=== PATIENT | female | born 1960 | race Two or more races ===

== ENCOUNTER 2020-07-01 07:24 | Emergency (ER) | payer MEDICARE, MEDICAID, SELFPAY ==
[2020-07-01 07:43] VITALS: BP 119/49; PULSE 74; RESP 20; TEMP 36.4; O2SAT 98; BMI 29.2
[2020-07-01 07:52] VITALS: BP 129/49; PULSE 78; RESP 20; TEMP 36.6; O2SAT 98
--- NOTE | 2020-07-01 08:14 | CT_ITS ---
EXAMINATION: CT HEAD WITHOUT CONTRAST CLINICAL INFORMATION: Status post fall. COMPARISON: 06/21/2020 TECHNIQUE: Contiguous axial imaging was performed from the skull base to vertex without intravenous administration of contrast. This CT examination was performed using dose optimization techniques as appropriate, variously including the following: *Automated exposure control *Adjustment of mA and/or kV according to patient size (this includes techniques or standardized protocols for targeted exams where dose is matched to indication/reason for exam; i.e. extremities or head) *Use of iterative reconstruction technique DLP: 649 mGy-cm FINDINGS: There is no evidence of acute intracranial hemorrhage or territorial infarction. No abnormal mass effect or midline shift is seen. Mack to white matter differentiation is well preserved. No extra-axial fluid collections are identified. The ventricles are normal in size. There is no abnormal attenuation within the brain parenchyma. The osseous structures and soft tissues are normal. The mastoid air cells and visualized portions of the paranasal sinuses are well aerated. IMPRESSION: No acute intracranial pathology.
--- NOTE | 2020-07-01 08:33 | ED_ITS ---
HPI - Headache General Chief Complaint: Headache Stated Complaint: head pain since 4am Time Seen by Provider: 07/01/20 08:12 Source: patient Mode of arrival: ambulatory Limitations: language barrier History of Present Illness HPI Narrative: patient's history of migraine and lupus 4 days ago patient got up from the bed felt dizzy fell and hit her right side of the head to the stand since then complaining of headache getting worse today headache was worse especially came to the hospital also she peeling dizziness similar to her vertigo in the past taking meclizine which is not helping MD elicited complaint: headache, migraine and other Onset (ago): day(s) (4) Onset description: gradually Location: right and temporal Exacerbating factors: movement of head/neck Relieving factors: nothing Associated symptoms: none Treatments prior to arrival: acetaminophen Related Data Previous Rx's Medication Instructions Recorded tizanidine 4 mg tablet 4 mg PO TID PRN 30 Days #90 tab 06/28/20 Allergies Allergy/AdvReac Type Severity Reaction Status Date / Time aspirin [ASA] Allergy Mild BLEEDING, Unverified 06/10/20 18:51 lip edema lidocaine [LIDOCAINE] Allergy Mild SWELLING,ITCHING, Unverified 06/10/20 18:51 pruritus latex [LATEX] Allergy Unknown SWELLING Unverified 06/10/20 18:51 Latex Allergy Unknown Unverified 04/12/20 00:00 nabumetone Allergy Unknown pruritus Verified 12/02/19 00:00 Pt states no food allergies Allergy Unknown Uncoded 04/12/20 00:00 Review of Systems Review of Systems: Constitutional : No Weight loss, No Fever, No Chills, No Night Sweats, No Fatigue, No Malaise ENT/Mouth : No Hearing loss, No Ear Pain, No Nasal Congestion, No Sinus Pain, No Hoarseness, No sore throat, No Rhinorrhea, No Swallowing Difficulty Eyes: No Eye Pain, No Swelling, No Redness, No Foreign Body, No Discharge, No Vision Changes Cardiovascular : No Chest Pain, No SOB, No Dyspnea on Exertion, No Orthopnea, No Edema, No Palpitations Respiratory : No Cough, No Sputum, No Wheezing, No Smoke Exposure, No Dyspnea Gastrointestinal : No Nausea, No Vomiting, No Diarrhea, No Constipation, No abdominal Pain, No Hematochezia, No Melena Genitourinary : no irregular bleeding, No Dysuria, No Urinary Frequency, No H ematuria, No Urinary Incontinence, No Urgency, No Flank Pain, No Urinary Flow Changes, No Hesitancy Musculoskeletal : No joint pain, No Myalgias, No Joint Swelling Skin : No Skin Lesions, No rash Neuro : No Weakness, No Numbness, No Paresthesias, No Loss of Consciousness, Psych : No Anxiety/Panic, No Depression, No SI/HI/AH/VH, No Social Issues, Heme/Lymph: No Bruising, No Bleeding,No Lymphadenopathy Endocrine : No Polyuria, No Polydipsia, No Temperature Intolerance Yes all other systems are reviewed and are negative [facility] Past Medical History Medical History Muscle spasm Social History Social History Alcohol intake: unknown Smoking Status: Never smoker Use of substances other than those prescribed or required for medical reasons: No Advance Directives: Yes Advance Directives Information Provided: Yes Advance Directives on File: No Physical Exam Vital Signs and I&O and Narrative: Vital Signs and I&O: Vital Signs Temp 97.9 F 07/01/20 07:52 Pulse 78 07/01/20 07:52 Resp 20 07/01/20 07:52 BP 129/49 L 07/01/20 07:52 Pulse Ox 98 07/01/20 07:52 Intake & Output 06/30/20 07/01/20 07/01/20 18:59 06:59 18:59 Weight 79.832 kg Body Mass Index 29.2 VITAL SIGNS: Reviewed. GENERAL: Well developed, well nourished, in no acute distress. HEAD: Normocephalic/atraumatic, Posterior oropharynx was without edema, erythema or exudate. EYES: PERRLA, EOMI intact without pain, no nystagmus/pallor/icterus noted EARS: Ext canals without abnormality, TMs non-bulging and non-erythematous NOSE: Nares patent bilateral OROPHARYNX: no oral lesions noted, posterior pharynx clear and non-erythematous without noted tonsillar enlargement/erythema/exudates NECK: Supple, no adenopathy LUNGS: Normal breath sounds. No adventitious sounds or accessory muscle use CARDIOVASCULAR: Regular rate and rhythm without noted murmurs, no JVD or lower extremity edema. ABDOMEN: Soft, non-tender, non-distended with bowel sounds. No rigidity. No guarding. No palpable masses or hernias noted MUSCULOSKELETAL: No tenderness, deformities, or effusions noted on gross inspection. EXTREMITIES: No cyanosis, clubbing or edema. SKIN: Inspection of the skin reveals no rashes, ulcerations, jaundice, pallor, or petechiae NEUROLOGIC: Alert and oriented x 3. Strength and sensation to light touch were grossly intact x 4. Discharge Plan Discharge Prescriptions: No Action tizanidine 4 mg tablet 4 mg PO TID PRN (Reason: muscle spasticity) 30 Days Qty: 90 RF: 3
[2020-07-01 08:34] LABS: MANUAL DIFF FLAG NO
[2020-07-01 08:37] LABS: Basophils Percent Auto 0.4 % (0-2); Eosinophils Absolute Auto 0.1 X10*3/uL (0.0-0.4); Eosinophils Percent Auto 1.9 % (0-4); Hematocrit 35.3 % (37-47); Hemoglobin 12.2 g/dl (12.0-16.0); Imm Gran Abs Auto 0.01 X10*3/uL (0.00-0.03); Imm Gran Pct Auto 0.1 % (0.0-0.4); Lymphocytes Absolute Auto 1.8 X10*3/uL (1.2-4.9); Lymphocytes Percent Auto 26.9 % (20-40); Mean Corpuscular HGB Conc 34.6 g/dl (31.0-35.0); Mean Corpuscular Hemoglobin 27.8 pg (27.0-33.0); Mean Corpuscular Volume 80.4 fL (80-98); Mean Platelet Volume 10.1 fL (9.4-12.3); Monocytes Absolute Auto 0.6 X10*3/uL (0.1-1.2); Monocytes Percent Auto 8.5 % (2-11); Neutrophils Absolute Auto 4.2 X10*3/uL (2.0-8.3); Neutrophils Percent Auto 62.2 % (45-73); Platelet Count 181 X10*3/uL (160-400); Red Blood Count 4.39 X10*6/uL (4.20-5.50); Red Cell Distribution Width 13.8 % (11.0-16.0); White Blood Count 6.8 X10*3/uL (4.8-10.8)
[2020-07-01 09:05] LABS: Anion Gap 12 (12-20); Blood Urea Nitrogen 18 mg/dL (9-16); Carbon Dioxide 29 mmol/L (22-29); Chloride 102 mmol/L (96-108); Creatinine Clr Calc Pharmacy 63.1; Estimated Glomerular Filt Rate 57; Glucose Random 101 mg/dL (60-115); Sodium 139 mmol/L (135-145)
[2020-07-01] MEDS: ondansetron HCL 4 MG/2 ML VIAL IVPUSH (09:41)
[2020-07-01] MEDS: Morphine Sulfate 4 MG/ML CARTRIDGE IVPUSH (09:41)
[2020-07-01] MEDS: 0.9 % Sodium Chloride 1,000 ML 999 ML IVCONT (09:41)
[2020-07-01 09:47] VITALS: BP 116/55; PULSE 68; TEMP 36.4; O2SAT 97
[2020-07-01 10:19] VITALS: BP 149/78; PULSE 76; RESP 18
== END 2020-07-01 11:09 | disposition home or self-care (01) ==
PROVIDERS: Emergency Provider Internal Medicine; PCP Internal Medicine
DX: R51.9 Headache, unspecified (principal); S09.90XA Unspecified injury of head, initial encounter; W06.XXXA Fall from bed, initial encounter; I10 Essential (primary) hypertension; G20 Parkinson's disease; Y93.84 Activity, sleeping; Y92.013 Bedroom of single-family (private) house as the place of occurrence of the external cause; Y99.9 Unspecified external cause status; Z79.899 Other long term (current) drug therapy
CPT/HCPCS: 36415; 70450; 80048; 85025; 96361; 96374; 96375; 99284; J2270; J2405

== ENCOUNTER → 2020-08-09 13:40 | Outpatient (BNVA) | payer MEDICARE, MEDICAID, SELFPAY | PROVIDERS: PCP Internal Medicine; Referring Provider Internal Medicine; Visit Provider Internal Medicine Gastroenterology | DX: K59.01 Slow transit constipation (principal); G47.33 Obstructive sleep apnea (adult) (pediatric); G20 Parkinson's disease; Z79.899 Other long term (current) drug therapy; Z99.89 Dependence on other enabling machines and devices | CPT/HCPCS: Q3014 ==

== ENCOUNTER 2020-10-26 | Outpatient (REF) | payer OTHER, SELFPAY ==
[2020-11-02 07:34] LABS: FIT Int Ctl YES; FIT1 NEGATIVE (NEGATIVE); FIT2 NEGATIVE (NEGATIVE)
== END 2020-10-26 00:01 | disposition home or self-care (01) ==
LOC: HO.LNP
PROVIDERS: Visit Provider Internal Medicine Gastroenterology
DX: K59.01 Slow transit constipation (principal)
CPT/HCPCS: 82274

== ENCOUNTER 2020-10-30 11:45 | Emergency (ER) | payer OTHER, SELFPAY ==
--- NOTE | ~2020-10-30 | CT_ITS ---
EXAMINATION: CT HEAD WITHOUT CONTRAST CLINICAL INFORMATION: Headache and fall on several toe COMPARISON: Head CT 07/01/2020 TECHNIQUE: Contiguous axial imaging was performed from the skull base to vertex without intravenous administration of contrast. This CT examination was performed using dose optimization techniques as appropriate, variously including the following: *Automated exposure control *Adjustment of mA and/or kV according to patient size (this includes techniques or standardized protocols for targeted exams where dose is matched to indication/reason for exam; i.e. extremities or head) *Use of iterative reconstruction technique DLP: 649 mGy-cm FINDINGS: There is no evidence of acute intracranial hemorrhage or territorial infarction. No abnormal mass effect or midline shift is seen. Mack to white matter differentiation is well preserved. No extra-axial fluid collections are identified. The ventricles are normal in size. There is no abnormal attenuation within the brain parenchyma. The osseous structures and soft tissues are normal. The mastoid air cells and visualized portions of the paranasal sinuses are well aerated. CT/CT head/brain wo con IMPRESSION: No acute intracranial pathology.
--- NOTE | 2020-10-30 12:15 | ED.HA ---
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 States 6 days ago she fell hit the right side of her head and has been having right-sided head pain along the scalp. States she also has a history of migraine headaches and this does not feel like it. She denies any other injury. Denies any fever or chills. No recent illness. She does report she lives with her daughter and uses a walker at baseline. MD elicited complaint: headache Onset description: gradually Quality & Timing: aching Exacerbating factors: other (Scalp palpation) Relieving factors: rest Context: occurred at rest Associated symptoms: none Treatments prior to arrival: none Related Data Home Medications Medication Instructions Recorded Confirmed benztropine 0.5 mg tablet mg PO 08/09/20 09/08/20 clonazepam 0.5 mg tablet mg PO 08/09/20 09/08/20 lisinopril 5 mg tablet mg PO 08/09/20 09/08/20 pantoprazole 40 mg tablet,delayed mg PO 08/09/20 09/08/20 release prazosin 2 mg capsule mg PO 08/09/20 09/08/20 rivaroxaban 20 mg tablet mg PO 08/09/20 09/08/20 sucralfate 1 gram tablet PO 08/09/20 09/08/20 zolpidem 5 mg tablet mg PO 08/09/20 09/08/20 Previous Rx's Medication Instructions Recorded tizanidine 4 mg tablet 4 mg PO TID PRN 30 Days #90 tab 06/28/20 yofdebxevc-bxuqiciuklekj-afsw 1 cap PO Q6H PRN #20 cap 07/01/20 [Fioricet] cholecalciferol (vitamin D3) 50 50 mcg PO DAILY #30 cap 08/03/20 mcg (2,000 unit) capsule hydrochlorothiazide 25 mg tablet 25 mg PO DAILY 90 Days #90 tab 08/18/20 acetaminophen 650 mg 1,300 mg PO Q8H PRN #180 tab 08/25/20 tablet,extended release amitriptyline 100 mg tablet 100 mg PO BEDTIME #30 tab 08/25/20 sennosides 8.6 mg tablet 17.2 mg PO BID PRN #120 tab 08/27/20 hydrocodone 5 mg-acetaminophen 325 1 tab PO BID PRN 30 Days #60 tab 09/29/20 mg tablet lactulose 20 gram/30 mL oral 20 g PO BID 30 Days #1800 ml 10/19/20 solution atorvastatin 40 mg tablet 40 mg PO BEDTIME 90 Days #90 tab 10/25/20 Allergies Allergy/AdvReac Type Severity Reaction Status Date / Time aspirin [ASA] Allergy Mild BLEEDING, Verified 09/08/20 14:26 lip edema lidocaine [LIDOCAINE] Allergy Mild SWELLING,ITCHING, Verified 09/08/20 14:26 pruritus latex [LATEX] Allergy Unknown SWELLING Verified 09/08/20 14:26 nabumetone Allergy Unknown pruritus Verified 09/08/20 14:26 Review of Systems Review of Systems: Constitutional: No Weight loss, No Fever, No Chills, No Night Sweats, No Fatigue, No Malaise ENT/Mouth: No Hearing loss, No Ear Pain, No Nasal Congestion, No Sinus Pain, No Hoarseness, No sore throat, No Rhinorrhea, No Swallowing Difficulty Eyes: No Eye Pain, No Swelling, No Redness, No Foreign Body, No Discharge, No Vision Changes Cardiovascular: No Chest Pain, No SOB, No Dyspnea on Exertion, No Orthopnea, No Edema, No Palpitations Respiratory: No Cough, No Sputum, No Wheezing, No Smoke Exposure, No Dyspnea Gastrointestinal: No Nausea, No Vomiting, No Diarrhea, No Constipation, No abdominal Pain, No Hematochezia, No Melena Genitourinary: no irregular bleeding, No Dysuria, No Urinary Frequency, No Hematuria, No Urinary Incontinence, No Urgency, No Flank Pain Musculoskeletal: No joint pain, No Myalgias, No Joint Swelling Skin: No Skin Lesions, No rash Neuro: No Weakness, No Numbness, No Paresthesias, No Loss of Consciousness, No Dizziness, + Headache Psych: No Social Issue Heme/Lymph: No Bruising, No Bleeding,No Lymphadenopathy Endocrine: No Polyuria, No Polydipsia, No Temperature Intolerance Yes all other systems are reviewed and are negative [facility] Past Medical History Medical History (Updated 10/30/20 @ 15:13 by Francis Hunt NP) Asthma affecting in first trimester Cholecystectomy planned Constipation by delayed colonic transit Essential hypertension GERD (gastroesophageal reflux disease) History of DVT (deep vein thrombosis) Idiopathic Parkinsonism Muscle spasm Nausea ITZ (obstructive sleep apnea) Stroke Surgical History (Updated 08/09/20 @ 18:39 by Patsy Barros MD) S/P appendectomy S/P colonoscopy S/P endoscopy S/P hysterectomy with oophorectomy (Unknown) S/P laparoscopic sleeve gastrectomy Family History Family History (Updated 08/09/20 @ 18:42 by Patsy Barros MD) Father No problems noted. Mother Lung cancer Hypertension Social History Social History Alcohol intake: unknown Smoking Status: Never smoker Advance Directives: No Advance Directives Information Provided: No Physical Exam Vital Signs: Vital Signs: Last Vital Signs Temp 98.2 F 10/30/20 12:19 Pulse 88 10/30/20 12:19 Resp 20 10/30/20 12:19 BP 149/72 H 10/30/20 12:19 Pulse Ox 99 10/30/20 12:19 Body Mass Index 26.4 Reviewed Const: General: cooperative; No acute distress or intoxicated appearing Nutritional Appearance: average body habitus Orientation/consciousness: patient oriented x3 HENMT: Head: Yes normal to inspection Head images: 1. Area of pain and to palpation over this scalp area. No obvious hematoma or abrasion or ecchymosis. Ears: hearing grossly normal bilaterally Eyes: General: appearance normal, both eyes and all related structures Visual Lopez: normal visual lopez by confrontation Neck: Neck: Yes normal visual inspection, No positive Brudzinski's sign, No positive Kernig's sign and No tender Thyroid: Thyroid normal Chest: Chest palpation & inspection: normal inspection of the chest Resp: Effort & Inspection: normal respiratory effort Auscultation: clear to auscultation bilaterally Cardio: Jugular venous distension: no JVD Rhythm: regular rhythm Heart sounds: S1 normal heart sound present and S2 normal heart sound present GI: Inspection: Yes normal to inspection Percussion: Yes normal to percussion Auscultation: normal bowel sounds : General: Yes no CVA tenderness Back/Spine/Pelvis: Back: no CVA tenderness Skin: General skin exam: no rashes or lesions noted Neuro: General: patient oriented x3 Extrem: General: Yes normal to inspection NIH Stroke Scale Internal: Initial- Upon Arrival Level of Consciousness: Alert Level of Consciousness Questions: Answers both questions correctly Level of Consciousness Commands: Performs both tasks correctly Best Gaze: Normal Visual: No visual loss Facial Palsy: Normal Motor Arm (Right): No drift Motor Arm (Left): No drift Motor Leg (Right): No drift Motor Leg (Left): No drift Limb Ataxia: Absent Sensory: Normal Best Language: No aphasia Dysarthia: Normal Extinction and Inattention: No abnormality Score: 0 Course Course Course Narrative: Feels better after Tylenol. Feels more reassured after negative head CT. Home safety with anticoagulated use reviewed with her in length. Out of bed ambulatory was slow but steady gait will discharge home to daughter. MDM - Headache Differential Diagnosis Differential diagnosis: Likely migraine, headache and postconcussion syndrome (Scalp contusion, intracranial bleed with anticoagulant); Unlikely tension headache, subarachnoid hemorrhage, meningitis and sinusitis Medical Records Attestation: I reviewed the patient's medical records. Lab Data Attestation: I reviewed the patient's lab results. Result diagrams: 10/30/20 13:29 10/30/20 13:29 Labs: Lab Results 10/30/20 10/30/20 10/30/20 Range/Units 13:29 13:29 13:29 WBC 7.0 (4.8-10.8) X10*3/uL RBC 4.63 (4.20-5.50) X10*6/uL Hgb 13.0 (12.0-16.0) g/dl Hct 36.8 L (37-47) % MCV 79.5 L (80-98) fL MCH 28.1 (27.0-33.0) pg MCHC 35.3 H (31.0-35.0) g/dl RDW 13.7 (11.0-16.0) % Plt Count 198 (160-400) X10*3/uL MPV 10.0 (9.4-12.3) fL Immature Gran % (Auto) 0.3 (0.0-0.4) % Neut % (Auto) 67.2 (45-73) % Lymph % (Auto) 24.4 (20-40) % [place] % (Auto) 6.6 (2-11) % Eos % (Auto) 1.1 (0-4) % Baso % (Auto) 0.4 (0-2) % Lymph # (Auto) 1.7 (1.2-4.9) X10*3/uL [place] # (Auto) 0.5 (0.1-1.2) X10*3/uL Eos # (Auto) 0.1 (0.0-0.4) X10*3/uL Baso # (Auto) 0.0 (0.0-0.2) X10*3/uL Abs Immat Gran (auto) 0.02 (0.00-0.03) X10*3/uL Absolute Neuts (auto) 4.7 (2.0-8.3) X10*3/uL Absolute Nucleated RBC 0.000 (0.0-0.012) X10*3/uL Nucleated RBC % (auto) 0.0 (0.0-0.2) /100WBC PT 14.1 H (10.8-13.0) SEC INR 1.2 H (0.9-1.1) APTT 31.4 (24.1-38.0) SEC Sodium 140 (135-145) mmol/L Potassium 4.1 (3.3-5.1) mmol/L Chloride 101 (96-108) mmol/L Carbon Dioxide 29 (22-29) mmol/L Anion Gap 14 (12-20) BUN 25 H (9-16) mg/dL Creatinine 0.84 (0.5-1.4) mg/dL Estim Creat Clear Calc 69.9 Estimated GFR > 60 Random Glucose 89 (60-115) mg/dL Calcium 9.4 (8.4-10.2) mg/dL Total Bilirubin 0.5 (0.0-1.0) mg/dL AST 19 (5-31) U/L ALT 21 (0-31) U/L Alkaline Phosphatase 76 (39-117) U/L Troponin I High Sens (<3.5-17.0) ng/L Total Protein 6.7 (6.5-8.0) g/dL Albumin 3.9 (3.5-5.0) g/dL 10/30/20 Range/Units 13:29 WBC (4.8-10.8) X10*3/uL RBC (4.20-5.50) X10*6/uL Hgb (12.0-16.0) g/dl Hct (37-47) % MCV (80-98) fL MCH (27.0-33.0) pg MCHC (31.0-35.0) g/dl RDW (11.0-16.0) % Plt Count (160-400) X10*3/uL MPV (9.4-12.3) fL Immature Gran % (Auto) (0.0-0.4) % Neut % (Auto) (45-73) % Lymph % (Auto) (20-40) % [place] % (Auto) (2-11) % Eos % (Auto) (0-4) % Baso % (Auto) (0-2) % Lymph # (Auto) (1.2-4.9) X10*3/uL [place] # (Auto) (0.1-1.2) X10*3/uL Eos # (Auto) (0.0-0.4) X10*3/uL Baso # (Auto) (0.0-0.2) X10*3/uL Abs Immat Gran (auto) (0.00-0.03) X10*3/uL Absolute Neuts (auto) (2.0-8.3) X10*3/uL Absolute Nucleated RBC (0.0-0.012) X10*3/uL Nucleated RBC % (auto) (0.0-0.2) /100WBC PT (10.8-13.0) SEC INR (0.9-1.1) APTT (24.1-38.0) SEC Sodium (135-145) mmol/L Potassium (3.3-5.1) mmol/L Chloride (96-108) mmol/L Carbon Dioxide (22-29) mmol/L Anion Gap (12-20) BUN (9-16) mg/dL Creatinine (0.5-1.4) mg/dL Estim Creat Clear Calc Estimated GFR Random Glucose (60-115) mg/dL Calcium (8.4-10.2) mg/dL Total Bilirubin (0.0-1.0) mg/dL AST (5-31) U/L ALT (0-31) U/L Alkaline Phosphatase (39-117) U/L Troponin I High Sens 3.9 (<3.5-17.0) ng/L Total Protein (6.5-8.0) g/dL Albumin (3.5-5.0) g/dL Imaging Data CT scan - head: Radiologist's impression: [address] [id number] Scan ReportSigned Patient: Claudia Whaley#: [id number]: 1960cct:[id number]/Sex: 60 / FADM Date: 10/30/20Loc: Deanna Dr: Ordering Physician: Francis Hunt NP Date of Service: 10/30/20 Procedure(s): CT head/brain wo con Accession Number(s): [id number] cc: 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 This CT examination was performed using dose optimization techniques as appropriate, variously including the following: *Automated exposure control *Adjustment of mA and/or kV according to patient size (this includes techniques or standardized protocols for targeted exams where dose is matched to indication/reason for exam; i.e. extremities or head) *Use of iterative reconstruction technique DLP: 649 mGy-cm FINDINGS: There is no evidence of acute intracranial hemorrhage or territorial infarction. No abnormal mass effect or midline shift is seen. Mack to white matter differentiation is well preserved. No extra-axial fluid collections are identified. The ventricles are normal in size. There is no abnormal attenuation within the brain parenchyma. The osseous structures and soft tissues are normal. The mastoid air cells and visualized portions of the paranasal sinuses are well aerated. CT/CT head/brain wo con IMPRESSION: No acute intracranial pathology. Dictated By:DIANE HASSAN MDSigned By:<Electronically signed by DIANE HASSAN MD in OV>10/30/20 1304 DD/ 1232TD/TT: Environmental Research Project Manager: LUIZA ECG Data Interpretation: Normal sinus rhythm Inferior infarct , age undetermined Abnormal ECG Artifact When compared with ECG of 01-APR-2020 12:37 No significant change found Discharge Plan Discharge Clinical Impression: Contusion of scalp, Gait abnormality, Parkinson's disease Patient Disposition: Home, Self-Care Instructions: Rivaroxaban (By mouth), Fall Prevention for Older Adults (ED), Scalp Contusion in Adults (ED) Prescriptions: No Action tizanidine 4 mg tablet 4 mg PO TID PRN (Reason: muscle spasticity) 30 Days Qty: 90 RF: 3 cholecalciferol (vitamin D3) [Vitamin D3] 50 mcg (2,000 unit) capsule 50 mcg PO DAILY Qty: 30 RF: 11 hydrochlorothiazide 25 mg tablet 25 mg PO DAILY 90 Days Qty: 90 RF: 3 amitriptyline 100 mg tablet 100 mg PO BEDTIME Qty: 30 RF: 6 acetaminophen [8 Hour Pain Reliever] 650 mg tablet extended release 1,300 mg PO Q8H PRN (Reason: fever or pain) Qty: 180 RF: 6 sennosides [senna] 8.6 mg tablet 17.2 mg PO BID PRN (Reason: constipation) Qty: 120 RF: 4 hydrocodone-acetaminophen 5-325 mg tablet 1 tab PO BID PRN (Reason: pain) 30 Days Qty: 60 RF: 0 lactulose 20 gram/30 mL solution 20 g PO BID 30 Days Qty: 1800 RF: 5 atorvastatin 40 mg tablet 40 mg PO BEDTIME 90 Days Qty: 90 RF: 3 ivianbkewc-arbtkkbbvqpql-gbzk [Fioricet] 50-300-40 mg capsule 1 cap PO Q6H PRN (Reason: pain) Qty: 20 RF: 0 sucralfate 1 gram tablet PO RF: 0 lisinopril 5 mg tablet PO RF: 0 prazosin 2 mg capsule PO RF: 0 clonazepam 0.5 mg tablet PO RF: 0 zolpidem 5 mg tablet PO RF: 0 pantoprazole 40 mg tablet,delayed release (DR/EC) PO RF: 0 benztropine 0.5 mg tablet PO RF: 0 Xarelto 20 mg tablet PO RF: 0 Referrals: Jennie Webb MD [Primary Care Provider] - 1 week
[2020-10-30 12:19] VITALS: BP 149/72; PULSE 88; RESP 20; TEMP 36.8; O2SAT 99; BMI 26.4
--- NOTE | 2020-10-30 12:32 | ECG_ITS ---
Test Reason : DIZZINESS Blood Pressure : / mmHG Vent. Rate : 075 BPM Atrial Rate : 075 BPM P-R Int : 176 ms QRS Dur : 084 ms QT Int : 386 ms P-R-T Axes : 042 -27 023 degrees QTc Int : 431 ms Normal sinus rhythm cannot exclude old Inferior infarct , age undetermined Abnormal ECG When compared with ECG of 01-APR-2020 12:37, Inferior infarct is now Present (could also be from lead positioning) Referred By: Francis Hunt Electronically Signed By:CELINE BECKWITH
[2020-10-30 13:34] LABS: MANUAL DIFF FLAG NO
[2020-10-30 13:40] LABS: Basophils Percent Auto 0.4 % (0-2); Eosinophils Absolute Auto 0.1 X10*3/uL (0.0-0.4); Eosinophils Percent Auto 1.1 % (0-4); Hematocrit 36.8 % (37-47); Imm Gran Abs Auto 0.02 X10*3/uL (0.00-0.03); Imm Gran Pct Auto 0.3 % (0.0-0.4); Lymphocytes Absolute Auto 1.7 X10*3/uL (1.2-4.9); Lymphocytes Percent Auto 24.4 % (20-40); Mean Corpuscular HGB Conc 35.3 g/dl (31.0-35.0); Mean Corpuscular Hemoglobin 28.1 pg (27.0-33.0); Mean Corpuscular Volume 79.5 fL (80-98); Monocytes Absolute Auto 0.5 X10*3/uL (0.1-1.2); Monocytes Percent Auto 6.6 % (2-11); Neutrophils Absolute Auto 4.7 X10*3/uL (2.0-8.3); Neutrophils Percent Auto 67.2 % (45-73); Platelet Count 198 X10*3/uL (160-400); Red Blood Count 4.63 X10*6/uL (4.20-5.50); Red Cell Distribution Width 13.7 % (11.0-16.0)
[2020-10-30 13:51] LABS: INTERNATIONAL NORM RATIO 1.2 (0.9-1.1); Prothrombin Time 14.1 SEC (10.8-13.0)
[2020-10-30 13:53] LABS: Partial Thromboplastin Time 31.4 SEC (24.1-38.0)
[2020-10-30] MEDS: Acetaminophen 325 MG TABLET 975 MG PO (13:54)
[2020-10-30 14:06] LABS: Alanine Aminotransferase 21 U/L (0-31); Albumin Level 3.9 g/dL (3.5-5.0); Alkaline Phosphatase 76 U/L (39-117); Anion Gap 14 (12-20); Aspartate Amino Transferase 19 U/L (5-31); Bilirubin Total 0.5 mg/dL (0.0-1.0); Blood Urea Nitrogen 25 mg/dL (9-16); Calcium 9.4 mg/dL (8.4-10.2); Carbon Dioxide 29 mmol/L (22-29); Chloride 101 mmol/L (96-108); Creatinine Clr Calc Pharmacy 69.9; Estimated Glomerular Filt Rate > 60; Glucose Random 89 mg/dL (60-115); Potassium 4.1 mmol/L (3.3-5.1); Sodium 140 mmol/L (135-145); Total Protein 6.7 g/dL (6.5-8.0)
[2020-10-30 14:12] LABS: Troponin-I High Sensitivity 3.9 ng/L (<3.5-17.0)
[2020-10-30 14:56] VITALS: BP 128/67; PULSE 74; RESP 20; TEMP 36.9; O2SAT 98
== END 2020-10-30 15:26 | disposition home or self-care (01) ==
PROVIDERS: Nurse Practitioner Primary Care; Emergency Provider Emergency Medicine; PCP Internal Medicine
DX: S00.03XA Contusion of scalp, initial encounter (principal); W01.0XXA Fall on same level from slipping, tripping and stumbling without subsequent striking against object, initial encounter; R26.9 Unspecified abnormalities of gait and mobility; G20 Parkinson's disease; I10 Essential (primary) hypertension; Y93.89 Activity, other specified; Y92.019 Unspecified place in single-family (private) house as the place of occurrence of the external cause; Y99.9 Unspecified external cause status; Z86.718 Personal history of other venous thrombosis and embolism; Z79.01 Long term (current) use of anticoagulants
CPT/HCPCS: 36415; 70450; 80053; 84484; 85025; 85610; 85730; 93005; 99284; J1642

== ENCOUNTER → 2021-01-18 14:21 | Outpatient (BNVA) | payer OTHER, SELFPAY | PROVIDERS: PCP Internal Medicine; Visit Provider Internal Medicine | DX: R07.2 Precordial pain (principal); I35.1 Nonrheumatic aortic (valve) insufficiency; I10 Essential (primary) hypertension | CPT/HCPCS: 99202 ==

== ENCOUNTER → 2021-02-01 14:52 | Outpatient (BNVA) | payer OTHER, SELFPAY | PROVIDERS: PCP Internal Medicine; Visit Provider Physician Assistant | DX: E66.3 Overweight (principal); K91.2 Postsurgical malabsorption, not elsewhere classified; Z90.3 Acquired absence of stomach [part of]; Z68.29 Body mass index [BMI] 29.0-29.9, adult; Z98.84 Bariatric surgery status | CPT/HCPCS: 99212 ==

== ENCOUNTER → 2021-03-10 14:43 | Outpatient (REF) | payer OTHER, SELFPAY ==
--- NOTE | 2021-03-10 14:51 | CA_ITS ---
Transthoracic Echocardiogram Patient (Last, First, Middle): Angelina Whaley, Gender: Female Date of : 1960 Age: 60 Procedure Date: 03/10/2021 Procedure Type: Transthoracic Echocardiogram Location: OP Height: 165.1 cm Weight: 77.57 kg BSA: 1.85 m2 Heart Rate: bpm BP: 115 / 60 mmHg Gag Writer: CHRISTOPHER Referring MD: Jose Brown MD Symptoms: I35.1 - Nonrheumatic aortic (valve) insufficiency Study Quality: Fair ECG Rhythm: Sinus Conclusions: - The left ventricular systolic function is low normal. The calculated ejection fraction is 52% by biplane method. - There is mild aortic valve regurgitation. - Small plaque is seen in the sino tubular ridge. Findings Left Ventricle Normal left ventricular cavity size. There is normal left ventricular wall thickness. The left ventricular systolic function is low normal. The calculated ejection fraction is 52% by biplane method. There is no evidence of regional wall motion abnormalities. E/E prime ratio is between 8 and 15 consistent with indeterminate filling pressures. Evidence suggests grade I (mild) diastolic dysfunction. Right Ventricle Normal right ventricular cavity size. There is low normal right ventricular systolic function. Atria Both atria are normal in size. Aortic Valve There is a normal trileaflet aortic valve. There is no aortic valve stenosis. There is mild aortic valve regurgitation. Mitral Valve The posterior mitral leaflet has restricted mobility. There is trace mitral valve regurgitation. There is no mitral valve stenosis. Pulmonic Valve The pulmonic valve is likely normal. Tricuspid Valve Normal tricuspid valve structure. There is trace tricuspid valve regurgitation. The pulmonary artery systolic pressure is normal. Great Vessels The aortic annulus, sinuses of valsalva, asc aorta, and aortic arch are normal in size. Small plaque is seen in the sino tubular ridge. Venous The inferior vena cava is normal in size and collapses greater than 50% with inspiration. Pericardium/Pleural There is no evidence of pericardial effusion. Prior Study Comparison Changes noted compared to prior study dated: 09/20/2017. Aortic regurgitation seems less prominent. Measurements 2D Linear Measurements IVSd: 0.87 0.6-0.9/0.6-1.0 cm LVIDd: 4.55 3.9-5.3/4.2-5.9 cm LVIDd Index: 2.46 2.4-3.2/2.2-3.1 cm/m2 LVIDs: 2.92 2.0-3.6 cm LVPWd: 0.84 0.7-1.1 cm Ao Root: 3.30 2.1-3.5 cm LA Diam: 3.20 2.7-3.8/3.0-4.0 cm LAIDs Index: 1.73 1.5-2.3 cm/m2 LV Mass: 156.67 67-162/88-224 g LV Mass Index: 84.69 43-95/49-115 g/m2 LVOT Diam: 2.10 3.0+(-)1.3 cm 2D Systolic Function EF 4C: 52.00 >55% EF 2C: 55.00 >55% EF BiP: 51.90 >55% Mitral Valve MV Pk E: 0.74 MV PK A: 0.98 MV Decel Time: 350.00 E/A: 0.80 E'Lateral: 8.16 E'Medial: 5.33 E/E' Med: 13.90 E/E' Lat: 9.10 PHT: 103.00 MVA PHT: 2.14 Decel Baraga: 2.11 Aortic Valve AoV Pk Gera: 1.56 AoV Mn Gera: 1.05 AoV VTI: 0.29 AoV Pk Grad: 10.00 Aov Mn Grad: 5.00 DEV Cont.VTI: 2.34 AI Pk Gera: 3.60 AI [place]aga: 1.10 LVOT LVOT Pk Gera: 0.90 LVOT Mn Gera: 0.59 LVOT VTI: 0.19 LVOT Pk Grad: 3.00 LVOT Mn Grad: 2.00 LVOT Diam: 2.10 LVOT Area: 3.46 Diastolic Function MV Pk E: 0.74 MV Pk A: 0.98 E/A: 0.80 E'Medial: 5.33 E/E' Med: 13.90 E' Laterial: 8.16 E/E' Lat: 9.10 Tricuspid Valve TR Pk Gera: 1.63 TR Pk Grad: 11.00 RA Press: 3.00 RVSP: 14.00 Great Vessels Aorta Ao Root-2D: 3.30 2.0-3.7 cm Ao Asc: 3.20 2.1-3.4 cm Ao Arch: 2.80 Updated in Other Vendor System with Status of Final Jose Brown MD electronically signed on 03/12/2021 12:53:04 PM with status of Final
== END ==
LOC: HO.CARD 14:43
PROVIDERS: PCP Internal Medicine; Visit Provider Internal Medicine
DX: I35.1 Nonrheumatic aortic (valve) insufficiency (principal)
CPT/HCPCS: 93306

== ENCOUNTER → 2021-03-16 13:45 | Outpatient (BNVA) | payer OTHER, SELFPAY | PROVIDERS: PCP Internal Medicine; Visit Provider Nurse Practitioner Family | DX: K21.9 Gastro-esophageal reflux disease without esophagitis (principal); R07.2 Precordial pain; I10 Essential (primary) hypertension; E66.3 Overweight; Z90.3 Acquired absence of stomach [part of] | CPT/HCPCS: 99212 ==

== ENCOUNTER → 2021-03-23 10:03 | Outpatient (BNVA) | payer OTHER, SELFPAY | PROVIDERS: Visit Provider Nurse Practitioner Family | DX: K21.9 Gastro-esophageal reflux disease without esophagitis (principal); K59.01 Slow transit constipation | CPT/HCPCS: Q3014 ==

== ENCOUNTER → 2021-06-06 14:00 | Outpatient (BNVA) | payer OTHER, SELFPAY | PROVIDERS: PCP Internal Medicine; Visit Provider Dietitian, Registered | DX: E66.3 Overweight (principal); Z68.29 Body mass index [BMI] 29.0-29.9, adult | CPT/HCPCS: 97803 ==

== ENCOUNTER → 2021-06-14 11:38 | Outpatient (BNVA) | payer OTHER, SELFPAY | PROVIDERS: PCP Internal Medicine; Visit Provider Nurse Practitioner Family ==

== ENCOUNTER 2021-06-22 12:43 | Emergency (ER) | payer OTHER, SELFPAY ==
--- NOTE | ~2021-06-22 | CT_ITS ---
EXAMINATION: CT ABDOMEN AND PELVIS WITH CONTRAST CLINICAL INFORMATION: Left lower quadrant pain COMPARISON: CT abdomen pelvis 04/21/2019 TECHNIQUE: Multidetector volumetric images were obtained from the superior aspect of the liver through the pubic symphysis following administration 85 mL of Omnipaque 350 intravenous contrast. Sagittal and coronal reformatted images were obtained on the technologist's workstation. Oral contrast: No This CT examination was performed using dose optimization techniques as appropriate, variously including the following: *Automated exposure control *Adjustment of mA and/or kV according to patient size (this includes techniques or standardized protocols for targeted exams where dose is matched to indication/reason for exam; i.e. extremities or head) *Use of iterative reconstruction technique DLP: 671 mGy-cm FINDINGS: LUNG BASES: The visualized lung bases are unremarkable. LIVER, GALLBLADDER, AND BILIARY TREE: The liver is normal in size, shape, and attenuation. No focal hepatic lesion or biliary ductal dilatation is present. Status post cholecystectomy. PANCREAS: Unremarkable. SPLEEN: Unremarkable. Tiny subcapsular splenic granuloma seen. ADRENAL GLANDS: Unremarkable. KIDNEYS AND URETERS: The kidneys are normal in size, shape, and attenuation. No hydronephrosis, hydroureter, or calculi seen. No perinephric stranding. BLADDER: Unremarkable. GASTROINTESTINAL TRACT: Patient has undergone a gastric sleeve The small and large bowel are unremarkable. The appendix is not seen but there is no evidence of appendicitis. ABDOMINAL WALL: A small periumbilical hernia seen containing only fat. There is some mild diastases of the rectus muscles just above the level of the umbilicus with some minimal bulging forward of transverse colon. Postsurgical changes present in the anterior lower abdominal wall. No recurrent hernia is seen. There has been no interval change in appearance compared to the 2019 study. LYMPH NODES: No retroperitoneal lymphadenopathy. VASCULAR: Unremarkable PELVIC VISCERA: Surgically removed OSSEOUS STRUCTURES: Unremarkable. CT/CT abdomen pelvis w con IMPRESSION: Postop changes with previous gastric sleeve, cholecystectomy, hysterectomy and abdominal wall hernia repair. No acute finding. An explanation for the patient's acute left lower quadrant pain has not been found
--- NOTE | ~2021-06-22 | US_ITS ---
EXAMINATION: US VENOUS ULTRASOUND WITH DOPPLER LOWER EXTREMITY, LEFT CLINICAL INFORMATION: Pain. History of previous DVT. COMPARISON: Previous left lower extremity venous ultrasounds most recent August 2019 TECHNIQUE: Ultrasound of the deep veins is performed from the hip to the calf with compression sonography and color and pulse Doppler assessment. Spectral analysis with color-flow imaging is performed. FINDINGS: There is wall thickening and hyper and hypoechoic material against the wall of the left greater saphenous vein in the mid thigh and upper thigh and at the saphenofemoral junction probably representing changes from old DVT. This is similar to most recent exam August 2019. There is a hypoechoic material against the wall of the popliteal vein. This is similar to August 2019 exam and may represent changes from old DVT as well. The common femoral, superficial femoral, profunda and posterior tibial and peroneal veins are patent. There is a 2.7 x 0.7 x 2.4 cm Dean's cyst. There is left inguinal lymphadenopathy.. US/US venous duplex LE LT IMPRESSION: Changes of old DVT in the greater saphenous vein and probable chronic changes from DVT in the popliteal vein as well. These findings are similar to August 2019 exam. If there is clinical suspicion of acute DVT, short-term follow-up exam in several days would be recommended to look for interval change.
[2021-06-22 13:24] VITALS: BP 140/58; PULSE 74; RESP 18; TEMP 36.8; O2SAT 99; BMI 29.4
[2021-06-22 15:02] VITALS: BP 156/64; PULSE 78; RESP 18; TEMP 36.6; O2SAT 97
--- NOTE | 2021-06-22 15:09 | ED.ABDPAIN ---
HPI - Abdominal Pain General Chief Complaint: Abdominal Pain Stated Complaint: Abd Pain Time Seen by Provider: 06/22/21 15:06 Source: patient Limitations: language barrier ([facility] [employer] used) History of Present Illness HPI narrative: This is a 60-year-old female with history of Parkinson's disease, also DVT, also laparotomy and partial gastrectomy, colostomy since reversed, complains of abdominal pain for the last 4 days, progressively worse. The patient has had nausea but no vomiting. She has had some yellowish mucoid diarrhea. She did feel that she had a fever this morning. She denies any urinary symptoms. The pain is in her left lower abdomen. She also said the pain radiates down her left leg. She feels that her left leg is swollen. She is on anticoagulants. Related Data Home Medications Medication Instructions Recorded Confirmed clonazepam 0.5 mg tablet 0.5 mg PO DAILY tab 01/18/21 03/17/21 donepezil 5 mg tablet 5 mg PO DAILY 01/18/21 03/17/21 melatonin 5 mg tablet 5 mg PO BEDTIME 01/18/21 03/17/21 prazosin 2 mg capsule 2 mg PO DAILY cap 01/18/21 03/17/21 zolpidem 5 mg tablet 0.5 mg PO BEDTIME tab 01/18/21 03/17/21 OTC multivitamin PO 02/01/21 03/17/21 Previous Rx's Medication Instructions Recorded hydrochlorothiazide 25 mg tablet 25 mg PO DAILY 90 Days #90 tab 08/18/20 atorvastatin 40 mg tablet 40 mg PO BEDTIME 90 Days #90 tab 10/25/20 acetaminophen 650 mg 1,300 mg PO Q8H PRN #180 tab 11/10/20 tablet,extended release (8 Hour Pain Reliever) amantadine HCl 100 mg tablet 100 mg PO BID #60 tab 12/02/20 shower seat #1 ea 12/07/20 lactulose 20 gram/30 mL oral 20 g PO BID 30 Days #1800 ml 12/17/20 solution albuterol sulfate 90 mcg/actuation 2 puff INHALATION Q6-8H 30 Days 02/08/21 aerosol inhaler #6.7 g calcium citrate 315 mg 2 tab PO BID #120 tab 02/08/21 calcium-vitamin D3 6.25 mcg (250 unit) tablet amitriptyline 100 mg tablet 100 mg PO BEDTIME #30 tab 03/14/21 benztropine 0.5 mg tablet 0.5 mg PO BID #60 tab 04/13/21 lisinopril 5 mg tablet 5 mg PO DAILY 90 Days #90 tab 05/03/21 meclizine 25 mg tablet 25 mg PO TID 90 Days #270 tab 05/21/21 rivaroxaban 20 mg tablet (Xarelto) 20 mg PO DAILY #30 tab 05/23/21 tizanidine 4 mg tablet 4 mg PO TID PRN 30 Days #90 tab 05/23/21 oxycodone-acetaminophen 5 mg-325 1 tab PO Q8H PRN 30 Days #90 tab 05/26/21 mg tablet (Percocet) docusate sodium 100 mg capsule 100 mg PO BID #60 cap 05/27/21 omeprazole 40 mg capsule,delayed 40 mg PO DAILY #30 cap 05/27/21 release sennosides 8.6 mg tablet (Jaimee-christian) 17.2 mg PO BID PRN #120 tab 05/27/21 Allergies Allergy/AdvReac Type Severity Reaction Status Date / Time latex [LATEX] Allergy Intermediate SWELLING Verified 06/14/21 15:15 nabumetone Allergy Intermediate pruritus Verified 06/14/21 15:15 aspirin [ASA] Allergy Mild BLEEDING, Verified 06/14/21 15:15 lip edema lidocaine [LIDOCAINE] Allergy Mild SWELLING,ITCHING, Verified 06/14/21 15:15 pruritus Review of Systems Review of Systems Yes all other systems are reviewed and are negative Constitutional: Reports fever(s) Eyes: Reports no additional eye complaints Reports system reviewed and no additional complaints, except as documented Cardiovascular: Reports no additional cardiovascular complaints Respiratory: Reports no additional respiratory complaints Gastrointestinal: Reports abdominal pain and Reports change in stool character Genitourinary: Reports no additional female genitourinary complaints Musculoskeletal: Reports as per HPI Denies Sensory deficit (Neuro) Physical Exam Vital Signs: Vital Signs: Last Vital Signs Temp 98.0 F 06/22/21 19:35 Pulse 58 06/22/21 19:35 Resp 20 06/22/21 19:35 BP 141/69 H 06/22/21 19:35 Pulse Ox 100 06/22/21 19:35 Body Mass Index 29.4 Const: Other: Patient is somewhat anxious appearing General: cooperative, no acute distress and alert Orientation/consciousness: patient oriented x3 HENMT: Head: Yes normal to inspection Eyes: General: appearance normal, both eyes and all related structures Eyelids: Yes eyelids normal Conjunctivae: conjunctivae normal Pupils: Equal, round and reactive pupils present Neck: Neck: Yes normal visual inspection and Yes supple Chest: Chest palpation & inspection: normal inspection of the chest Resp: Effort & Inspection: normal respiratory effort Auscultation: clear to auscultation bilaterally Cardio: Rate: regular rate Rhythm: regular rhythm Heart sounds: S1 normal heart sound present, S2 normal heart sound present, no gallops, no murmurs and no rubs GI: Inspection: No distended Palpation (GI): Soft to palpation, Tenderness to palpation present (GI) (Left lower abdomen) and Other GI palpation findings present (Non-distended) Auscultation: normal bowel sounds Skin: General skin exam: no rashes or lesions noted Neuro: General: patient oriented x3, no focal motor deficits and CN's II-XI intact bilaterally Cranial nerves: Yes Equal, round and reactive pupils present Cognition (Neuro): normal cognition Motor exam (neuro): 5/5 motor strength present throughout Sensory Exam: No Sensory deficit (Neuro) Extrem: General: Yes normal to inspection and Yes no pedal edema Psych: Appearance: grossly normal Affect: normal affect MDM - Abdominal Pain MDM Narrative Medical decision making narrative: Patient with left lower quadrant abdominal pain. Patient appears anxious, has little objective findings except tenderness on exam in a complaint of abdominal pain. White blood cell count normal. Urinalysis without evidence of infection, except isolated positive nitrites, CT of the abdomen and pelvis shows no acute findings. Patient is safe for outpatient follow-up. Patient also complained of left leg pain, has a history of DVT. Ultrasound was negative for evidence of DVT, patient is currently anticoagulated. Patient is mildly anemic Lab Data Attestation: I reviewed the patient's lab results. Result diagrams: 06/22/21 15:39 06/22/21 15:39 Labs: Lab Results 06/22/21 06/22/21 06/22/21 Range/Units 15:39 15:39 19:38 WBC 6.5 (4.8-10.8) X10*3/uL RBC 3.97 L (4.20-5.50) X10*6/uL Hgb 10.2 L D (12.0-16.0) g/dl Hct 30.2 L (37-47) % MCV 76.1 L (80-98) fL MCH 25.7 L (27.0-33.0) pg MCHC 33.8 (31.0-35.0) g/dl RDW 14.1 (11.0-16.0) % Plt Count 205 (160-400) X10*3/uL MPV 9.7 (9.4-12.3) fL Immature Gran % (Auto) 0.2 (0.0-0.4) % Neut % (Auto) 65.9 (45-73) % Lymph % (Auto) 25.0 (20-40) % [place] % (Auto) 7.5 (2-11) % Eos % (Auto) 1.1 (0-4) % Baso % (Auto) 0.3 (0-2) % Lymph # (Auto) 1.6 (1.2-4.9) X10*3/uL [place] # (Auto) 0.5 (0.1-1.2) X10*3/uL Eos # (Auto) 0.1 (0.0-0.4) X10*3/uL Baso # (Auto) 0.0 (0.0-0.2) X10*3/uL Abs Immat Gran (auto) 0.01 (0.00-0.03) X10*3/uL Absolute Neuts (auto) 4.3 (2.0-8.3) X10*3/uL Absolute Nucleated RBC 0.000 (0.0-0.012) X10*3/uL Nucleated RBC % (auto) 0.0 (0.0-0.2) /100WBC Sodium 141 (135-145) mmol/L Potassium 3.9 (3.3-5.1) mmol/L Chloride 105 (96-108) mmol/L Carbon Dioxide 28 (22-29) mmol/L Anion Gap 12 (12-20) BUN 19 H (9-16) mg/dL Creatinine 0.82 (0.5-1.4) mg/dL Estim Creat Clear Calc 75.4 Estimated GFR > 60 Random Glucose 79 (60-115) mg/dL Calcium 9.1 (8.4-10.2) mg/dL Total Bilirubin 0.4 (0.0-1.0) mg/dL AST 18 (5-31) U/L ALT 23 (0-31) U/L Alkaline Phosphatase 70 (39-117) U/L Total Protein 6.3 L (6.5-8.0) g/dL Albumin 3.7 (3.5-5.0) g/dL Lipase 32 (8-78) U/L Urine Color STRAW Urine Appearance CLEAR Urine pH 6.0 (5.0-8.0) Ur Specific [place] <= 1.005 (1.005-1.025) Urine Protein NEG (NEG-TRACE) MG/DL Urine Glucose (UA) NEG (NEG) MG/DL Urine Ketones NEG (NEG) MG/DL Urine Blood NEG (NEG) Urine Nitrite POS H (NEG) Ur Leukocyte Esterase NEG (NEG) Urine RBC 0-2 (0) /HPF Urine WBC 0-2 (0-4) /HPF Ur Squamous Epith Cells TRACE /LPF Urine Bacteria 3+ /LPF Imaging Data CT abdomen pelvis with IV contrast: Radiologist's impression: IMPRESSION: Postop changes with previous gastric sleeve, cholecystectomy, hysterectomy and abdominal wall hernia repair. No acute finding. An explanation for the patient's acute left lower quadrant pain has not been found? Discharge Plan Discharge Clinical Impression: Abdominal pain, Anxiety Patient Disposition: Home, Self-Care Instructions: Abdominal Pain (ED) Additional Instructions: Continue current medications. Follow up with primary care physician. Return for any new or worsened symptoms. Use ibuprofen for pain. Prescriptions: No Action hydrochlorothiazide 25 mg tablet 25 mg PO DAILY 90 Days Qty: 90 RF: 3 atorvastatin 40 mg tablet 40 mg PO BEDTIME 90 Days Qty: 90 RF: 3 acetaminophen [8 Hour Pain Reliever] 650 mg tablet extended release 1,300 mg PO Q8H PRN (Reason: fever or pain) Qty: 180 RF: 6 amantadine HCl 100 mg tablet 100 mg PO BID Qty: 60 RF: 0 (DME) shower seat large See Rx Instructions .Route .MEDSUPPLY Qty: 1 RF: 0 lactulose 20 gram/30 mL solution 20 g PO BID 30 Days Qty: 1800 RF: 5 albuterol sulfate 90 mcg/actuation HFA aerosol inhaler 2 puff inhalation Q6-8H 30 Days Qty: 6.7 RF: 6 calcium citrate-vitamin D3 315 mg-6.25 mcg (250 unit) tablet 2 tab PO BID Qty: 120 RF: 12 amitriptyline 100 mg tablet 100 mg PO BEDTIME Qty: 30 RF: 6 benztropine 0.5 mg tablet 0.5 mg PO BID Qty: 60 RF: 2 lisinopril 5 mg tablet 5 mg PO DAILY 90 Days Qty: 90 RF: 2 meclizine 25 mg tablet 25 mg PO TID 90 Days Qty: 270 RF: 1 tizanidine 4 mg tablet 4 mg PO TID PRN (Reason: muscle spasticity) 30 Days Qty: 90 RF: 3 Xarelto 20 mg tablet 20 mg PO DAILY Qty: 30 RF: 6 oxycodone-acetaminophen [Percocet] 5-325 mg tablet 1 tab PO Q8H PRN (Reason: pain) 30 Days Qty: 90 RF: 0 sennosides [Jaimee-christian] 8.6 mg tablet 17.2 mg PO BID PRN (Reason: constipation) Qty: 120 RF: 4 docusate sodium 100 mg capsule 100 mg PO BID Qty: 60 RF: 3 omeprazole 40 mg capsule,delayed release(DR/EC) 40 mg PO DAILY Qty: 30 RF: 3 clonazepam 0.5 mg tablet 0.5 mg PO DAILY RF: 0 prazosin 2 mg capsule 2 mg PO DAILY RF: 0 zolpidem 5 mg tablet 0.5 mg PO BEDTIME RF: 0 melatonin 5 mg tablet 5 mg PO BEDTIME RF: 0 donepezil 5 mg tablet 5 mg PO DAILY RF: 0 OTC multivitamin PO RF: 0 PMFSH Past Medical History Medical History Asthma affecting in first trimester BMI 29.0-29.9,adult CAD (coronary artery disease) Cholecystectomy planned Chronic back pain Constipation by delayed colonic transit DVT (deep vein thrombosis) in Essential hypertension GERD (gastroesophageal reflux disease) History of DVT (deep vein thrombosis) Hyperlipidemia 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 Mother Lung cancer Hypertension Social History Social History Alcohol intake: former Year quit: 1988 Advance Directives: No Advance Directives Information Provided: Yes Patient : No
[2021-06-22] MEDS: 0.9 % Sodium Chloride 1,000 ML 999 ML IV (15:42)
[2021-06-22] MEDS: ondansetron HCL 4 MG/2 ML VIAL IVPUSH (15:43)
[2021-06-22 15:44] LABS: MANUAL DIFF FLAG NO
[2021-06-22] MEDS: Morphine Sulfate 4 MG/ML CARTRIDGE IVPUSH (15:44)
[2021-06-22 15:46] LABS: Basophils Percent Auto 0.3 % (0-2); Eosinophils Absolute Auto 0.1 X10*3/uL (0.0-0.4); Eosinophils Percent Auto 1.1 % (0-4); Hematocrit 30.2 % (37-47); Hemoglobin 10.2 g/dl (12.0-16.0); Imm Gran Abs Auto 0.01 X10*3/uL (0.00-0.03); Imm Gran Pct Auto 0.2 % (0.0-0.4); Lymphocytes Absolute Auto 1.6 X10*3/uL (1.2-4.9); Mean Corpuscular HGB Conc 33.8 g/dl (31.0-35.0); Mean Corpuscular Hemoglobin 25.7 pg (27.0-33.0); Mean Corpuscular Volume 76.1 fL (80-98); Mean Platelet Volume 9.7 fL (9.4-12.3); Monocytes Absolute Auto 0.5 X10*3/uL (0.1-1.2); Monocytes Percent Auto 7.5 % (2-11); Neutrophils Absolute Auto 4.3 X10*3/uL (2.0-8.3); Neutrophils Percent Auto 65.9 % (45-73); Platelet Count 205 X10*3/uL (160-400); Red Blood Count 3.97 X10*6/uL (4.20-5.50); Red Cell Distribution Width 14.1 % (11.0-16.0); White Blood Count 6.5 X10*3/uL (4.8-10.8)
[2021-06-22 16:19] LABS: Alanine Aminotransferase 23 U/L (0-31); Albumin Level 3.7 g/dL (3.5-5.0); Alkaline Phosphatase 70 U/L (39-117); Anion Gap 12 (12-20); Aspartate Amino Transferase 18 U/L (5-31); Bilirubin Total 0.4 mg/dL (0.0-1.0); Blood Urea Nitrogen 19 mg/dL (9-16); Calcium 9.1 mg/dL (8.4-10.2); Carbon Dioxide 28 mmol/L (22-29); Chloride 105 mmol/L (96-108); Creatinine Clr Calc Pharmacy 75.4; Estimated Glomerular Filt Rate > 60; Glucose Random 79 mg/dL (60-115); Lipase 32 U/L (8-78); Potassium 3.9 mmol/L (3.3-5.1); Sodium 141 mmol/L (135-145); Total Protein 6.3 g/dL (6.5-8.0)
[2021-06-22] MEDS: iohexoL 350 MG/ML 100 ML INFUS..BTL IV (17:30)
[2021-06-22 17:36] VITALS: BP 127/55; PULSE 68; RESP 20; TEMP 36.6; O2SAT 99
[2021-06-22 19:35] VITALS: BP 141/69; PULSE 58; RESP 20; TEMP 36.7; O2SAT 100
[2021-06-22 20:01] LABS: Appearance Urine CLEAR; Color Urine STRAW; Glucose Urine UA NEG (NEG); Leukocyte Esterase Urine NEG (NEG); Nitrite Urine POS (NEG); Specific Gravity - Urine <= 1.005 (1.005-1.025); UACC Culture Trigger YES; Urine Blood NEG (NEG); Urine Ketones NEG (NEG); Urine Protein NEG (NEG-TRACE)
[2021-06-22 20:16] LABS: Bacteria Urine 3+ /LPF; RBC Urine 0-2 /HPF (0); Squamous Epithelial Cell Urine TRACE /LPF; WBC Urine 0-2 /HPF (0-4)
== END 2021-06-22 21:04 | disposition home or self-care (01) ==
PROVIDERS: Emergency Provider Emergency Medicine; PCP Internal Medicine
DX: R10.32 Left lower quadrant pain (principal); G20 Parkinson's disease; R11.2 Nausea with vomiting, unspecified; R60.0 Localized edema; Z86.718 Personal history of other venous thrombosis and embolism; Z79.01 Long term (current) use of anticoagulants; Z79.899 Other long term (current) drug therapy
CPT/HCPCS: 36415; 74177; 80053; 81001; 81003; 83690; 85025; 87086; 87088; 87186; 93971; 96361; 96374; 96375; 99284; J2270; J2405; Q9967

== ENCOUNTER 2021-07-14 14:14 | Outpatient (REF) | payer OTHER, SELFPAY ==
--- NOTE | ~2021-07-14 | MM_ITS ---
EXAMINATION: BONE DENSITOMETRY CLINICAL INDICATION: Menopause. COMPARISON: None (current study represents initial baseline exam). TECHNIQUE: Using a [employer]de DXA System (software version: 13.1) manufactured by [employer], dual-energy x-ray absorptiometry was performed of the lumbar spine and left hip. The images are of good technical quality. Summary results are attached. FINDINGS: AP SPINE L1-L4: BMD 1.313 g/cm2, Z-score 1.9, T-score 1.1, normal. LEFT FEMUR, NECK: BMD 1.000 g/cm2, Z-score 0.7, T-score -0.3, normal. LEFT FEMUR, TOTAL: BMD 1.077 g/cm2, Z-score 1.2, T-score 0.6, normal. IDENTIFIED RISK FACTORS: Early menopause, secondary osteoporosis, rheumatoid arthritis, height loss, hysterectomy, left oophorectomy. HISTORY OF FRACTURE: None listed. MEDICATIONS: Calcium supplements or multivitamin, vitamin D. MM/XR DEXA axial skeleton IMPRESSION: 1. DIAGNOSIS: Normal bone density based on the lowest T-score value of -0.3 in the femoral neck applying World Health Organization criteria. 2. 10-YEAR FRACTURE RISK PREDICTION, FRAX: Major osteoporotic fracture (clinical spine, forearm, hip or shoulder) 4.6%. Hip fracture 0.2%. 3. Treatment Recommendations: NOF guidelines recommend consideration for treatment in postmenopausal women and men age 50 and older presenting with the following: -A hip or vertebral (clinical or morphometric) fracture. -T-score less than or equal to -2.5 at the femoral neck or spine after appropriate evaluation to exclude secondary causes. -Low bone mass at the hip or spine and a 10-year fracture probability by FRAX of greater than or equal to 3% for hip fracture or greater than or equal to 20% for major osteoporotic fracture based on the [place] adapted WHO algorithm. 4. Other Recommendations: All treatment decisions require clinical judgment and consideration of individual patient factors, including patient preferences, comorbidities, previous drug use, risk factors not captured in the FRAX model (e.g. frailty, falls, vitamin D deficiency, increased bone turnover, interval significant decline in bone density) and possible under or overestimation of fracture risk by FRAX. FUTURE SCAN RECOMMENDATION: People with diagnosed cases of osteoporosis or at high risk for fracture should have regular bone mineral density tests. For patients eligible for Medicare, routine testing is allowed once every 2 years. The testing frequency can be increased to one year for patients who have rapidly progressing disease, those who are receiving or discontinuing medical therapy to restore bone mass, or have additional risk factors.
== END 2021-07-14 14:15 | disposition home or self-care (01) ==
LOC: HO.MAMMO 14:14
PROVIDERS: Visit Provider Internal Medicine
DX: Z13.820 Encounter for screening for osteoporosis (principal); M85.80 Other specified disorders of bone density and structure, unspecified site; Z78.0 Asymptomatic menopausal state; Z79.899 Other long term (current) drug therapy
CPT/HCPCS: 77080

== ENCOUNTER → 2021-08-24 13:49 | Outpatient (BNV) | payer OTHER, SELFPAY | PROVIDERS: PCP Student in an Organized Health Care Education/Training Program; Visit Provider Internal Medicine | DX: D64.9 Anemia, unspecified (principal) | CPT/HCPCS: 99213; 99214 ==

== ENCOUNTER 2021-09-02 07:51 | Outpatient (REF) | payer OTHER, SELFPAY | END 2021-09-02 07:52 | disposition home or self-care (01) | LOC: HO.MDS 07:51 | PROVIDERS: Visit Provider Internal Medicine | DX: D50.9 Iron deficiency anemia, unspecified (principal); Z45.2 Encounter for adjustment and management of vascular access device | CPT/HCPCS: 96365; 96366; J1200; J1642; J1750; Q0163 ==

== ENCOUNTER 2021-11-25 17:14 | Emergency (ER) | payer OTHER, SELFPAY ==
--- NOTE | ~2021-11-25 | XR_ITS ---
EXAMINATION: XR HIP, LEFT WITH PELVIS CLINICAL INFORMATION: Pain, denies fall COMPARISON: 06/22/2021 TECHNIQUE: Two views of the left hip. AP pelvis. FINDINGS: Alignment across the hips is anatomic with mild degenerative change along the bilateral acetabula and slight joint space narrowing. No acute fracture is seen. Degenerative changes are noted at the pubic symphysis. Sacroiliac joints are intact. XR/XR hip LT w PEL1V IMPRESSION: No acute findings identified. Mild degenerative changes of the hips.
--- NOTE | ~2021-11-25 | XR_ITS ---
EXAMINATION: XR CHEST CLINICAL INFORMATION: Cough COMPARISON: 08/02/2020 TECHNIQUE: Frontal view of the chest was obtained. FINDINGS: CT compatible right-sided chest port with catheter tip overlying the cavoatrial junction. Lungs are well-expanded and clear. No focal consolidation or mass. No pleural effusion or pneumothorax. Degenerative changes of the shoulders and spine. Surgical clips in the region the epigastrium. XR/XR chest 1V IMPRESSION: No acute pulmonary disease.
[2021-11-25 17:46] VITALS: BP 143/82; PULSE 77; RESP 16; TEMP 36.9; O2SAT 98; BMI 28.3
--- NOTE | 2021-11-25 17:54 | ECG_ITS ---
Test Reason : chest pain / sob Blood Pressure : / mmHG Vent. Rate : 075 BPM Atrial Rate : 075 BPM P-R Int : 166 ms QRS Dur : 088 ms QT Int : 386 ms P-R-T Axes : 029 -32 018 degrees QTc Int : 431 ms Normal sinus rhythm Left axis deviation Cannot rule out Anterior infarct , age undetermined Abnormal ECG When compared with ECG of 30-OCT-2020 12:52, No significant change was found Referred By: Daniel Gudino Electronically Signed By:Daquan Barbosa
[2021-11-25 18:13] LABS: MANUAL DIFF FLAG NO
[2021-11-25 18:14] LABS: Basophils Percent Auto 0.3 % (0-2); Eosinophils Absolute Auto 0.1 X10*3/uL (0.0-0.4); Hematocrit 36.9 % (37.0-47.0); Hemoglobin 12.9 g/dl (12.0-16.0); Imm Gran Abs Auto 0.02 X10*3/uL (0.00-0.03); Imm Gran Pct Auto 0.3 % (0.0-0.4); Lymphocytes Absolute Auto 1.7 X10*3/uL (1.2-4.9); Lymphocytes Percent Auto 23.1 % (20-40); Mean Corpuscular Hemoglobin 27.4 pg (27.0-33.0); Mean Corpuscular Volume 78.5 fL (80.0-98.0); Mean Platelet Volume 9.6 fL (9.4-12.3); Monocytes Absolute Auto 0.5 X10*3/uL (0.1-1.2); Monocytes Percent Auto 7.3 % (2-11); Platelet Count 196 X10*3/uL (160-400); Red Cell Distribution Width 17.6 % (11.0-16.0); White Blood Count 7.4 X10*3/uL (4.8-10.8)
[2021-11-25 18:28] LABS: Alanine Aminotransferase 20 U/L (0-31); Albumin Level 3.9 g/dL (3.5-5.0); Alkaline Phosphatase 71 U/L (39-117); Anion Gap 12 (12-20); Aspartate Amino Transferase 18 U/L (5-31); Bilirubin Direct 0.2 mg/dL (0.0-0.5); Bilirubin Total 0.5 mg/dL (0.0-1.0); Blood Urea Nitrogen 13 mg/dL (9-16); Calcium 9.6 mg/dL (8.4-10.2); Carbon Dioxide 28 mmol/L (22-29); Chloride 105 mmol/L (96-108); Creatinine Clr Calc Pharmacy 78.8; Estimated Glomerular Filt Rate > 60; Glucose Random 96 mg/dL (60-115); Potassium 3.7 mmol/L (3.3-5.1); Sodium 141 mmol/L (135-145); Total Protein 6.9 g/dL (6.5-8.0)
[2021-11-25 20:20] VITALS: BP 129/48; PULSE 73; RESP 16; TEMP 36.7; O2SAT 98
--- NOTE | 2021-11-25 21:53 | ED.GENADULT ---
HPI - General Adult General Chief complaint: General Medical Stated complaint: SOB/throat pain/extensive saliva/leg pain Time Seen by Provider: 11/25/21 21:49 Source: patient, family (Daughter) and hourly sign language interpreter Mode of arrival: ambulatory History of Present Illness HPI narrative: 61-year-old female with history of Parkinson's arrives with reports of left groin pain on the medial aspect for approximately 1 week but has significantly worsened over the past 3 days and is especially painful when her leg is ?moved upwards?. Patient denies any falls or traumatic events and denies any associated fevers, chills, inability to pass flatus or stool and denies any urinary pain/burning/frequency. In addition, she denies distal numbness/tingling/weakness. Patient states that she is chronically short of breath and this is a lot of anxiety inferior with regards to her Parkinson's condition. She states that she is continued to feel fatigued and weak and did not take any of her medication today because ?she did not feel well?. She currently is on Xarelto for history of DVT but denies chest pain/palpitations. Related Data Home Medications Medication Instructions Recorded Confirmed clonazepam 0.5 mg tablet 0.5 mg PO DAILY tab 01/18/21 11/16/21 melatonin 5 mg tablet 5 mg PO BEDTIME 01/18/21 11/16/21 prazosin 2 mg capsule 2 mg PO DAILY cap 01/18/21 11/16/21 zolpidem 5 mg tablet 0.5 mg PO BEDTIME tab 01/18/21 11/16/21 donepezil 5 mg tablet 10 mg PO DAILY tab 11/16/21 11/16/21 Previous Rx's Medication Instructions Recorded acetaminophen 650 mg 1,300 mg PO Q8H PRN #180 tab 11/10/20 tablet,extended release (8 Hour Pain Reliever) amantadine HCl 100 mg tablet 100 mg PO BID #60 tab 12/02/20 shower seat #1 ea 12/07/20 amitriptyline 100 mg tablet 100 mg PO BEDTIME #30 tab 03/14/21 lisinopril 5 mg tablet 5 mg PO DAILY 90 Days #90 tab 05/03/21 rivaroxaban 20 mg tablet (Xarelto) 20 mg PO DAILY #30 tab 05/23/21 tizanidine 4 mg tablet 4 mg PO TID PRN 30 Days #90 tab 05/23/21 docusate sodium 100 mg capsule 100 mg PO BID #60 cap 05/27/21 sennosides 8.6 mg tablet (Jaimee-christian) 17.2 mg PO BID PRN #120 tab 05/27/21 meclizine 25 mg tablet 25 mg PO TID 90 Days #270 tab 06/28/21 omeprazole 40 mg capsule,delayed 40 mg PO DAILY #30 cap 07/24/21 release hydrochlorothiazide 25 mg tablet 25 mg PO DAILY 90 Days #90 tab 07/26/21 albuterol sulfate 90 mcg/actuation 2 puff INHALATION Q6-8H 30 Days 10/03/21 aerosol inhaler #6.7 g benztropine 0.5 mg tablet 0.5 mg PO BID #60 tab 10/04/21 calcium citrate 315 mg 2 tab PO BID #120 tab 10/11/21 calcium-vitamin D3 6.25 mcg (250 unit) tablet atorvastatin 40 mg tablet 40 mg PO BEDTIME 90 Days #90 tab 11/01/21 oxycodone-acetaminophen 5 mg-325 1 tab PO Q8H PRN 30 Days #90 tab 11/01/21 mg tablet (Percocet) Allergies Allergy/AdvReac Type Severity Reaction Status Date / Time latex [LATEX] Allergy Intermediate SWELLING Verified 11/16/21 14:24 nabumetone Allergy Intermediate pruritus Verified 11/16/21 14:24 aspirin [ASA] Allergy Mild BLEEDING, Verified 11/16/21 14:24 lip edema lidocaine [LIDOCAINE] Allergy Mild SWELLING,ITCHING, Verified 11/16/21 14:24 pruritus Review of Systems Review of Systems: Pertinent positives and negatives as stated in HPI 10 point review of systems is otherwise negative. 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 Mother Lung cancer Hypertension Social History Social History Housing: Apartment Alcohol intake: former Year quit: 1988 Patient Tobacco Use Status: Former Tobacco user Tobacco use type: Cigarette e-Cigarette/Vaping Use: Never Used Second Hand Smoke Exposure: No Advance Directives: No Patient : No service: No Current occupational status: disabled Physical Exam ED Vital Signs: Vital Signs - 24 hr 11/25/21 17:46 11/25/21 20:20 11/25/21 22:21 Temperature 98.4 F 98.1 F Pulse Rate 77 73 Respiratory Rate 16 16 22 H Blood Pressure 143/82 H 129/48 L Pulse Oximetry 98 98 11/25/21 22:30 11/25/21 23:51 Temperature 98.1 F Pulse Rate 66 65 Respiratory Rate 18 10 L Blood Pressure 126/60 120/53 L Pulse Oximetry 97 98 BMI result Body Mass Index 28.3 VITAL SIGNS: Reviewed. GENERAL: Chronically ill, tearful, mild distress. HEAD: Normocephalic/atraumatic EYES: PERRLA, EOMI EARS: Ext canals without abnormality NOSE: Nares patent bilateral OROPHARYNX: no oral lesions noted, posterior pharynx clear LUNGS: Normal breath sounds. SpO2<98> CARDIOVASCULAR: Regular rate and rhythm without noted murmurs, no JVD or lower extremity edema. ABDOMEN: Soft, non-tender, non-distended with bowel sounds, there is no inguinal pain and no swelling to suggest either enlarged lymph nodes or hernia PELVIS: Stable and nontender MUSCULOSKELETAL: No tenderness, deformities, or effusions noted on gross inspection. EXTREMITIES: No cyanosis, clubbing or edema; proximal left medial thigh without erythema/induration and no palpable swelling to suggest abscess, extremity is warm to touch and sensation is baseline intact. SKIN: Inspection of the skin reveals no rashes NEUROLOGIC: Alert and oriented x 4. Strength and sensation to light touch were grossly intact x 4. Course Course Course Narrative: 61-year-old female with history and clinical presentation suggestive of possible musculoskeletal pain as the pelvis appears to be stable and nontender and there is no history of falls or other traumatic events. It is inconsistent with underlying infection, will obtain labs, imaging and patient is oxygenating well and is not tachypneic on room air. She will also be provided with pain medication. On review of all investigations and on re-evaluation there are no acute findings to suggest either infection or anemia, patient continues to oxygenating well on room air and has had complete resolution of her pain. On review of all imaging there is no evidence for acute fracture or dislocation. On both history and clinical exam there is no evidence of abscess. All results and findings were discussed with the patient at bedside and she was strongly encouraged to take her pain medications prior to it getting so strong that the medication does not work. The daughter who takes care of the patient received the same information. She is otherwise discharged home in stable condition. Medical Decision Making Lab Data Result diagrams: 11/25/21 18:06 11/25/21 18:06 Labs: Lab Results 11/25/21 11/25/21 11/25/21 Range/Units 18:06 18:06 23:14 WBC 7.4 (4.8-10.8) X10*3/uL RBC 4.70 (4.20-5.50) X10*6/uL Hgb 12.9 D (12.0-16.0) g/dl Hct 36.9 L (37.0-47.0) % MCV 78.5 L (80.0-98.0) fL MCH 27.4 (27.0-33.0) pg MCHC 35.0 (31.0-35.0) g/dl RDW 17.6 H (11.0-16.0) % Plt Count 196 (160-400) X10*3/uL MPV 9.6 (9.4-12.3) fL Immature Gran % (Auto) 0.3 (0.0-0.4) % Neut % (Auto) 68.0 (45-73) % Lymph % (Auto) 23.1 (20-40) % [place] % (Auto) 7.3 (2-11) % Eos % (Auto) 1.0 (0-4) % Baso % (Auto) 0.3 (0-2) % Lymph # (Auto) 1.7 (1.2-4.9) X10*3/uL [place] # (Auto) 0.5 (0.1-1.2) X10*3/uL Eos # (Auto) 0.1 (0.0-0.4) X10*3/uL Baso # (Auto) 0.0 (0.0-0.2) X10*3/uL Abs Immat Gran (auto) 0.02 (0.00-0.03) X10*3/uL Absolute Neuts (auto) 5.0 (2.0-8.3) x10*3/uL Absolute Nucleated RBC 0.000 (0.0-0.012) X10*3/uL Nucleated RBC % (auto) 0.0 (0.0-0.2) /100WBC Sodium 141 (135-145) mmol/L Potassium 3.7 (3.3-5.1) mmol/L Chloride 105 (96-108) mmol/L Carbon Dioxide 28 (22-29) mmol/L Anion Gap 12 (12-20) BUN 13 (9-16) mg/dL Creatinine 0.76 (0.5-1.4) mg/dL Estim Creat Clear Calc 78.8 Estimated GFR > 60 Random Glucose 96 (60-115) mg/dL Calcium 9.6 (8.4-10.2) mg/dL Total Bilirubin 0.5 (0.0-1.0) mg/dL Direct Bilirubin 0.2 (0.0-0.5) mg/dL AST 18 (5-31) U/L ALT 20 (0-31) U/L Alkaline Phosphatase 71 (39-117) U/L B-Natriuretic Peptide 27 (<100) pg/mL Total Protein 6.9 (6.5-8.0) g/dL Albumin 3.9 (3.5-5.0) g/dL Discharge Plan Discharge Clinical Impression: Leg pain Patient Disposition: Home, Self-Care Instructions: Leg Pain (ED), Leg Cramps (ED) Additional Instructions: 1. Reanudar todos los medicamentos caseros seg?n lo prescrito. 2. Recomiende que tome medicamentos para el dolor cuando melendez nivel de dolor est? en 4-01/31 en lugar de esperar hasta que melendez dolor est? en 05/03. 3. Dimitris un seguimiento con melendez proveedor de atenci?n primaria el lunes por la ma?jennie llamando a la oficina y programando kirstin jair para kirstin reevaluaci?n. Regrese a la zack de emergencias si los s?ntomas empeoran. Prescriptions: No Action acetaminophen [8 Hour Pain Reliever] 650 mg tablet extended release 1,300 mg PO Q8H PRN (Reason: fever or pain) Qty: 180 6RF amantadine HCl 100 mg tablet 100 mg PO BID Qty: 60 0RF (DME) shower seat large See Rx Instructions .Route .MEDSUPPLY Qty: 1 0RF Rx Instructions: As directed amitriptyline 100 mg tablet 100 mg PO BEDTIME Qty: 30 6RF lisinopril 5 mg tablet 5 mg PO DAILY 90 Days Qty: 90 2RF tizanidine 4 mg tablet 4 mg PO TID PRN (Reason: muscle spasticity) 30 Days Qty: 90 3RF Xarelto 20 mg tablet 20 mg PO DAILY Qty: 30 6RF sennosides [Jaimee-christian] 8.6 mg tablet 17.2 mg PO BID PRN (Reason: constipation) Qty: 120 4RF docusate sodium 100 mg capsule 100 mg PO BID Qty: 60 3RF omeprazole 40 mg capsule,delayed release(DR/EC) 40 mg PO DAILY Qty: 30 3RF hydrochlorothiazide 25 mg tablet 25 mg PO DAILY 90 Days Qty: 90 3RF albuterol sulfate 90 mcg/actuation HFA aerosol inhaler 2 puff inhalation Q6-8H 30 Days Qty: 6.7 6RF benztropine 0.5 mg tablet 0.5 mg PO BID Qty: 60 2RF calcium citrate-vitamin D3 315 mg-6.25 mcg (250 unit) tablet 2 tab PO BID Qty: 120 12RF oxycodone-acetaminophen [Percocet] 5-325 mg tablet 1 tab PO Q8H PRN (Reason: pain) 30 Days Qty: 90 0RF atorvastatin 40 mg tablet 40 mg PO BEDTIME 90 Days Qty: 90 3RF meclizine 25 mg tablet 25 mg PO TID 90 Days Qty: 270 1RF clonazepam 0.5 mg tablet 0.5 mg PO DAILY 0RF prazosin 2 mg capsule 2 mg PO DAILY 0RF zolpidem 5 mg tablet 0.5 mg PO BEDTIME 0RF melatonin 5 mg tablet 5 mg PO BEDTIME 0RF donepezil 5 mg tablet 10 mg PO DAILY 0RF Referrals: Jennie Webb MD [Primary Care Provider] - 2 days Print Language: Pashto
[2021-11-25 22:21] VITALS: RESP 22
[2021-11-25] MEDS: HYDROmorphone HCl 0.5 MG/0.5 ML SYRINGE 0.1 MG IVPUSH (22:21)
[2021-11-25] MEDS: Acetaminophen 325 MG TABLET 975 MG PO (22:21)
[2021-11-25 22:30] VITALS: BP 126/60; PULSE 66; RESP 18; TEMP 36.7; O2SAT 97
--- NOTE | 2021-11-25 22:34 | PC.NURSE ---
PT requested that we access port-a-cath to obtain IV access. This RN able to obtain IV access with port-a-cath using sterile techniques. PT received pain meds through port-a-cath. PT stated that pain decreased. PT waiting to receive US imaging of groin.
[2021-11-25 23:40] LABS: B Type Natriuretic Peptide 27 pg/mL (<100)
[2021-11-25 23:51] VITALS: BP 120/53; PULSE 65; RESP 10; O2SAT 98
[2021-11-26] MEDS: Heparin Sodium,Porcine Flush 50 UNITS, 0.9 % Sodium Chloride Flush 5 ML IVFLUSH (01:24)
== END 2021-11-26 01:44 | disposition home or self-care (01) ==
PROVIDERS: Emergency Medicine Emergency Medical Services; Emergency Provider Student in an Organized Health Care Education/Training Program; PCP Internal Medicine
DX: R06.02 Shortness of breath (principal); M79.605 Pain in left leg; M79.604 Pain in right leg; M25.552 Pain in left hip; R53.1 Weakness; Z86.718 Personal history of other venous thrombosis and embolism; Z79.01 Long term (current) use of anticoagulants; Z79.899 Other long term (current) drug therapy; Z87.891 Personal history of nicotine dependence
CPT/HCPCS: 36415; 71045; 73502; 80048; 80076; 83880; 85025; 93005; 96374; 99284; J1170; J1642

== ENCOUNTER 2022-01-18 09:13 | Outpatient (REF) | payer OTHER, SELFPAY | END 2022-01-18 09:14 | disposition home or self-care (01) | LOC: HO.LAB 09:13 | PROVIDERS: PCP Internal Medicine; Visit Provider Internal Medicine | DX: Z13.89 Encounter for screening for other disorder (principal) ==

== ENCOUNTER 2022-01-24 07:55 | Outpatient (REF) | payer OTHER, SELFPAY ==
[2022-01-24 08:13] LABS: MANUAL DIFF FLAG NO
[2022-01-24 08:20] LABS: Basophils Absolute Auto 0.1 X10*3/uL (0.0-0.2); Basophils Percent Auto 0.6 % (0-2); Eosinophils Absolute Auto 0.2 X10*3/uL (0.0-0.4); Eosinophils Percent Auto 2.1 % (0-4); Hemoglobin 12.8 g/dl (12.0-16.0); Imm Gran Abs Auto 0.02 X10*3/uL (0.00-0.03); Imm Gran Pct Auto 0.3 % (0.0-0.4); Lymphocytes Absolute Auto 2.7 X10*3/uL (1.2-4.9); Lymphocytes Percent Auto 33.8 % (20-40); Mean Corpuscular HGB Conc 34.6 g/dl (31.0-35.0); Mean Corpuscular Hemoglobin 28.6 pg (27.0-33.0); Mean Corpuscular Volume 82.6 fL (80.0-98.0); Monocytes Absolute Auto 0.6 X10*3/uL (0.1-1.2); Monocytes Percent Auto 6.9 % (2-11); Neutrophils Absolute Auto 4.5 x10*3/uL (2.0-8.3); Neutrophils Percent Auto 56.3 % (45-73); Platelet Count 195 X10*3/uL (160-400); Red Blood Count 4.48 X10*6/uL (4.20-5.50); Red Cell Distribution Width 13.7 % (11.0-16.0)
[2022-01-24 08:44] LABS: Alanine Aminotransferase 21 U/L (0-31); Alkaline Phosphatase 67 U/L (39-117); Anion Gap 12 (12-20); Aspartate Amino Transferase 16 U/L (5-31); Bilirubin Total 0.5 mg/dL (0.0-1.0); Blood Urea Nitrogen 22 mg/dL (9-16); Calcium 9.4 mg/dL (8.4-10.2); Carbon Dioxide 30 mmol/L (22-29); Chloride 102 mmol/L (96-108); Cholesterol 152 mg/dL; Estimated Glomerular Filt Rate 58; Glucose Fasting 89 mg/dL (60-99); HDL Cholesterol 62 mg/dL; Iron 53 mcg/dL (30-160); LDL Cholesterol Calculated 82 mg/dl; Percent Iron Saturation 17 % (15-50); Potassium 3.6 mmol/L (3.3-5.1); Sodium 140 mmol/L (135-145); Total Iron Binding Capacity 316 mcg/dL (228-428); Triglycerides 42 mg/dL; Unsaturated Iron Binding 263 ug/dL
[2022-01-30 14:41] LABS: Vitamin D 25-OH, D2 <4 ng/mL; Vitamin D 25-OH, D3 32 ng/mL; Vitamin D 25-OH, Total 32 ng/mL (30-100)
== END 2022-01-24 07:56 | disposition home or self-care (01) ==
LOC: HO.LAB 07:55
PROVIDERS: PCP Internal Medicine; Visit Provider Internal Medicine
DX: D64.9 Anemia, unspecified (principal); E55.9 Vitamin D deficiency, unspecified; R07.2 Precordial pain; E78.5 Hyperlipidemia, unspecified
CPT/HCPCS: 36415; 80053; 80061; 82306; 83540; 85025

== ENCOUNTER 2023-01-03 12:47 | Outpatient (REF) | payer OTHER, SELFPAY ==
--- NOTE | ~2023-01-03 | FL_ITS ---
EXAMINATION: FL FLUOROSCOPY CLINICAL INFORMATION: Port check. No blood return. COMPARISON: None available. TECHNIQUE: Port check. FINDINGS: Informed consent was obtained from the patient prior to the procedure. During this process, the procedure and potential alternatives were explained, along with the intended outcome and benefits. The risks of the procedure, as well as the risk of not doing the procedure, were discussed. The patient was given the opportunity to ask questions regarding the procedure and appeared competent to make medical decisions. A signed consent form which documents this discussion was placed in the medical record. Using sterile technique a Hubner needle was placed into the port reservoir. No blood could be aspirated. The port catheter however does flush freely with the catheter being patent. I cannot definitely see a fibrin sheath present but with the above findings there likely is one acting likely a check valve. The port was noted to be very movable at time of exam. After the examination, the port was flushed with heparin lock solution of 100 units heparin per milliliter. FLUOROSCOPY TIME: 0.4 minutes DOSE AREA PRODUCT: 1.282 Gy-cm2 (escudreo-centimeter squared) FL/FL fluoroscopy <1hr IMPRESSION: Port reservoir and catheter are patent but with inability to aspirate blood. This is likely related to fibrin sheath.
== END 2023-01-03 12:48 | disposition home or self-care (01) ==
LOC: HO.XRAY 12:47
PROVIDERS: Visit Provider Internal Medicine
DX: Z95.828 Presence of other vascular implants and grafts (principal)
CPT/HCPCS: 76000

== ENCOUNTER 2023-01-11 11:25 | Outpatient (REF) | payer OTHER, SELFPAY ==
[2023-01-11 12:50] LABS: MANUAL DIFF FLAG NO
[2023-01-11 12:59] LABS: Basophils Absolute Auto 0.1 X10*3/uL (0.0-0.2); Basophils Percent Auto 0.7 % (0-2); Eosinophils Absolute Auto 0.2 X10*3/uL (0.0-0.4); Eosinophils Percent Auto 2.8 % (0-4); Hematocrit 33.9 % (37.0-47.0); Hemoglobin 11.8 g/dl (12.0-16.0); Imm Gran Abs Auto 0.04 X10*3/uL (0.00-0.03); Imm Gran Pct Auto 0.6 % (0.0-0.4); Lymphocytes Absolute Auto 1.7 X10*3/uL (1.2-4.9); Lymphocytes Percent Auto 24.4 % (20-40); Mean Corpuscular HGB Conc 34.8 g/dl (31.0-35.0); Mean Corpuscular Hemoglobin 27.7 pg (27.0-33.0); Mean Corpuscular Volume 79.6 fL (80.0-98.0); Mean Platelet Volume 11.3 fL (9.4-12.3); Monocytes Absolute Auto 0.6 X10*3/uL (0.1-1.2); Monocytes Percent Auto 8.9 % (2-11); Neutrophils Absolute Auto 4.3 x10*3/uL (2.0-8.3); Neutrophils Percent Auto 62.6 % (45-73); Platelet Count 155 X10*3/uL (160-400); Red Blood Count 4.26 X10*6/uL (4.20-5.50); Red Cell Distribution Width 14.5 % (11.0-16.0); White Blood Count 6.9 X10*3/uL (4.8-10.8)
== END 2023-01-11 11:26 | disposition home or self-care (01) ==
LOC: HO.LAB 11:25
PROVIDERS: Absent Provider Internal Medicine; PCP Internal Medicine; Visit Provider Internal Medicine
DX: I82.409 Acute embolism and thrombosis of unspecified deep veins of unspecified lower extremity (principal)
CPT/HCPCS: 36415; 85025

== ENCOUNTER 2023-06-08 13:03 | Emergency (ER) | payer OTHER, SELFPAY ==
--- NOTE | ~2023-06-08 | XR_ITS ---
EXAMINATION: XR HUMERUS, LEFT CLINICAL INFORMATION: hit the lower humerus on door. Question fracture. COMPARISON: None available. TECHNIQUE: AP and lateral views of the left humerus. FINDINGS: No radiographic evidence of acute fracture or malalignment of the humerus. Articulation at the shoulder and elbow joint is maintained, evaluation limited. No unexpected radiopaque densities. XR/XR humerus LT IMPRESSION: No radiographic evidence of acute fracture.
--- NOTE | ~2023-06-08 | US_ITS ---
EXAMINATION: US VENOUS WITH DOPPLER UPPER EXTREMITY, LEFT CLINICAL INFORMATION: Left arm swelling. COMPARISON: None available. TECHNIQUE: Ultrasound of the upper extremity is performed using compression sonography and color and pulse Doppler flow with assessment of augmentation of flow. There is also imaging and Doppler assessment of the jugular and subclavian veins. Spectral analysis with color-flow imaging is performed. FINDINGS: Respiratory variation, normal compression, and augmented flow are noted throughout the upper extremity including the axillary, brachial, cubital, and radial and ulnar veins. There is normal flow in the internal jugular and subclavian veins. There is no visible deep or superficial thrombophlebitis. If the patient's symptoms progress, a followup ultrasound in 5 -7 days might be of value to exclude proximal propagation from a nonvisualized distal arm vein. Targeted sonography was performed at the site of concern in the left elbow there is a corresponding hyperechoic focus measuring 0.6 x 0.5 x 0.4 cm. No internal color Doppler flow. The possibility of a hematoma may be considered in the setting of trauma. US/US venous duplex UE LT IMPRESSION: No DVT demonstrated in the left upper extremity. Hyperechoic focus corresponding to the site of pain measuring 0.6 x 0.5 x 0.4 cm. This is a nonspecific finding. A hematoma could have this appearance in the appropriate clinical setting.
[2023-06-08 13:18] VITALS: BP 136/73; PULSE 86; RESP 19; TEMP 36.2; O2SAT 95; BMI 30.6
--- NOTE | 2023-06-08 13:21 | ED_ITS ---
HPI - General Adult General Chief complaint: Extremity Injury, Lower Stated complaint: feels a ball on under arm? Time Seen by Provider: 06/08/23 16:19 Source: patient Mode of arrival: ambulatory Limitations: no limitations History of Present Illness HPI narrative: 62 yold female presents to the ED for Left lower humerus ecchhymosis and pain after hitting arm on the door. patient states not having bruising elsewhere on the body and denies any other trauma. Patient states no chest pain or shortness of breath. Patient states no vomiting blood, rectal bleeding, vomiting blood, or coughing up blood. Related Data Home Medications Medication Instructions Recorded Confirmed prazosin 2 mg capsule 2 mg PO DAILY 01/18/21 08/07/22 zolpidem 5 mg tablet 0.5 mg PO BEDTIME 01/18/21 08/07/22 Previous Rx's Medication Instructions Recorded amantadine HCl 100 mg tablet 100 mg PO BID #60 tabs 12/02/20 shower seat #1 ea 12/07/20 acetaminophen 650 mg 1,300 mg (2 x 650 mg) PO Q8H PRN 12/07/21 tablet,extended release (8 Hour fever or pain #180 tabs Pain Reliever) lactulose 10 gram/15 mL oral 10 g (15 mL) PO BEDTIME PRN 12/08/21 solution constipation 30 days #473 mL clonazepam 0.5 mg tablet 0.5 mg PO DAILY 30 days #30 tabs 01/24/22 cromolyn 4 % eye drops 1 drp ophthalmic (eye) 6XD 7 days 08/07/22 #10 mL albuterol sulfate 90 mcg/actuation 2 puff inhalation Q6-8H 30 days 08/14/22 aerosol inhaler #6.7 grams hydrochlorothiazide 25 mg tablet 25 mg PO DAILY 90 days #90 tabs 08/14/22 walker #1 ea 08/22/22 tizanidine 4 mg tablet 4 mg PO TID PRN muscle spasticity 10/10/22 30 days #90 tabs atorvastatin 40 mg tablet 40 mg PO BEDTIME 90 days #90 tabs 10/26/22 pantoprazole 40 mg tablet,delayed 40 mg PO DAILY 90 days #90 tabs 10/31/22 release rivaroxaban 20 mg tablet (Xarelto) 20 mg PO DAILY #30 tabs 12/05/22 calcium citrate 315 mg 2 tab PO BID #120 tabs 12/27/22 calcium-vitamin D3 6.25 mcg (250 unit) tablet docusate sodium 100 mg capsule 100 mg PO BID #60 caps 02/01/23 amitriptyline 100 mg tablet 100 mg PO BEDTIME #30 tabs 03/20/23 benztropine 0.5 mg tablet 0.5 mg PO BID #60 tabs 04/09/23 sennosides 8.6 mg tablet (Jaimee-christian) 17.2 mg (2 x 8.6 mg) PO BID PRN 04/17/23 constipation #120 tabs donepezil 5 mg tablet 10 mg (2 x 5 mg) PO DAILY 90 days 04/30/23 #180 tabs lisinopril 5 mg tablet 5 mg PO DAILY 90 days #90 tabs 05/31/23 oxycodone-acetaminophen 5 mg-325 1 tab PO Q8H PRN pain 30 days #90 05/31/23 mg tablet (Percocet) tabs Allergies Allergy/AdvReac Type Severity Reaction Status Date / Time latex [LATEX] Allergy Intermediate SWELLING Verified 08/07/22 15:53 nabumetone Allergy Intermediate pruritus Verified 08/07/22 15:53 aspirin [ASA] Allergy Mild BLEEDING, Verified 08/07/22 15:53 lip edema lidocaine [LIDOCAINE] Allergy Mild SWELLING,ITCHING, Verified 08/07/22 15:53 pruritus Review of Systems 2 Review of Systems: left humerus pain Yes all other systems are reviewed and are negative PMFSH Past Medical History Medical History BMI 29.0-29.9,adult CAD (coronary artery disease) Cholecystectomy planned Chronic back pain Constipation by delayed colonic transit DVT (deep vein thrombosis) in Essential hypertension GERD (gastroesophageal reflux disease) History of DVT (deep vein thrombosis) Hyperlipidemia 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 Mother Lung cancer Hypertension Social History Social History Household Members: Family Housing: House Alcohol intake: never Patient Tobacco Use Status: Former Tobacco user Tobacco use type: Cigarette Smoked in Last 30 Days: No e-Cigarette/Vaping Use: Never Used Second Hand Smoke Exposure: No Use of substances other than those prescribed or required for medical reasons: No Advance Directives: No Advance Directives Information Provided: Yes service: No Current occupational status: disabled Cognitive needs: Yes Hearing needs: No Vision needs: No Physical Exam ED Vital Signs: Vital Signs - 24 hr 06/08/23 13:18 Temperature 97.2 F Pulse Rate 86 Respiratory Rate 19 Blood Pressure 136/73 Pulse Oximetry 95 Oxygen Delivery Method Room Air BMI result Body Mass Index 30.6 Const General: cooperative, healthy appearing, comfortable, no acute distress, well developed, alert, awake and Physically active Orientation/consciousness: oriented to person, oriented to place, oriented to time and patient oriented x3 HENMT Head: Yes normal to inspection, Yes No palpable skull fracture present, Yes normocephalic, Yes atraumatic and No abrasion Eyes General: appearance normal, both eyes and all related structures Neck Neck: Yes normal visual inspection, Yes full ROM, Yes no lymphadenopathy, Yes no meningeal signs, Yes trachea midline, Yes supple, No anterior neck swelling and No tender Chest Chest palpation & inspection: normal inspection of the chest and normal palpation of entire chest wall Resp Effort & Inspection: normal respiratory effort and able to speak in complete sentences Auscultation: clear to auscultation bilaterally Cardio Jugular venous distension: no JVD Heart sounds: S1 normal heart sound present and S2 normal heart sound present GI Inspection: Yes normal to inspection and No abdominal wall ecchymosis Palpation (GI): Soft to palpation, not firm, nontender, no guarding and not rigid General: No CVA tenderness and Yes no CVA tenderness Back/Spine/Pelvis Back: no CVA tenderness, No CVA tenderness and No back tenderness Skin General skin exam: no rashes or lesions noted, elasticity normal and turgor normal Neuro General: oriented to person, oriented to place, oriented to time, patient oriented x3, gait normal, tone normal, moves all extremities, Normal light touch and pain sensation, no meningeal signs, no focal motor deficits, CN's II-XI intact bilaterally and normal sensation to monofilament Extrem General: Yes normal to inspection Shoulder/upper arm images: 2 1. positive for ecchymosis and tenderness on palpation. Negative for crepitus or deformity. Negative for erythema in motor/ neuro/vascular exam intact of extremity Psych Appearance: grossly normal, well kempt and not disheveled Course Course Course Narrative: This is a rapid medical exam: Additional HPI, ROS, PE not included below will be deferred to primary provider. Patient is a 62-year-old Mosotho-speaking female with history of DVT, gastrectomy, CAD, HTN, GERD, idiopathic Parkinsonism, ITZ presenting to the emergency department with complaint of left upper arm pain after hitting it on the bathroom door one to two weeks ago. States she is currently anticoagulated with Xarelto. Reports increased pain and swelling to left upper arm. Reports the area gets warm and is painful. Patient noted to have ecchymosis to left upper arm with palpable cord. 2+ radial pulse. Plan: labs, ultrasound Medications Administered Discontinued Medications Generic Name Dose Route Start Last Admin Trade Name Freq PRN Reason Stop Dose Admin Acetaminophen 650 mg 06/08/23 13:27 06/08/23 13:32 Acetaminophen 325 Mg Tablet PO 06/08/23 13:28 650 mg ONCE ONE Administration Oxycodone HCl 5 mg 06/08/23 16:34 06/08/23 16:37 Oxycodone Hcl Immed Release 5 Mg Tablet PO 06/08/23 16:35 5 mg ONCE ONE Administration Medical Decision Making Medical Decision Making [facility] Narrative: 62 yold female presents to the ED left humerus ecchymosis and tenderness after hitting arm the door. patient deneis any other trauma. patient states no rectal bleeding, vomitting, coughing up blood, or any other trauma. Ultrasound negative for DVT. Xray negative for fracture. Diagnosis is contusion vs small hematoma. Differential Diagnosis Differential Diagnoses: The differential diagnosis associated with the presentation includes (COntusion, fracture, hematoma, dislocation) Admission/Observation Consideration of admission/observation: Escalation of care including admission/observation considered Independent Interpretation I performed an independent interpretation of an: Plain X-Ray and Ultrasound Radiology Impression Discussion of test interpretation with radiology: I have reviewed the radiologist's reading. Independent Historian Clinical information obtained from an independent historian. History obtained from or confirmed by: Other (Daugther) Discharge Plan Discharge Clinical Impression: Contusion, Hematoma Patient Disposition: Home, Self-Care Instructions: Hematoma (ED), Bone Bruise (ED) Additional Instructions: Recomiendo Ángel envolver alrededor de contusi?n/hematoma. Regrese al servicio de urgencias de inmediato si presenta cualquier aumento en el kevin?o del hematoma, hematomas, incapacidad para house mover helper las extremidades, calor, frialdad, enrojecimiento, dolor en el pecho, fiebre, escalofr?os, par?lisis, entumecimiento/hormigueo, o cualquier otro s?ntoma preocupante. Dimitris un seguimiento con el proveedor de atenci?n primaria. Contin?e tomando oxicodona en casa para aliviar el dolor. Prescriptions: No Action amantadine HCl 100 mg tablet 100 mg PO BID Qty: 60 0RF (DME) shower seat large See Rx Instructions .Route .MEDSUPPLY Qty: 1 0RF Rx Instructions: As directed acetaminophen [8 Hour Pain Reliever] 650 mg tablet extended release 1,300 mg PO Q8H PRN (Reason: fever or pain) Qty: 180 6RF lactulose 10 gram/15 mL solution 10 g PO BEDTIME PRN (Reason: constipation) 30 Days Qty: 473 0RF clonazepam 0.5 mg tablet 0.5 mg PO DAILY 30 Days Qty: 30 0RF albuterol sulfate 90 mcg/actuation HFA aerosol inhaler 2 puff inhalation Q6-8H 30 Days Qty: 6.7 6RF hydrochlorothiazide 25 mg tablet 25 mg PO DAILY 90 Days Qty: 90 3RF (DME) walker Misc See Rx Instructions .Route Qty: 1 0RF Rx Instructions: As directed tizanidine 4 mg tablet 4 mg PO TID PRN (Reason: muscle spasticity) 30 Days Qty: 90 3RF atorvastatin 40 mg tablet 40 mg PO BEDTIME 90 Days Qty: 90 3RF pantoprazole 40 mg tablet,delayed release (DR/EC) 40 mg PO DAILY 90 Days Qty: 90 1RF Xarelto 20 mg tablet 20 mg PO DAILY Qty: 30 6RF calcium citrate-vitamin D3 315 mg-6.25 mcg (250 unit) tablet 2 tab PO BID Qty: 120 12RF docusate sodium 100 mg capsule 100 mg PO BID Qty: 60 3RF amitriptyline 100 mg tablet 100 mg PO BEDTIME Qty: 30 6RF benztropine 0.5 mg tablet 0.5 mg PO BID Qty: 60 2RF sennosides [Jaimee-christian] 8.6 mg tablet 17.2 mg PO BID PRN (Reason: constipation) Qty: 120 4RF donepezil 5 mg tablet 10 mg PO DAILY 90 Days Qty: 180 0RF lisinopril 5 mg tablet 5 mg PO DAILY 90 Days Qty: 90 2RF oxycodone-acetaminophen [Percocet] 5-325 mg tablet 1 tab PO Q8H PRN (Reason: pain) 30 Days Qty: 90 0RF cromolyn 4 % drops 1 drp ophthalmic (eye) 6XD 7 Days Qty: 10 0RF prazosin 2 mg capsule 2 mg PO DAILY zolpidem 5 mg tablet 0.5 mg PO BEDTIME Interventions: ED Discharge Assessment Last Done: 06/08/23 19:00 Discharge Date/Time: 06/08/23 19:01 Print Language: Mosotho
[2023-06-08] MEDS: Acetaminophen 325 MG TABLET 650 MG PO (13:32)
--- OUTSIDE RECORDS SUMMARY | 2023-06-08 14:50 | XMS_ITS | Continuity of Care Document ---
Author Name Unknown Organization [facility] Address [address] [facility], [address], [address] [place] [id number] Care Team Providers Care Needle Process [employer] Supervisor Name Role Phone Not on Staff, PCP Primary Care Physician Unavail able Encounter [facility] Date(s): 05/01/23 - 05/31/23 [facility] [address] [place], [address], [address] [place] [id number] Patient Care team information Care Team Personnel Name: Not on Staff, PCP Position: [facility] Physician (General Medicine) Member Role: PCP
[2023-06-08] MEDS: oxyCODONE HCl Immed Release 5 MG TABLET PO (16:37)
--- NOTE | 2023-06-08 18:38 | PC.NURSE ---
per Pa, no labs needed
== END 2023-06-08 19:01 | disposition home or self-care (01) ==
PROVIDERS: Emergency Provider Emergency Medicine Emergency Medical Services; PCP Internal Medicine
DX: S40.022A Contusion of left upper arm, initial encounter (principal); W22.8XXA Striking against or struck by other objects, initial encounter; I10 Essential (primary) hypertension; Y93.9 Activity, unspecified; Y92.9 Unspecified place or not applicable; Y99.9 Unspecified external cause status; Z98.84 Bariatric surgery status
CPT/HCPCS: 73060; 93971; 99284

== ENCOUNTER 2023-11-07 14:43 | Outpatient (AMB) | payer OTHER, SELFPAY ==
[2023-11-07 14:57] VITALS: BP 136/82; BMI 34.1
--- NOTE | 2023-11-07 14:57 | A.OFFPC_ITS ---
Vital Signs 11/07/23 14:57 Height 5 ft 5 in Weight 205 lb BMI 34.1 BP 136/82 Blood Pressure Location Rt brachial Position Sitting Intake Visit Reasons: Rash under L breast-burning sensation Intake Note: Patient here for left side head pain, bilateral knee pain [place] Required: No Accompanied by: Daughter Allergies latex [LATEX] Allergy (Intermediate, Verified 11/07/23 15:11) SWELLING nabumetone Allergy (Intermediate, Verified 11/07/23 15:11) pruritus aspirin [ASA] Allergy (Mild, Verified 11/07/23 15:11) BLEEDING, lip edema lidocaine [LIDOCAINE] Allergy (Mild, Verified 11/07/23 15:11) SWELLING,ITCHING, pruritus carbidopa-levodopa Allergy (Severe, Uncoded 11/08/23 07:50) tracheal swelling Medication List - Last Reconciled 11/07/23 by Jennie Hahn MD acetaminophen ER (8 Hour Pain Reliever) 1,300 mg (2 x 650 mg) PO Q8H PRN albuterol sulfate 90 mcg/actuation 2 puffs inhalation Q6-8H 30 days amantadine HCl 100 mg PO BID amitriptyline 100 mg PO BEDTIME atorvastatin 40 mg PO BEDTIME 90 days benztropine 0.5 mg PO BID calcium citrate-vitamin D3 315 mg-6.25 mcg (250 unit) 2 tabs PO BID clonazepam 0.5 mg PO DAILY 30 days cromolyn 4% 1 drp ophthalmic (eye) 6XD 7 days docusate sodium 100 mg PO BID donepezil 10 mg (2 x 5 mg) PO DAILY 90 days hydrochlorothiazide 25 mg PO DAILY 90 days lactulose 10 grams (15 mL) PO BEDTIME PRN 30 days lisinopril 5 mg PO DAILY 90 days oxycodone-acetaminophen 5-325 mg (Percocet) 1 tab PO Q8H PRN 30 days pantoprazole 40 mg PO DAILY 90 days prazosin 2 mg PO DAILY rivaroxaban (Xarelto) 20 mg PO DAILY sennosides (Jaimee-christian) 17.2 mg (2 x 8.6 mg) PO BID PRN [shower seat As directed] tizanidine 4 mg PO TID PRN 30 days walker As directed zolpidem 0.5 mg PO BEDTIME Tobacco use date assessed: 11/07/23 Fall risk assessment: 2 + Falls in past year Last assessed Fall Risk: 11/07/23 Dental Screening Dental Screen Date: 11/07/23 Did you have a dental visit in the last 12 months?: No Did you have a dental problem in the last 6 months where you did not have access to dental care?: No Was dental information given to patient?: Patient has dentist HPI HPI Comments History of Present Illness Details This is a 63-year-old female with hypertension, pure hypercholesterolemia, constipation and idiopathic parkinsonism comes today complaining of bilateral knee pain that has been present for few weeks. Currently in a wheelchair due to unsteady gait. Blood pressure stable. Cholesterol well controlled. Constipation stable with medications as needed. Has idiopathic parkinsonism with unsteady gait and will see Neurology soon. Had a reaction with carbidopa-levodopa of tracheal swelling and shortness of breath and is not able to use it. On amantadine for parkinsonism. She is accompanied today by printing plate maker which is the daughter. [facility] Medical History (Updated 11/07/23 @ 15:17 by Jennie Hahn MD) Pure hypercholesterolemia Postmenopausal Intestinal malabsorption following gastrectomy BMI 29.0-29.9,adult Overweight (BMI 25.0-29.9) Chronic back pain CAD (coronary artery disease) Hyperlipidemia DVT (deep vein thrombosis) in Cholecystectomy planned Stroke History of DVT (deep vein thrombosis) GERD (gastroesophageal reflux disease) Essential hypertension Idiopathic Parkinsonism ITZ (obstructive sleep apnea) Nausea Constipation by delayed colonic transit Muscle spasm Surgical History S/P laparoscopic sleeve gastrectomy S/P laparoscopic sleeve gastrectomy S/P endoscopy S/P colonoscopy S/P hysterectomy with oophorectomy (Unknown) S/P appendectomy Family History Father No problems noted. Mother Lung cancer Hypertension Social History Household Members: Family Housing: House Alcohol intake: never Patient Tobacco Use Status: Former Tobacco user Tobacco use type: Cigarette e-Cigarette/Vaping Use: Never Used Second Hand Smoke Exposure: No service: No Current occupational status: disabled Cognitive needs: Yes Hearing needs: No Vision needs: No Questionnaire PHQ-9 Over the last 2 weeks, how often have you been bothered by any of the following problems? 1. Little interest or pleasure in doing things: not at all 2. Feeling down, depressed, or hopeless: not at all 3. Trouble falling or staying asleep, or sleeping too much: not at all 4. Feeling tired or having little energy: not at all 5. Poor appetite or overeating: not at all 6. Feeling bad about yourself - or that you are a failure or have let yourself or your family down: not at all 7. Trouble concentrating on things, such as reading the newspaper or watching television: not at all 8. Moving or speaking so slowly that other people could have noticed. Or the opposite - being so fidgety or restless that you have been moving around a lot more than usual: not at all 9. Thoughts that you would be better off or of hurting yourself in some way: not at all Total score: 0 Depression Screening Interpretation: Negative Depression Screening Done: Yes 62746 - PHQ-9 Billing: Yes Source: Developed by Drs. Ahsan Howard, Delaney Morales, Cedrick Mcknight and colleagues, with an educational kobe from [employer]. Thrive Questionnaire Date Thrive assessed: 11/07/23 I am a: Patient What is your living situation today?: I have a steady place to live Within the past 12 months, did the food you bought not last and you didn't have the money to get more?: Never true Within the past 12 months, did you worry whether your food would run out before you got money to buy more?: Never true Do you have trouble paying for medicines?: No Do you have trouble getting transportation to medical appointments?: No Do you have trouble paying your heating and electricity bill?: No Do you have trouble taking care of your child, family member or friend?: No Do you have trouble with day-to-day activities such as bathing, preparing meals, shopping, managing finances, etc.?: No Are you currently unemployed and looking for a job?: No Are you interested in more education?: No Please select the resources that you would like help with: None Currently or been in a relationship where the following occur: no concerns reported THRIVE Score: 0 AUDIT C Alcohol Use Questionnaire (AUDIT-C) 1. How often do you have a drink containing alcohol?: Never Total Score: 0 KANCHAN-7 AMB Questionnaire KANCHAN-7 Date KANCHAN - 7 assessed: 11/07/23 Feeling nervous, anxious, or on edge: 0 = Not at all Not being able to stop or control worryin = Not at all Worrying too much about different things: 0 = Not at all Trouble relaxin = Not at all Being so restless that it is hard to sit still: 0 = Not at all Becoming easily annoyed or irritable: 0 = Not at all Feeling afraid as if something awful might happen: 0 = Not at all Total KANCHAN-7 score (0-4 normal; 5-9 mild; 10-14 moderate; 15-21 severe): 0 Source: Developed by Drs. Ahsan Howard, Delaney Morales, Cedrick Mcknight and colleagues, with an educational kobe from [employer]. KANCHAN-7 Assessment Billing KANCHAN-7 Assessment Tool: KANCHAN-7 Assessment 48218 Review of Systems Const All systems reviewed & are unremarkable except as noted in HPI and below Eyes Reports no additional complaints, Denies change in vision and Denies other visual disturbances Card Denies chest pain at rest, Denies chest pain with activity, Denies edema, Denies irregular heart rhythm, Denies claudication, Denies dyspnea, Denies dyspnea on exertion, Denies orthopnea, Denies paroxysmal nocturnal dyspnea and Denies slow heart rate Resp Denies cough, Denies dyspnea and Denies dyspnea on exertion GI Denies abdominal pain, Denies change in bowel habits, Denies excessive flatus, Denies nausea and Denies vomiting Denies urinary incontinence, Denies urinary hesitancy and Denies urinary urgency Musc Denies abnormal gait, Denies atrophy, Denies deformity, Reports arthralgias and Denies limited range of motion Skin/Breast Denies bleeding lesions, Denies changing lesions and Denies rash Neuro Denies abnormal gait, Denies behavioral changes and Denies lack of coordination Psych Denies behavioral changes Physical exam (Primary Care) Vital Signs: Last Vital Signs BP 136/82 11/07/23 14:57 BMI result Body Mass Index 34.1 Tobacco/Smoking Status: Tobacco use Status Tobacco use date assessed 11/07/23 11/07/23 15:06 Patient Tobacco Use Status Former Tobacco user 11/07/23 15:00 Tobacco use type Cigarette 11/07/23 15:00 e-Cigarette/Vaping Use Never Used 11/07/23 15:00 PHQ-9: PHQ-9 Score PHQ-9: Total score 0 11/07/23 15:14 Depression Screening Interpretation: Negative Thrive Assessment: Date of Thrive Assessment Date Thrive assessed 11/07/23 11/07/23 15:06 Currently or been in a relationship where the following occur: no concerns reported Const Limitations: wheelchair Eyes General: appearance normal, both eyes and all related structures Eyelids: Yes eyelids normal Conjunctivae: conjunctivae normal Neck Neck: Yes normal visual inspection and Yes supple Resp Effort & Inspection: normal respiratory effort Auscultation: clear to auscultation bilaterally Cardio Jugular venous distension: no JVD Rate: regular rate Rhythm: regular rhythm Heart sounds: S1 normal heart sound present and S2 normal heart sound present Extrem General: Yes full ROM Assessment and Plan Assessment & Plan (1) Essential hypertension: Code(s): I10 - Essential (primary) hypertension Plan: Continue hydrochlorothiazide and lisinopril. Blood pressure goal is equal or less than 130/80. (2) Idiopathic Parkinsonism: Code(s): G20 - Parkinson's disease Plan: Continue amantadine. Follow-up with Neurology. (3) Constipation by delayed colonic transit: Code(s): K59.01 - Slow transit constipation Plan: Continue senna and lactulose as needed. (4) Pure hypercholesterolemia: Code(s): E78.00 - Pure hypercholesterolemia, unspecified Plan: Continue statins. Orders: Orders XR knee LT 2V 11/07/23 M25.562 - Pain in left knee XR knee RT 2V 11/07/23 M25.561 - Pain in right knee Referrals Orthopedics Referral M25.561 - Pain in right knee, M25.562 - Pain in left knee Coding Level of Care Code Est Pt Level 4 (03252) Diagnoses Essential hypertension I10 Idiopathic Parkinsonism G20 Constipation by delayed colonic transit K59.01 Pure hypercholesterolemia E78.00 Additional Codes KANCHAN-7 Assessment Billing - KANCHAN-7 Assessment Tool: KANCHAN-7 Assessment 57681 ([id number]) Time Spent (min) 22
== END 2023-11-07 15:24 | disposition home or self-care (01) ==
PROVIDERS: PCP Internal Medicine; Visit Provider Internal Medicine
DX: I10 Essential (primary) hypertension (principal); G20.C Parkinsonism, unspecified; K59.01 Slow transit constipation; E78.00 Pure hypercholesterolemia, unspecified
CPT/HCPCS: 99214

== ENCOUNTER 2023-11-27 03:05 | Emergency (ER) | payer OTHER, SELFPAY ==
--- NOTE | ~2023-11-27 | CT_ITS ---
EXAMINATION: CT ABDOMEN AND PELVIS WITHOUT CONTRAST CLINICAL INFORMATION: Abdominal pain with vomiting COMPARISON: 06/22/2021 TECHNIQUE: Multidetector volumetric imaging was performed from the superior aspect of the liver through the pubic symphysis. Sagittal and coronal reformatted images were obtained on the technologist's workstation. This CT examination was performed using dose optimization techniques as appropriate, variously including the following: *Automated exposure control *Adjustment of mA and/or kV according to patient size (this includes techniques or standardized protocols for targeted exams where dose is matched to indication/reason for exam; i.e. extremities or head) *Use of iterative reconstruction technique DLP: 680 mGy-cm FINDINGS: LUNG BASES: Trace bibasilar atelectasis suspected. Cardiomegaly noted along with small pericardial effusion. LIVER, GALLBLADDER, AND BILIARY TREE: The liver is normal in size, shape, and attenuation. No focal hepatic lesion or biliary ductal dilatation is identified on this noncontrast exam. Patient is status post cholecystectomy. PANCREAS: Moderate fatty atrophy. SPLEEN: Unremarkable. ADRENAL GLANDS: Unremarkable. KIDNEYS AND URETERS: No hydronephrosis or obstructing calculus bilaterally. BLADDER: Unremarkable. GASTROINTESTINAL TRACT: Clips are present along the stomach. Suture line is present in the small bowel in the central abdomen. No evidence of bowel obstruction. A few focal sites of mural prominence are noted in the colon such as in the ascending colon on coronal image 43, hepatic flexure on coronal image 36, and descending colon on coronal image 36; these could be due to incomplete distention or less likely neoplasm. No free fluid or free air is seen. ABDOMINAL WALL: Status post ventral hernia repair. LYMPH NODES: Normal. VASCULAR: Scattered atherosclerotic calcifications. PELVIC VISCERA: Patient is status post hysterectomy. OSSEOUS STRUCTURES: Degenerative changes are noted in the spine. CT/CT abdomen pelvis wo IV con IMPRESSION: 1. No acute findings identified in the abdomen/pelvis. 2. Few sites of focally thick-walled colon, suspected to be due to incomplete luminal distention. Correlation with recent or follow-up colonoscopy is advised to exclude the possibility of a mass at these locations. 3. Cardiomegaly and small pericardial effusion.
[2023-11-27 03:07] VITALS: BP 154/108; PULSE 85; RESP 20; TEMP 36.5; O2SAT 100; BMI 31.4
[2023-11-27 03:57] LABS: Basophils Percent Auto 0.4 % (0-2); Eosinophils Absolute Auto 0.1 X10*3/uL (0.0-0.4); Eosinophils Percent Auto 1.5 % (0-4); Hematocrit 35.2 % (37.0-47.0); Hemoglobin 12.2 g/dl (12.0-16.0); Imm Gran Abs Auto 0.02 X10*3/uL (0.00-0.03); Imm Gran Pct Auto 0.3 % (0.0-0.4); Lymphocytes Absolute Auto 2.3 X10*3/uL (1.2-4.9); Lymphocytes Percent Auto 30.2 % (20-40); MANUAL DIFF FLAG NO; Mean Corpuscular HGB Conc 34.7 g/dl (31.0-35.0); Mean Corpuscular Hemoglobin 26.1 pg (27.0-33.0); Mean Corpuscular Volume 75.2 fL (80.0-98.0); Mean Platelet Volume 10.2 fL (9.4-12.3); Monocytes Absolute Auto 0.5 X10*3/uL (0.1-1.2); Monocytes Percent Auto 7.2 % (2-11); Neutrophils Absolute Auto 4.6 x10*3/uL (2.0-8.3); Neutrophils Percent Auto 60.4 % (45-73); Platelet Count 214 X10*3/uL (160-400); Red Blood Count 4.68 X10*6/uL (4.20-5.50); Red Cell Distribution Width 14.7 % (11.0-16.0); White Blood Count 7.5 X10*3/uL (4.8-10.8)
--- NOTE | 2023-11-27 04:05 | ED_ITS ---
HPI - Abdominal Pain General Chief Complaint: Abdominal Pain Stated Complaint: Abd pain Time Seen by Provider: 11/27/23 04:05 Source: patient, family and program research specialist Mode of arrival: ambulatory Limitations: no limitations History of Present Illness HPI narrative: Came in for evaluation of nausea, vomiting, diarrhea and abdominal pain all started since yesterday. No recent travel, no recent use of antibiotic, no sick contacts, no history of eating bad foods, no fever, no chills.. Past surgical history is cholecystectomy. Last bowel movement was few hours ago and was diarrhea. Patient vomited several times yesterday. Related Data Home Medications Medication Instructions Recorded Confirmed prazosin 2 mg capsule 2 mg PO DAILY 01/18/21 11/07/23 zolpidem 5 mg tablet 0.5 mg PO BEDTIME 01/18/21 11/07/23 Previous Rx's Medication Instructions Recorded shower seat #1 ea 12/07/20 acetaminophen 650 mg 1,300 mg (2 x 650 mg) PO Q8H PRN 12/07/21 tablet,extended release (8 Hour fever or pain #180 tabs Pain Reliever) lactulose 10 gram/15 mL oral 10 g (15 mL) PO BEDTIME PRN 12/08/21 solution constipation 30 days #473 mL clonazepam 0.5 mg tablet 0.5 mg PO DAILY 30 days #30 tabs 01/24/22 cromolyn 4 % eye drops 1 drp ophthalmic (eye) 6XD 7 days 08/07/22 #10 mL albuterol sulfate 90 mcg/actuation 2 puff inhalation Q6-8H 30 days 08/14/22 aerosol inhaler #6.7 grams [place] #1 ea 08/22/22 calcium citrate 315 mg 2 tab PO BID #120 tabs 12/27/22 calcium-vitamin D3 6.25 mcg (250 unit) tablet lisinopril 5 mg tablet 5 mg PO DAILY 90 days #90 tabs 05/31/23 pantoprazole 40 mg tablet,delayed 40 mg PO DAILY 90 days #90 tabs 06/28/23 release amitriptyline 100 mg tablet 100 mg PO BEDTIME #30 tabs 07/27/23 atorvastatin 40 mg tablet 40 mg PO BEDTIME 90 days #90 tabs 07/27/23 rivaroxaban 20 mg tablet (Xarelto) 20 mg PO DAILY #30 tabs 07/27/23 hydrochlorothiazide 25 mg tablet 25 mg PO DAILY 90 days #90 tabs 08/21/23 benztropine 0.5 mg tablet 0.5 mg PO BID #60 tabs 10/23/23 docusate sodium 100 mg capsule 100 mg PO BID #60 caps 10/23/23 donepezil 5 mg tablet 10 mg (2 x 5 mg) PO DAILY 90 days 10/23/23 #180 tabs sennosides 8.6 mg tablet (Jaimee-christian) 17.2 mg (2 x 8.6 mg) PO BID PRN 10/23/23 constipation #120 tabs tizanidine 4 mg tablet 4 mg PO TID PRN muscle spasticity 11/03/23 30 days #90 tabs amantadine HCl 100 mg tablet 100 mg PO BID #60 tabs 11/21/23 oxycodone-acetaminophen 5 mg-325 1 tab PO Q8H PRN pain 30 days #90 11/23/23 mg tablet (Percocet) tabs Allergies Allergy/AdvReac Type Severity Reaction Status Date / Time latex [LATEX] Allergy Intermediate SWELLING Verified 11/27/23 03:07 nabumetone Allergy Intermediate pruritus Verified 11/27/23 03:07 aspirin [ASA] Allergy Mild BLEEDING, Verified 11/27/23 03:07 lip edema lidocaine [LIDOCAINE] Allergy Mild SWELLING,ITCHING, Verified 11/27/23 03:07 pruritus carbidopa-levodopa Allergy Severe tracheal Uncoded 11/27/23 03:07 swelling Review of Systems Review of Systems All other systems are reviewed and are negative Constitutional: Reports as per HPI and Reports no additional constitutional complaints Eyes: Reports as per HPI and Reports no additional eye complaints Reports system reviewed and no additional complaints, except as documented Cardiovascular: Reports as per HPI and Reports no additional cardiovascular complaints Respiratory: Reports as per HPI and Reports no additional respiratory complaints Gastrointestinal: Reports as per HPI and Reports no additional gastrointestinal complaints Genitourinary: Reports no additional female genitourinary complaints Musculoskeletal: Reports no additional musculoskeletal complaints Skin/Breast: Reports system reviewed and no additional complaints, except as docu Psychiatric: Reports no additional psychiatric complaints Endocrine: Reports no additional endocrine complaints Hematologic/Lymphatic: Reports no additional hematologic/lymphatic complaints Allergic/Immunologic: Reports no additional allergic/immunologic complaints Reports system reviewed and no additional complaints, except as documented and Reports Abnormal speech present [facility] Past Medical History Medical History Pure hypercholesterolemia Postmenopausal Intestinal malabsorption following gastrectomy BMI 29.0-29.9,adult Overweight (BMI 25.0-29.9) Chronic back pain CAD (coronary artery disease) Hyperlipidemia DVT (deep vein thrombosis) in Cholecystectomy planned Stroke History of DVT (deep vein thrombosis) GERD (gastroesophageal reflux disease) Essential hypertension Idiopathic Parkinsonism ITZ (obstructive sleep apnea) Nausea Constipation by delayed colonic transit Muscle spasm Surgical History S/P laparoscopic sleeve gastrectomy S/P laparoscopic sleeve gastrectomy S/P endoscopy S/P colonoscopy S/P hysterectomy with oophorectomy (Unknown) S/P appendectomy Family History Family History Father No problems noted. Mother Lung cancer Hypertension Social History Social History Household Members: Family Housing: House Alcohol intake: never Patient Tobacco Use Status: Former Tobacco user Tobacco use type: Cigarette e-Cigarette/Vaping Use: Never Used Second Hand Smoke Exposure: No Advance Directives: No Advance Directives Information Provided: Yes service: No Current occupational status: disabled Cognitive needs: Yes Hearing needs: No Vision needs: No Physical Exam ED Vital Signs: Vital Signs - 24 hr 11/27/23 03:07 Temperature 97.7 F Pulse Rate 85 Respiratory Rate 20 Blood Pressure 154/108 H Pulse Oximetry 100 Oxygen Delivery Method Room Air BMI result Body Mass Index 31.4 Vital signs have been reviewed and appear to be correct. Blood pressure elevated. Heart rate normal. Respiratory rate normal. Temperature normal. Oxygen saturation normal. Appearance: Alert. Oriented X3. No acute distress. Head: Normal external exam. Normocephalic. Atraumatic. No Robins signs noted. No raccoon eyes noted Eyes: PERRLA. EOMI. Conjunctiva and sclera normal. Eyelids normal. ENT: TM's Normal. Pharynx normal. Uvula midline. Moist mucous membranes. No trismus noted. No drooling noted. No muffled voice noted. Neck: Normal inspection. Neck supple. FROM. No adenopathy. Thyroid Normal. No meningeal signs. No neck mass noted. CVS: Normal heart rate and rhythm. Heart sound normal. No murmurs noted. Pulses normal throughout. Respiratory: No respiratory distress. Painless inspiration. Breath sounds normal. No wheezes/rales/rhonchi noted. Chest nontender. No accessory muscle usage noted or decreased air movement noted. Abdomen: Soft, epigastric tenderness, no guarding, no rebound tenderness. Bowel sounds normal in all 4 quadrants. No distention noted. No organomegaly noted. No visible injury noted. Back: No CVA tenderness. Full range of motion noted. Skin: Skin warm and dry. Normal skin color. Normal skin turgor. No rashes/lesions/lacerations noted. Extremities: No lower extremity edema. Extremities exhibit normal range of motion. Extremities nontender. Neuro: Oriented X 3. Cranial nerve exam: II-XII are grossly intact No motor deficit. No sensory deficit. Reflexes normal. Course Reevaluation(s) Reevaluation #1: 63-year-old female came in with abdominal pain, with nausea and vomiting with diarrhea that started earlier yesterday, patient now feels better, no nausea, no vomiting, able to tolerate p.o. intake. With improvement of the abdominal pain now abdomen is soft nontender. As CT advised to follow-up with colonoscopy patient was instructed follow-up with the primary doctor to arrange for outpatient colonoscopy patient fully understood my instructions. Time: 06:32 Medical Decision Making Differential Diagnosis Differential Diagnoses: The differential diagnosis associated with the presentation includes (Severe anemia, dehydration, electrolyte derangement, MARI, UTI, gastroenteritis, food poisoning, colitis, diverticulitis, pancreatitis.) Admission/Observation Consideration of admission/observation: Escalation of care including admission/observation considered Lab Data MDM Lab Attestation statement: I reviewed the patient's lab results. 11/27/23 03:53 11/27/23 03:53 Labs: Lab Results 11/27/23 Range/Units 03:53 WBC 7.5 (4.8-10.8) X10*3/uL RBC 4.68 (4.20-5.50) X10*6/uL Hgb 12.2 (12.0-16.0) g/dl Hct 35.2 L (37.0-47.0) % MCV 75.2 L (80.0-98.0) fL MCH 26.1 L (27.0-33.0) pg MCHC 34.7 (31.0-35.0) g/dl RDW 14.7 (11.0-16.0) % Plt Count 214 D (160-400) X10*3/uL MPV 10.2 (9.4-12.3) fL Immature Gran % (Auto) 0.3 (0.0-0.4) % Neut % (Auto) 60.4 (45-73) % Lymph % (Auto) 30.2 (20-40) % [place] % (Auto) 7.2 (2-11) % Eos % (Auto) 1.5 (0-4) % Baso % (Auto) 0.4 (0-2) % Lymph # (Auto) 2.3 (1.2-4.9) X10*3/uL [place] # (Auto) 0.5 (0.1-1.2) X10*3/uL Eos # (Auto) 0.1 (0.0-0.4) X10*3/uL Baso # (Auto) 0.0 (0.0-0.2) X10*3/uL Abs Immat Gran (auto) 0.02 (0.00-0.03) X10*3/uL Absolute Neuts (auto) 4.6 (2.0-8.3) x10*3/uL Absolute Nucleated RBC 0.000 (0.0-0.012) X10*3/uL Nucleated RBC % (auto) 0.0 (0.0-0.2) /100WBC Sodium 143 (135-145) mmol/L Potassium 3.8 (3.3-5.1) mmol/L Chloride 109 H (96-108) mmol/L Carbon Dioxide 26 (22-29) mmol/L Anion Gap 12 (12-20) BUN 10 (9-16) mg/dL Creatinine 0.88 (0.5-1.4) mg/dL Estim Creat Clear Calc 69.8 Estimated GFR > 60 Random Glucose 86 (60-115) mg/dL Calcium 9.6 (8.4-10.2) mg/dL Total Bilirubin 0.4 (0.0-1.0) mg/dL Direct Bilirubin 0.1 (0.0-0.5) mg/dL AST 17 (5-31) U/L ALT 15 (0-31) U/L Alkaline Phosphatase 78 (39-117) U/L Total Protein 7.3 (6.5-8.0) g/dL Albumin 3.8 (3.5-5.0) g/dL Lipase 10 (8-78) U/L Independent Interpretation I performed an independent interpretation of an: CT Scan (Abdomen pelvis:1. No acute findings identified in the abdomen/pelvis. 2. Few sites of focally thick- walled colon, suspected to be due to incomplete luminal distention. Correlation with recent or follow-up colonoscopy is advised to exclude the possibility of a mass at these locations. 3. Cardiomeg) Radiology Impression Discussion of test interpretation with radiology: I discussed test interpretation with the radiologist Medications Administered Discontinued Medications Generic Name Dose Route Start Last Admin Trade Name Freq PRN Reason Stop Dose Admin Al Hydroxide/Mg Hydroxide 30 ml 11/27/23 04:03 11/27/23 05:13 Magnesium Hydrox/Alum Hydrox 30 Ml Oral.Susp PO 11/27/23 04:04 Not Given ONCE ONE Al Hydroxide/Mg Hydroxide 30 ml 11/27/23 05:09 11/27/23 05:20 Magnesium Hydrox/Alum Hydrox 30 Ml Oral.Susp PO 11/27/23 05:10 30 ml ONCE ONE Administration Famotidine 20 mg 11/27/23 04:03 11/27/23 05:12 Famotidine/Pf 20 Mg/2 Ml Vial IVPUSH 11/27/23 04:04 Not Given ONCE ONE Famotidine 20 mg 11/27/23 05:09 11/27/23 05:20 Famotidine 20 Mg Tablet PO 11/27/23 05:10 20 mg ONCE ONE Administration Hydromorphone HCl 1 mg 11/27/23 05:07 11/27/23 05:20 Hydromorphone Hcl 1 Mg/Ml Syringe IM 11/27/23 05:08 1 mg ONCE ONE Administration Protocol Sodium Chloride 1,000 mls @ 999 mls/hr 11/27/23 04:03 11/27/23 05:12 Ns IV 11/27/23 05:03 Not Given .Q1H1M ONE Ketorolac Tromethamine 30 mg 11/27/23 05:07 11/27/23 05:20 Ketorolac Tromethamine 30 Mg/Ml Vial IM 11/27/23 05:08 30 mg ONCE ONE Administration Ondansetron HCl 4 mg 11/27/23 04:03 11/27/23 05:12 Ondansetron Hcl 4 Mg/2 Ml Vial IVPUSH 11/27/23 04:04 Not Given ONCE ONE Discharge Plan Discharge Clinical Impression: Gastroenteritis Patient Disposition: Home, Self-Care Instructions: Gastroenteritis (ED) Prescriptions: No Action (DME) shower seat large See Rx Instructions .Route .MEDSUPPLY Qty: 1 0RF Rx Instructions: As directed acetaminophen [8 Hour Pain Reliever] 650 mg tablet extended release 1,300 mg PO Q8H PRN (Reason: fever or pain) Qty: 180 6RF lactulose 10 gram/15 mL solution 10 g PO BEDTIME PRN (Reason: constipation) 30 Days Qty: 473 0RF clonazepam 0.5 mg tablet 0.5 mg PO DAILY 30 Days Qty: 30 0RF albuterol sulfate 90 mcg/actuation HFA aerosol inhaler 2 puff inhalation Q6-8H 30 Days Qty: 6.7 6RF (DME) walker Misc See Rx Instructions .Route Qty: 1 0RF Rx Instructions: As directed calcium citrate-vitamin D3 315 mg-6.25 mcg (250 unit) tablet 2 tab PO BID Qty: 120 12RF lisinopril 5 mg tablet 5 mg PO DAILY 90 Days Qty: 90 2RF pantoprazole 40 mg tablet,delayed release (DR/EC) 40 mg PO DAILY 90 Days Qty: 90 1RF Xarelto 20 mg tablet 20 mg PO DAILY Qty: 30 6RF amitriptyline 100 mg tablet 100 mg PO BEDTIME Qty: 30 6RF atorvastatin 40 mg tablet 40 mg PO BEDTIME 90 Days Qty: 90 3RF hydrochlorothiazide 25 mg tablet 25 mg PO DAILY 90 Days Qty: 90 3RF docusate sodium 100 mg capsule 100 mg PO BID Qty: 60 3RF sennosides [Jaimee-christian] 8.6 mg tablet 17.2 mg PO BID PRN (Reason: constipation) Qty: 120 4RF benztropine 0.5 mg tablet 0.5 mg PO BID Qty: 60 2RF donepezil 5 mg tablet 10 mg PO DAILY 90 Days Qty: 180 0RF tizanidine 4 mg tablet 4 mg PO TID PRN (Reason: muscle spasticity) 30 Days Qty: 90 3RF amantadine HCl 100 mg tablet 100 mg PO BID Qty: 60 0RF oxycodone-acetaminophen [Percocet] 5-325 mg tablet 1 tab PO Q8H PRN (Reason: pain) 30 Days Qty: 90 0RF cromolyn 4 % drops 1 drp ophthalmic (eye) 6XD 7 Days Qty: 10 0RF prazosin 2 mg capsule 2 mg PO DAILY zolpidem 5 mg tablet 0.5 mg PO BEDTIME Referrals: Jennie Webb MD [Primary Care Provider] -
[2023-11-27 04:11] LABS: Alanine Aminotransferase 15 U/L (0-31); Albumin Level 3.8 g/dL (3.5-5.0); Alkaline Phosphatase 78 U/L (39-117); Anion Gap 12 (12-20); Aspartate Amino Transferase 17 U/L (5-31); Bilirubin Direct 0.1 mg/dL (0.0-0.5); Bilirubin Total 0.4 mg/dL (0.0-1.0); Blood Urea Nitrogen 10 mg/dL (9-16); Calcium 9.6 mg/dL (8.4-10.2); Carbon Dioxide 26 mmol/L (22-29); Chloride 109 mmol/L (96-108); Creatinine Clr Calc Pharmacy 69.8; Estimated Glomerular Filt Rate > 60; Glucose Random 86 mg/dL (60-115); Lipase 10 U/L (8-78); Potassium 3.8 mmol/L (3.3-5.1); Sodium 143 mmol/L (135-145); Total Protein 7.3 g/dL (6.5-8.0)
--- NOTE | 2023-11-27 04:50 | PC.NURSE ---
delay in meds as pt needed ultrasound guided IV
[2023-11-27] MEDS: HYDROmorphone HCl 1 MG/ML SYRINGE IM (05:20)
[2023-11-27] MEDS: Ketorolac Tromethamine 30 MG/ML VIAL IM (05:20)
[2023-11-27] MEDS: Magnesium Hydrox/Alum Hydrox 30 ML ORAL.SUSP PO (05:20)
[2023-11-27] MEDS: Famotidine 20 MG TABLET PO (05:20)
== END 2023-11-27 07:36 | disposition home or self-care (01) ==
PROVIDERS: Emergency Provider Emergency Medicine; PCP Internal Medicine
DX: K52.9 Noninfective gastroenteritis and colitis, unspecified (principal); R10.30 Lower abdominal pain, unspecified; R11.2 Nausea with vomiting, unspecified; Z79.899 Other long term (current) drug therapy
CPT/HCPCS: 36415; 74176; 80048; 80076; 83690; 85025; 96372; 99284; J1170; J1885

== ENCOUNTER 2023-12-04 15:14 | Outpatient (REF) | payer OTHER, SELFPAY | END 2023-12-04 15:15 | disposition home or self-care (01) | LOC: HO.HOSX 15:14 | PROVIDERS: Visit Provider Orthopaedic Surgery | DX: Z13.89 Encounter for screening for other disorder (principal) ==

== ENCOUNTER 2023-12-27 09:37 | Outpatient (REF) | payer OTHER, SELFPAY | END 2023-12-27 09:38 | disposition home or self-care (01) | LOC: HO.HOSX 09:37 | PROVIDERS: Visit Provider Orthopaedic Surgery | DX: Z13.89 Encounter for screening for other disorder (principal) ==

== ENCOUNTER 2024-01-24 06:43 | Outpatient (REF) | payer OTHER, SELFPAY | END 2024-01-24 06:44 | disposition home or self-care (01) | LOC: HO.HOSX 06:43 | PROVIDERS: Visit Provider Orthopaedic Surgery | DX: Z13.89 Encounter for screening for other disorder (principal) ==

== ENCOUNTER 2024-03-17 15:01 | Outpatient (AMB) | payer OTHER, SELFPAY ==
--- NOTE | 2024-03-17 15:03 | MHC.PC.OV ---
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: No Accompanied by: Daughter Allergies latex [LATEX] Allergy (Intermediate, Verified 03/17/24 15:25) SWELLING nabumetone Allergy (Intermediate, Verified 03/17/24 15:25) pruritus aspirin [ASA] Allergy (Mild, Verified 03/17/24 15:25) BLEEDING, lip edema lidocaine [LIDOCAINE] Allergy (Mild, Verified 03/17/24 15:25) SWELLING,ITCHING, pruritus carbidopa-levodopa Allergy (Severe, Uncoded 03/17/24 15:25) tracheal swelling Medication List - Last Reconciled 03/17/24 by Jennie Hahn MD acetaminophen ER (8 Hour Pain Reliever) 1,300 mg (2 x 650 mg) PO Q8H PRN albuterol sulfate 90 mcg/actuation 2 puffs inhalation Q6-8H 30 days amantadine HCl 100 mg PO BID amitriptyline 100 mg PO BEDTIME atorvastatin 40 mg PO BEDTIME 90 days benztropine 0.5 mg PO BID calcium citrate-vitamin D3 315 mg-6.25 mcg (250 unit) 2 tabs PO BID clonazepam 0.5 mg PO DAILY 30 days cromolyn 4% 1 drp ophthalmic (eye) 6XD 7 days docusate sodium 100 mg PO BID donepezil 10 mg (2 x 5 mg) PO DAILY 90 days ferrous fumarate-vitamin C 200 mg (65 mg iron)-25 mg (Saran-Sequels (iron-vit c)) 1 tab PO DAILY hydrochlorothiazide 25 mg PO DAILY 90 days lactulose 10 grams (15 mL) PO BEDTIME PRN 30 days lisinopril 5 mg PO DAILY 90 days oxycodone-acetaminophen 5-325 mg (Percocet) 1 tab PO Q8H PRN 30 days pantoprazole 40 mg PO DAILY 90 days prazosin 2 mg PO DAILY rivaroxaban (Xarelto) 20 mg PO DAILY sennosides (Jaimee-christian) 17.2 mg (2 x 8.6 mg) PO BID PRN [shower seat As directed] tizanidine 4 mg PO TID PRN 30 days walker As directed zolpidem 0.5 mg PO BEDTIME Tobacco use date assessed: 11/07/23 Fall risk assessment: 1 Fall in past year Last assessed Fall Risk: 03/17/24 Dental Screening Dental Screen Date: 11/07/23 HPI HPI Comments History of Present Illness Details This is a 63-year-old female with history of DVT and idiopathic parkinsonism that comes accompanied by daughter which is the tree doctor for her physical exam. On chronic anticoagulation for multiple episodes of DVT follow by Hematology-Oncology. Parkinsonism is follow by Neurology. Last mammogram was over a year ago. Last DEXA scan was 2020. Last colonoscopy was 2015 and had a suboptimal prep and needed another colonoscopy in 2020. I will refer her to another colonoscopy due to this matter. She complains of severely dozing off while watching TV, sitting and reading, lying down to rest in the afternoon when circumstances permit and sitting quietly after lunch without alcohol with Renwick score Scale of 12. I will order sleep study. She also complains of left knee pain that has been present for years but has been more prominent this past few months. FORMERLY [facility], [facility] Medical History (Updated 03/17/24 @ 15:45 by Jennie Hahn MD) Pure hypercholesterolemia Postmenopausal Intestinal malabsorption following gastrectomy BMI 29.0-29.9,adult Overweight (BMI 25.0-29.9) Chronic back pain CAD (coronary artery disease) Hyperlipidemia DVT (deep vein thrombosis) in Cholecystectomy planned Stroke History of DVT (deep vein thrombosis) GERD (gastroesophageal reflux disease) Essential hypertension Idiopathic Parkinsonism ITZ (obstructive sleep apnea) Nausea Constipation by delayed colonic transit Muscle spasm Surgical History S/P laparoscopic sleeve gastrectomy S/P laparoscopic sleeve gastrectomy S/P endoscopy S/P colonoscopy S/P hysterectomy with oophorectomy (Unknown) S/P appendectomy Family History Father No problems noted. Mother Lung cancer Hypertension Social History Household Members: Family Housing: House Alcohol intake: never Patient Tobacco Use Status: Former Tobacco user Tobacco use type: Cigarette e-Cigarette/Vaping Use: Never Used Second Hand Smoke Exposure: No service: No Current occupational status: disabled Cognitive needs: Yes Hearing needs: No Vision needs: No Questionnaire Thrive Questionnaire Date Thrive assessed: 11/07/23 KANCHAN-7 AMB Questionnaire KANCHAN-7 Date KANCHAN - 7 assessed: 11/07/23 Source: Developed by Drs. Ahsan Howard, Delaney Morales, Cedrick Mcknight and colleagues, with an educational kobe from [employer]. Review of Systems Const All systems reviewed & are unremarkable except as noted in HPI and below Card Denies chest pain at rest, Denies chest pain with activity, Denies edema, Denies irregular heart rhythm, Denies claudication, Denies dyspnea, Denies dyspnea on exertion, Denies orthopnea, Denies paroxysmal nocturnal dyspnea and Denies slow heart rate Resp Denies cough, Denies dyspnea and Denies dyspnea on exertion Denies urinary incontinence, Denies urinary hesitancy and Denies urinary urgency Physical exam (Primary Care) Vital Signs: Last Vital Signs BP 130/84 03/17/24 15:04 BMI result Body Mass Index 33.1 BMI Assessment/Plan discussion: High BMI High, discussed plan: lifestyle, weight reduction, dietary and physical activity Tobacco/Smoking Status: Tobacco use Status Tobacco use date assessed 11/07/23 03/17/24 15:11 Patient Tobacco Use Status Former Tobacco user 03/17/24 15:11 Tobacco use type Cigarette 03/17/24 15:11 e-Cigarette/Vaping Use Never Used 03/17/24 15:11 Thrive Assessment: Date of Thrive Assessment Date Thrive assessed 11/07/23 03/17/24 15:11 HENOR Head: Yes normal to inspection, Yes normocephalic and Yes atraumatic Ears: external ears normal Eyes General: appearance normal, both eyes and all related structures Eyelids: Yes eyelids normal Conjunctivae: conjunctivae normal Neck Neck: Yes normal visual inspection and Yes supple Resp Effort & Inspection: normal respiratory effort Auscultation: clear to auscultation bilaterally Cardio Jugular venous distension: no JVD Rate: regular rate Rhythm: regular rhythm Heart sounds: S1 normal heart sound present and S2 normal heart sound present GI Inspection: Yes normal to inspection Palpation (GI): Soft to palpation and nontender Auscultation: normal bowel sounds Skin General skin exam: no rashes or lesions noted Neuro General: no focal motor deficits Cognition (Neuro): normal cognition Gait exam (Neuro): Shuffling gait present Motor exam (neuro): Tremors during motor activity present Extrem General: Yes full ROM Psych Appearance: grossly normal Assessment and Plan Assessment & Plan (1) Physical exam: Code(s): Z00.00 - Encounter for general adult medical examination without abnormal findings Plan: Repeat in a year. (2) Deep vein thrombosis: Code(s): I82.409 - Acute embolism and thrombosis of unspecified deep veins of unspecified lower extremity Qualifiers: DVT location: lower extremity Affected thrombotic vein of extremity: unspecified vein of extremity Chronicity: chronic Laterality: unspecified laterality Qualified Code(s): I82.509 - Chronic embolism and thrombosis of unspecified deep veins of unspecified lower extremity Plan: Continue Xarelto. Follow-up with Hematology-Oncology. (3) Idiopathic Parkinsonism: Code(s): G20 - Parkinson's disease Plan: Follow-up with neurology. (4) Left knee pain: Code(s): M25.562 - Pain in left knee Qualifiers: Chronicity: chronic Qualified Code(s): M25.562 - Pain in left knee; G89.29 - Other chronic pain Plan: X-ray ordered. (5) Daytime somnolence: Code(s): R40.0 - Somnolence Plan: Sleep study ordered. Orders: Orders Vitamin D 25-OH Total Today E55.9 - Vitamin D deficiency, unspecified Vitamin B12 and Folate Today E53.8 - Deficiency of other specified B group vitamins Comprehensive [place]ph[place]. Panel Fast Today I25.10 - Atherosclerotic heart disease of [place] coronary artery without angina pectoris MM screening mammo BI Today Z12.31 - Encounter for screening mammogram for malignant neoplasm of breast XR DEXA axial skeleton Today N95.9 - Unspecified menopausal and perimenopausal disorder RT home sleep study Today R40.0 - Somnolence XR knee LT 2V Today M25.562 - Pain in left knee Lipid Panel Today E78.5 - Hyperlipidemia, unspecified Referrals Gastroenterology Referral Z12.11 - Encounter for screening for malignant neoplasm of colon Coding Level of Care Code Est Pt Level 3 (61282) Est Pt Prev Care 40-64y(45259) Diagnoses Physical exam Z00.00 Chronic deep vein thrombosis (DVT) of lower extremity, unspecified laterality, unspecified vein I82.509 DVT location: lower extremity Affected thrombotic vein of extremity: unspecified vein of extremity Chronicity: chronic Laterality: unspecified laterality Idiopathic Parkinsonism G20 Chronic pain of left knee M25.562; G89.29 Chronicity: chronic Daytime somnolence R40.0 Time Spent (min) 40
[2024-03-17 15:04] VITALS: BP 130/84; BMI 33.1
== END 2024-03-17 15:38 | disposition home or self-care (01) ==
PROVIDERS: PCP Internal Medicine; Visit Provider Internal Medicine
DX: Z00.00 Encounter for general adult medical examination without abnormal findings (principal); I82.509 Chronic embolism and thrombosis of unspecified deep veins of unspecified lower extremity; G20.C Parkinsonism, unspecified; M25.562 Pain in left knee; G89.29 Other chronic pain; R40.0 Somnolence
CPT/HCPCS: 99213; 99396

== ENCOUNTER 2024-05-27 13:27 | Outpatient (AMB) | payer OTHER, SELFPAY ==
[2024-05-27 13:29] VITALS: BP 138/82; PULSE 60; O2SAT 98; BMI 32.8
--- NOTE | 2024-05-27 13:29 | MHC.PC.OV ---
Vital Signs 05/27/24 13:29 Height 5 ft 5 in Weight 197 lb BMI 32.8 BP 138/82 Blood Pressure Location Lt brachial Position Sitting Pulse 60 Pulse Source Pulse Oximeter Pulse Oximetry (%) 98 Oxygen Delivery Method Room Air Intake Visit Reasons: Discharge 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 Accompanied by: Daughter Allergies latex [LATEX] Allergy (Intermediate, Verified 05/27/24 13:30) SWELLING nabumetone Allergy (Intermediate, Verified 05/27/24 13:30) pruritus aspirin [ASA] Allergy (Mild, Verified 05/27/24 13:30) BLEEDING, lip edema lidocaine [LIDOCAINE] Allergy (Mild, Verified 05/27/24 13:30) SWELLING,ITCHING, pruritus carbidopa-levodopa Allergy (Severe, Uncoded 05/27/24 13:30) tracheal swelling Tobacco use date assessed: 05/27/24 Fall risk assessment: No Falls in past year Last assessed Fall Risk: 05/27/24 Dental Screening Dental Screen Date: 05/27/24 Did you have a dental visit in the last 12 months?: No Did you have a dental problem in the last 6 months where you did not have access to dental care?: No Was dental information given to patient?: No HPI HPI Comments History of Present Illness Details 63 y/o female patient who presents to the clinic today for HDF. She was admitted at [facility] on 05/14/24 for Abdominal mass LLQ and discharged home on 05/20/24. She had abdominal abscess drained with needle IR with drain placement. She had a Drain removed on 05/19/24. Pt still c/o abdominal tenderness with palpitation . She completed her Abx course of Doxycycline. She was advised to RT hospital ED if experience increased abdominal pain with high Grade fevers. She was told if not improved, she would need surgical debridement/drainage of the abscess. Pt currently in severe pain with Nausea. FORMERLY [facility] Medical History Pure hypercholesterolemia Postmenopausal Intestinal malabsorption following gastrectomy BMI 29.0-29.9,adult Overweight (BMI 25.0-29.9) Chronic back pain CAD (coronary artery disease) Hyperlipidemia DVT (deep vein thrombosis) in Cholecystectomy planned Stroke History of DVT (deep vein thrombosis) GERD (gastroesophageal reflux disease) Essential hypertension Idiopathic Parkinsonism ITZ (obstructive sleep apnea) Nausea Constipation by delayed colonic transit Muscle spasm Surgical History S/P laparoscopic sleeve gastrectomy S/P laparoscopic sleeve gastrectomy S/P endoscopy S/P colonoscopy S/P hysterectomy with oophorectomy (Unknown) S/P appendectomy Family History Father No problems noted. Mother Lung cancer Hypertension Social History Household Members: Family Housing: House Alcohol intake: never Patient Tobacco Use Status: Former Tobacco user Tobacco use type: Cigarette e-Cigarette/Vaping Use: Never Used Second Hand Smoke Exposure: No service: No Current occupational status: disabled Cognitive needs: Yes Hearing needs: No Vision needs: No Questionnaire PHQ-9 Over the last 2 weeks, how often have you been bothered by any of the following problems? 1. Little interest or pleasure in doing things: not at all 2. Feeling down, depressed, or hopeless: not at all 3. Trouble falling or staying asleep, or sleeping too much: not at all 4. Feeling tired or having little energy: not at all 5. Poor appetite or overeating: not at all 6. Feeling bad about yourself - or that you are a failure or have let yourself or your family down: not at all 7. Trouble concentrating on things, such as reading the newspaper or watching television: not at all 8. Moving or speaking so slowly that other people could have noticed. Or the opposite - being so fidgety or restless that you have been moving around a lot more than usual: not at all 9. Thoughts that you would be better off or of hurting yourself in some way: not at all Total score: 0 Depression Screening Interpretation: Negative Depression Screening Done: Yes 26775 - PHQ-9 Billing: Yes Source: Developed by Drs. Ahsan Howard, Delaney Morales, Cedrick Mcknight and colleagues, with an educational kobe from [employer]. Thrive Questionnaire Date Thrive assessed: 05/27/24 I am a: Patient What is your living situation today?: I have a steady place to live Within the past 12 months, did the food you bought not last and you didn't have the money to get more?: Never true Within the past 12 months, did you worry whether your food would run out before you got money to buy more?: Never true Do you have trouble paying for medicines?: No Do you have trouble getting transportation to medical appointments?: No Do you have trouble paying your heating and electricity bill?: No Do you have trouble taking care of your child, family member or friend?: No Do you have trouble with day-to-day activities such as bathing, preparing meals, shopping, managing finances, etc.?: No Are you currently unemployed and looking for a job?: No Are you interested in more education?: No Please select the resources that you would like help with: None Currently or been in a relationship where the following occur: No concerns reported THRIVE Score: 0 AUDIT C Alcohol Use Questionnaire (AUDIT-C) 1. How often do you have a drink containing alcohol?: Never Total Score: 0 KANCHAN-7 AMB Questionnaire KANCHAN-7 Date KANCHAN - 7 assessed: 05/27/24 Feeling nervous, anxious, or on edge: 0 = Not at all Not being able to stop or control worryin = Not at all Worrying too much about different things: 0 = Not at all Trouble relaxin = Not at all Being so restless that it is hard to sit still: 0 = Not at all Becoming easily annoyed or irritable: 0 = Not at all Feeling afraid as if something awful might happen: 0 = Not at all Total KANCHAN-7 score (0-4 normal; 5-9 mild; 10-14 moderate; 15-21 severe): 0 Source: Developed by Drs. Ahsan Howard, Delaney Morales, Cedrick Mcknight and colleagues, with an educational kobe from [employer]. Review of Systems Const All systems reviewed & are unremarkable except as noted in HPI and below Physical exam (Primary Care) Vital Signs: Last Vital Signs Pulse 60 05/27/24 13:29 BP 138/82 05/27/24 13:29 Pulse Ox 98 05/27/24 13:29 Oxygen Delivery Method Room Air 05/27/24 13:29 BMI result Body Mass Index 32.8 Tobacco/Smoking Status: Tobacco use Status Tobacco use date assessed 05/27/24 05/27/24 13:34 Patient Tobacco Use Status Former Tobacco user 05/27/24 13:34 Tobacco use type Cigarette 05/27/24 13:34 e-Cigarette/Vaping Use Never Used 05/27/24 13:34 PHQ-9: PHQ-9 Score PHQ-9: Total score 0 05/27/24 13:34 Depression Screening Interpretation: Negative Thrive Assessment: Date of Thrive Assessment Date Thrive assessed 05/27/24 05/27/24 13:34 Currently or been in a relationship where the following occur: No concerns reported Const General: cooperative and no acute distress; No comfortable Nutritional Appearance: obese Orientation/consciousness: patient oriented x3 Limitations: language barrier (spanish medical interpreter used) Resp Effort & Inspection: normal respiratory effort Cardio Heart sounds: S1 normal heart sound present and S2 normal heart sound present GI Inspection: Yes Abdominal panniculus present and Yes obesity Palpation (GI): Soft to palpation, not firm, Tenderness to palpation present (GI) (Small opening where the drain was, some redness and tenderness) in the LLQ, no guarding, not rigid and No hepatosplenomegaly present Auscultation: normal bowel sounds Skin General skin exam: erythema Neuro General: patient oriented x3, gait normal and moves all extremities Psych Speech and movement: Normal speech and movement present Assessment and Plan Assessment & Plan (1) Abdominal wall abscess: Code(s): L02.211 - Cutaneous abscess of abdominal wall Plan: Advised to Return to the hospital for further management. She might need surgical debridement. Pt and daughter agreed to go to [facility] today. Coding Level of Care Code Est Pt Level 4 (70964) Diagnoses Abdominal wall abscess L02.211 Time Spent (min) 20 Comment Spent reviewing hospital notes
== END 2024-05-27 16:07 | disposition home or self-care (01) ==
PROVIDERS: PCP Internal Medicine; Visit Provider Nurse Practitioner Family
DX: L02.211 Cutaneous abscess of abdominal wall (principal)
CPT/HCPCS: 99214

== ENCOUNTER 2024-06-04 07:35 | Outpatient (AMB) | payer OTHER, SELFPAY ==
--- NOTE | 2024-06-04 07:40 | MHC.PC.OV ---
Vital Signs 06/04/24 07:41 Height 5 ft 5 in Weight 193 lb BMI 32.1 BP 132/80 Blood Pressure Location Lt brachial Position Sitting Intake Visit Reasons: HDF 05/14/24-05/20/2024 abdominal mass Restaurant Line Server Required: No Accompanied by: son in law Allergies latex [LATEX] Allergy (Intermediate, Verified 06/04/24 07:54) SWELLING nabumetone Allergy (Intermediate, Verified 06/04/24 07:54) pruritus aspirin [ASA] Allergy (Mild, Verified 06/04/24 07:54) BLEEDING, lip edema lidocaine [LIDOCAINE] Allergy (Mild, Verified 06/04/24 07:54) SWELLING,ITCHING, pruritus carbidopa-levodopa Allergy (Severe, Uncoded 06/04/24 07:54) tracheal swelling Medication List - Last Reconciled 06/04/24 by Jennie Hahn MD acetaminophen ER (8 Hour Pain Reliever) 1,300 mg (2 x 650 mg) PO Q8H PRN albuterol sulfate 90 mcg/actuation 2 puffs inhalation Q6-8H 30 days amantadine HCl 100 mg PO BID amitriptyline 100 mg PO BEDTIME atorvastatin 40 mg PO BEDTIME 90 days benztropine 0.5 mg PO BID bupropion HCl XL 150 mg PO DAILY calcium citrate-vitamin D3 315 mg-6.25 mcg (250 unit) 2 tabs PO BID [Clamp on top grab bar As directed] clonazepam 0.5 mg PO DAILY 30 days cromolyn 4% 1 drp ophthalmic (eye) 6XD 7 days docusate sodium 100 mg PO BID donepezil 10 mg (2 x 5 mg) PO DAILY 90 days donepezil 10 mg PO DAILY doxycycline monohydrate 100 mg PO BID ferrous fumarate-vitamin C 200 mg (65 mg iron)-25 mg (Saran-Sequels (iron-vit c)) 1 tab PO DAILY [Grab bar 24 inch for wall As directed] hydrochlorothiazide 25 mg PO DAILY 90 days lactulose 10 grams (15 mL) PO BEDTIME PRN 30 days lisinopril 5 mg PO DAILY 90 days oxycodone-acetaminophen 5-325 mg (Percocet) 1 tab PO Q8H PRN 30 days pantoprazole 40 mg PO DAILY 90 days prazosin 2 mg PO DAILY rivaroxaban (Xarelto) 20 mg PO DAILY sennosides (Jaimee-christian) 17.2 mg (2 x 8.6 mg) PO BID PRN [shower seat As directed] tizanidine 4 mg PO TID PRN 30 days [Top transfer bench As directed] walker As directed zolpidem 0.5 mg PO BEDTIME Tobacco use date assessed: 05/27/24 Fall risk assessment: No Falls in past year Last assessed Fall Risk: 06/04/24 Dental Screening Dental Screen Date: 05/27/24 HPI HPI Comments History of Present Illness Details This is a 63-year-old female with hypertension, idiopathic parkinsonism, lumbar degenerative disc disease and 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 She was hospitalized at [facility] from 05/14/2024 to 05/20/2024 due to this matter in which she found to have abdominal abscess drain with needle 05/15/2024. Patient was complaining of abdominal pain 2 weeks prior to arrival to the hospital. She has history of appendectomy, cholecystectomy and status post hernia repair with mesh in 1997 at [facility] and in 2011 had open laparotomy for intra-abdominal clot removal that was done in [facility]. There was a colon resection with ostomy placed which subsequently reversed. CT scan of abdomen and pelvis was done while hospitalized showing a mass like lesion in left lower rectus muscle overlying the prior hernia repair. Culture was positive for MSSA and she was placed on Zosyn and then Unasyn. She was placed on doxycycline as outpatient and completed 10 days. Saw ID yesterday which prescribed another 10 days of doxycycline and recommended surgery referral to [facility] general surgery. She is still in pain. Labs including CBC and CRP will be repeated. I also order CT scan of the abdomen and pelvis. Blood pressure stable. Parkinson's is follow by Neurology and has not significantly changed. On opiates for lumbar degenerative disc disease. On chronic anticoagulation for her DVT is which are follow by Hematology-Oncology and she denies any active bleeding. REPLACED BY [facility] Medical History (Updated 06/04/24 @ 08:26 by Jennie Hahn MD) Pure hypercholesterolemia Postmenopausal Intestinal malabsorption following gastrectomy BMI 29.0-29.9,adult Overweight (BMI 25.0-29.9) Chronic back pain CAD (coronary artery disease) Hyperlipidemia DVT (deep vein thrombosis) in Cholecystectomy planned Stroke History of DVT (deep vein thrombosis) GERD (gastroesophageal reflux disease) Essential hypertension Idiopathic Parkinsonism ITZ (obstructive sleep apnea) Nausea Constipation by delayed colonic transit Muscle spasm Surgical History S/P laparoscopic sleeve gastrectomy S/P laparoscopic sleeve gastrectomy S/P endoscopy S/P colonoscopy S/P hysterectomy with oophorectomy (Unknown) S/P appendectomy Family History Father No problems noted. Mother Lung cancer Hypertension Social History Household Members: Family Housing: House Alcohol intake: never Patient Tobacco Use Status: Former Tobacco user Tobacco use type: Cigarette e-Cigarette/Vaping Use: Never Used Second Hand Smoke Exposure: No service: No Current occupational status: disabled Cognitive needs: Yes Hearing needs: No Vision needs: No Questionnaire Thrive Questionnaire Date Thrive assessed: 05/27/24 KANCHAN-7 AMB Questionnaire KANCHAN-7 Date KANCHAN - 7 assessed: 05/27/24 Source: Developed by Drs. Ahsan Howard, Delaney Morales, Cedrick Mcknight and colleagues, with an educational kobe from [employer]. Review of Systems Const All systems reviewed & are unremarkable except as noted in HPI and below Card Denies chest pain at rest, Denies chest pain with activity, Denies edema, Denies irregular heart rhythm, Denies claudication, Denies dyspnea, Denies dyspnea on exertion, Denies orthopnea, Denies paroxysmal nocturnal dyspnea and Denies slow heart rate Resp Denies cough, Denies dyspnea and Denies dyspnea on exertion GI Reports abdominal pain, Denies change in bowel habits, Denies excessive flatus, Denies nausea and Denies vomiting Denies urinary incontinence, Denies urinary hesitancy and Denies urinary urgency Musc Denies atrophy, Denies deformity and Denies limited range of motion Physical exam (Primary Care) Vital Signs: Last Vital Signs BP 132/80 06/04/24 07:41 BMI result Body Mass Index 32.1 BMI Assessment/Plan discussion: High BMI High, discussed plan: lifestyle, weight reduction, dietary and physical activity Tobacco/Smoking Status: Tobacco use Status Tobacco use date assessed 05/27/24 06/04/24 07:49 Patient Tobacco Use Status Former Tobacco user 06/04/24 07:49 Tobacco use type Cigarette 06/04/24 07:49 e-Cigarette/Vaping Use Never Used 06/04/24 07:49 Thrive Assessment: Date of Thrive Assessment Date Thrive assessed 05/27/24 06/04/24 07:49 Const General: cooperative Nutritional Appearance: obese Resp Effort & Inspection: normal respiratory effort Auscultation: clear to auscultation bilaterally Cardio Jugular venous distension: no JVD Rate: regular rate Rhythm: regular rhythm Heart sounds: S1 normal heart sound present and S2 normal heart sound present GI Inspection: Yes scar Palpation (GI): Soft to palpation, Tenderness to palpation present (GI) in the LLQ, Guarding due to palpation present (GI) in the LLQ and Palpable mass present LLQ soft and tender Auscultation: normal bowel sounds Neuro Gait exam (Neuro): Shuffling gait present Assessment and Plan Assessment & Plan (1) Left lower quadrant abdominal mass: Code(s): R19.04 - Left lower quadrant abdominal swelling, mass and lump Plan: CT of abdomen and pelvis ordered. Labs ordered. Referred to [facility] general surgery. (2) Idiopathic Parkinsonism: Code(s): G20 - Parkinson's disease Plan: Follow-up with neurology. Continue amantadine. (3) Essential hypertension: Code(s): I10 - Essential (primary) hypertension Plan: Continue lisinopril. Blood pressure goal is equal or less than 130/80. (4) Deep vein thrombosis: Code(s): I82.409 - Acute embolism and thrombosis of unspecified deep veins of unspecified lower extremity Qualifiers: DVT location: lower extremity Affected thrombotic vein of extremity: unspecified vein of extremity Chronicity: chronic Laterality: unspecified laterality Qualified Code(s): I82.509 - Chronic embolism and thrombosis of unspecified deep veins of unspecified lower extremity Plan: Continue Doacs. (5) Degenerative disc disease, lumbar: Code(s): M51.36 - Other intervertebral disc degeneration, lumbar region Plan: Continue opiates as needed. Orders: Orders Complete Blood Count Auto Diff Today R19.03 - Right lower quadrant abdominal swelling, mass and lump CT abdomen pelvis wo/w IV con Today R19.03 - Right lower quadrant abdominal swelling, mass and lump Comprehensive Met. Panel Today R19.03 - Right lower quadrant abdominal swelling, mass and lump CRP High Sensitivity Today R19.03 - Right lower quadrant abdominal swelling, mass and lump Referrals General Surgery Referral R19.04 - Left lower quadrant abdominal swelling, mass and lump Coding Level of Care Code Est Pt Level 4 (54786) Complex EM visit Add On G2211 Diagnoses Left lower quadrant abdominal mass R19.04 Idiopathic Parkinsonism G20 Essential hypertension I10 Chronic deep vein thrombosis (DVT) of lower extremity, unspecified laterality, unspecified vein I82.509 DVT location: lower extremity Affected thrombotic vein of extremity: unspecified vein of extremity Chronicity: chronic Laterality: unspecified laterality Degenerative disc disease, lumbar M51.36 Time Spent (min) 26
[2024-06-04 07:41] VITALS: BP 132/80; BMI 32.1
== END 2024-06-04 08:07 | disposition home or self-care (01) ==
PROVIDERS: PCP Internal Medicine; Visit Provider Internal Medicine
DX: R19.04 Left lower quadrant abdominal swelling, mass and lump (principal); G20.C Parkinsonism, unspecified; I82.509 Chronic embolism and thrombosis of unspecified deep veins of unspecified lower extremity; I10 Essential (primary) hypertension; M51.36 Other intervertebral disc degeneration, lumbar region
CPT/HCPCS: 99214; G2211

== ENCOUNTER 2025-03-30 14:17 | Outpatient (AMB) | payer OTHER, SELFPAY ==
--- OUTSIDE RECORDS SUMMARY | 2002-03-25 20:00 | XMS_ITS | Continuity of Care Document ---
Author Organization luisa Jackson [facility] Address [address] [address],[address] [place] [address] Phone Care Team Providers Care Station Engineer Main Line Name Role Phone Sherita Wyman MD Unavailable Unavailable Medications Medication Instructions Dosage Effective Dates (start - stop) Status Comments lisinopril 40 mg Tab 1 Every Morning - No Longer Active ALBUTEROL INHALE 2 PUFFS every 4 hours prn - No Longer Active Z-CONVERTED A LOT INHALE 2 PUFFS TWO TIMES daily - No Longer Active Prilosec 20 mg Cap 1 Every Morning - 2 No Longer Active Norvasc 10 mg Tab 1 Every Morning - No Longer Active albuterol sulfate 2.5 mg/3 mL (0.083 %) Neb Solution INSTILL 1 per neb FOUR TIMES NEEDED - No Longer Active Advance Directives Directive Yes / No Effective Date File Name No Information Encounters Encounter Description Practice Location Reason(s) For Visit Diagnoses Date Provider Providers Copied on Encounter luisa [facility], [address] [place] [address], [id number], tel:[phone] Converted Locations No Information 2 Zamzam Magallon. [address] [place] [address], [id number] , [place]. tel:[phone] Donald Jackson [facility], [address] [place] [address],[address], [id number], tel:[phone] [facility] LumbagoEdema 2 DOttavio Sherita. [address] [place] [address], [id number] , [place]. tel:[phone] luisa [facility], [address], [place], [place], [id number], [place] tel:[phone] [facility] Unspecified gastritis and gastroduodeniti s (without mention of hemorrhage) 1 DOttavio Sherita. [address] [place] [address], [id number] , [place]. tel:[phone] luisa [facility], [address], [place], [place], [id number], [place] tel:[phone] [facility] Benign essential hypertension 1 DOttavio Sherita. [address] [place] [address], [id number] , [place]. tel:[phone] [facility], [address] [place] [address],Suite [facility], [place], [place], [id number], [place] tel:[phone] [facility] CHRONIC OBSTRUCTIVE ASTHMA, UNSPECIFIED 1 DOttavio Sherita. [address] [place] [address], [id number] , [place]. tel:[phone] luisa [facility], [address], [place], [place], [id number], [place] tel:[phone] Converted Locations Nondependent tobacco use disorderTension headache 1 Z-Convert ed Provider. . luisa [facility], [address], [place], [place], [id number], [place] tel:[phone] Converted Locations Urge incontinence 6 1 Z-Convert ed Provider. . [facility], [address] [address],[address], [place], [place], [id number], [place] tel:[phone] Converted Locations Diabetes mellitus without mention of complication, type II or unspecified type, not stated as uncontrolled 3200 1 Z-Convert ed Provider. . Family History Family Member Type Diagnosis Age At Onset No Information Payers Payer name Insurance type Covered republican ID Authoriza tisandy(s) No Information Social History Type Description Quantity Date Captured Comments Sex Female Smoking Status No Information Chief Complaint And Reason For Visit No Information Reason For Referral Reason For Referral No Information History Of Present Illness Encounter Date Complaint History Of Prese nt Illness No Information Functional Status Date Functional Assessmen t No Information Instructions Date Instruction Additional Infor mation No Information Assessments Type Assessment Date No Information Patient Care Teams Name Effective Dates (start - stop) Status Members No Information
--- NOTE | 2025-03-30 14:36 | A.OFFPC_ITS ---
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 Required: No Accompanied by: Grand Child Allergies latex (LATEX) Allergy (Intermediate, Verified 03/30/25 14:51) SWELLING nabumetone Allergy (Intermediate, Verified 03/30/25 14:51) pruritus aspirin (ASA) Allergy (Mild, Verified 03/30/25 14:51) BLEEDING, lip edema lidocaine (LIDOCAINE) Allergy (Mild, Verified 03/30/25 14:51) SWELLING,ITCHING, pruritus carbidopa-levodopa Allergy (Severe, Uncoded 03/30/25 14:51) tracheal swelling Medication List - Last Reconciled 03/30/25 by Jennie Hahn MD acetaminophen ER (8 Hour Pain Reliever) 1,300 mg (2 x 650 mg) PO Q8H PRN albuterol sulfate 90 mcg/actuation 2 puffs inhalation Q6-8H 30 days amantadine HCl 100 mg PO BID amitriptyline 100 mg PO BEDTIME atorvastatin 40 mg PO BEDTIME 90 days benztropine 0.5 mg PO BID bupropion HCl XL 150 mg PO DAILY calcium citrate-vitamin D3 315 mg-6.25 mcg (250 unit) 2 tabs PO BID [Clamp on tub grab bar As directed] clonazepam 0.5 mg PO DAILY 30 days cromolyn 4% 1 drp ophthalmic (eye) 6XD 7 days docusate sodium 100 mg PO BID donepezil 10 mg (2 x 5 mg) PO DAILY 90 days donepezil 10 mg PO DAILY doxycycline monohydrate 100 mg PO BID ferrous sulfate (iron) 325 mg PO DAILY [Grab bar 24 inch for wall As directed] hydrochlorothiazide 25 mg PO DAILY 90 days lactulose 10 grams (15 mL) PO BEDTIME PRN 30 days lisinopril 5 mg PO DAILY 90 days miscellaneous medical supply raised toilet seat- use as directed oxycodone-acetaminophen 5-325 mg (Percocet) 1 tab PO Q8H PRN 30 days pantoprazole 40 mg PO DAILY 90 days prazosin 2 mg PO DAILY rivaroxaban (Xarelto) 20 mg PO DAILY sennosides (Jaimee-christian) 17.2 mg (2 x 8.6 mg) PO BID PRN [shower seat As directed] tizanidine 4 mg PO TID PRN 30 days [Top transfer bench As directed] walker As directed zolpidem 5 mg PO BEDTIME 30 days Tobacco use date assessed: 03/30/25 Fall risk assessment: 2 + Falls in past year Last assessed Fall Risk: 03/30/25 Dental Screening Dental Screen Date: 03/30/25 Did you have a dental visit in the last 12 months?: No Did you have a dental problem in the last 6 months where you did not have access to dental care?: No Was dental information given to patient?: Patient declined HPI HPI Comments History of Present Illness Details The patient is a 64-year-old female presenting with a need for a physical examination and preventative care measures. She has a history of ob esity with a BMI over 30 and is being referred to a manager quality improvement for weight management. The patient reports a non-pruritic rash on the right side of her neck, which has been present since August, and she will be referred to dermatology for further evaluation. She has right hip pain and x-ray will be ordered. The patient has a history of hypertension, which is managed with lisinopril. She also has a history of hyperlipidemia, managed with atorvastatin, and depression, managed with bupropion. Additionally, she takes clonazepam for anxiety and amitriptyline at night. The patient has a history of Parkinson's disease, for which she takes amantadine. She also has a history of constipation, managed with lactulose. Her surgical history includes a hysterectomy, appendectomy, cholecystectomy, and gastrectomy. The patient underwent a colonoscopy in 2015, which showed inadequate preparation, and she is due for another colonoscopy. She is also due for a bone densitometry and mammography as part of her preventative care. She dozes off while watching TV, sitting and reading, lying down in the afternoon and as a passenger in a car with an [place] score Scale of 12. Has obstructive sleep apnea and last sleep study was few years ago. - Referral to manager quality improvement for weight ma nagement due to obesity - Referral to dermatology for evaluation of non-pruritic rash on the neck - Scheduled for bone densitometry - Scheduled for mammography - Scheduled for colonoscopy due to inade quate preparation in 2016 [facility] Medical History (Updated 03/30/25 @ 15:12 by Jennie Hahn MD) Pure hypercholesterolemia Postmenopausal Intestinal malabsorption following gastrectomy BMI 29.0-29.9,adult Overweight (BMI 25.0-29.9) Chronic back pain CAD (coronary artery disease) Hyperlipidemia DVT (deep vein thrombosis) in Cholecystectomy planned Stroke History of DVT (deep vein thrombosis) GERD (gastroesophageal reflux disease) Essential hypertension Idiopathic Parkinsonism ITZ (obstructive sleep apnea) Nausea Constipation by delayed colonic transit Muscle spasm Surgical History (Updated 03/30/25 @ 15:01 by Jennie Hahn MD) Hx of cholecystectomy S/P laparoscopic sleeve gastrectomy S/P laparoscopic sleeve gastrectomy S/P endoscopy S/P colonoscopy S/P hysterectomy with oophorectomy (Unknown) S/P appendectomy Family History (Updated 03/30/25 @ 15:02 by Jennie Hahn MD) Father No problems noted. Mother Hypertension Kidney malignancy Social History Household Members: Family Housing: House Alcohol intake: never Patient Tobacco Use Status: Former Tobacco user Tobacco use type: Cigarette e-Cigarette/Vaping Use: Never Used Second Hand Smoke Exposure: No service: No Current occupational status: disabled Cognitive needs: Yes Hearing needs: No Vision needs: No Questionnaire PHQ-9 Over the last 2 weeks, how often have you been bothered by any of the following problems? 1. Little interest or pleasure in doing things: several days 2. Feeling down, depressed, or hopeless: not at all 3. Trouble falling or staying asleep, or sleeping too much: not at all 4. Feeling tired or having little energy: not at all 5. Poor appetite or overeating: not at all 6. Feeling bad about yourself - or that you are a failure or have let yourself or your family down: not at all 7. Trouble concentrating on things, such as reading the newspaper or watching television: not at all 8. Moving or speaking so slowly that other people could have noticed. Or the opposite - being so fidgety or restless that you have been moving around a lot more than usual: not at all 9. Thoughts that you would be better off or of hurting yourself in some way: not at all Total score: 1 Depression Screening Interpretation: Positive Depression Screening Follow-up: Existing condition, In treatment and Follow-up Visit Requested Depression Screening Done: Yes 22451 - PHQ-9 Billing: Yes Source: Developed by Drs. Ahsan Howard, Delaney Morales, Cedrick Mcknight and colleagues, with an educational kobe from [employer]. Thrive Questionnaire Date Thrive assessed: 03/30/25 I am a: Patient What is your living situation today?: I choose not to answer this question Within the past 12 months, did the food you bought not last and you didn't have the money to get more?: I choose not to answer this question Within the past 12 months, did you worry whether your food would run out before you got money to buy more?: I choose not to answer this question Do you have trouble paying for medicines?: I choose not to answer this question Do you have trouble getting transportation to medical appointments?: I choose not to answer this question Do you have trouble paying your heating and electricity bill?: I choose not to answer this question Do you have trouble taking care of your child, family member or friend?: I choose not to answer this question Do you have trouble with day-to-day activities such as bathing, preparing meals, shopping, managing finances, etc.?: I choose not to answer this question Are you currently unemployed and looking for a job?: I choose not to answer this question Are you interested in more education?: I choose not to answer this question Please select the resources that you would like help with: None Currently or been in a relationship where the following occur: I choose not to answer THRIVE Score: 0 AUDIT C Alcohol Use Questionnaire (AUDIT-C) 1. How often do you have a drink containing alcohol?: Never Total Score: 0 Score Reviewed/Action Taken: No KANCHAN-7 AMB Questionnaire KANCHAN-7 Date KANCHAN - 7 assessed: 03/30/25 Feeling nervous, anxious, or on edge: 0 = Not at all Not being able to stop or control worryin = Not at all Worrying too much about different things: 0 = Not at all Trouble relaxin = Not at all Being so restless that it is hard to sit still: 0 = Not at all Becoming easily annoyed or irritable: 0 = Not at all Feeling afraid as if something awful might happen: 0 = Not at all Total KANCHAN-7 score (0-4 normal; 5-9 mild; 10-14 moderate; 15-21 severe): 0 Source: Developed by Drs. Ahsan Howard, Delaney Morales, Cedrick Mcknight and colleagues, with an educational kobe from [employer]. KANCHAN-7 Assessment Billing KANCHAN-7 Assessment Tool: KANCHAN-7 Assessment 36118 Review of Systems Const All systems reviewed & are unremarkable except as noted in HPI and below Card Denies chest pain at rest, Denies chest pain with activity, Denies edema, Denies irregular heart rhythm, Denies claudication, Denies dyspnea, Denies dyspnea on exertion, Denies orthopnea, Denies paroxysmal nocturnal dyspnea and Denies slow heart rate Resp Denies cough, Denies dyspnea and Denies dyspnea on exertion GI Denies abdominal pain, Denies change in bowel habits, Denies excessive flatus, Denies nausea and Denies vomiting Denies urinary incontinence, Denies urinary hesitancy and Denies urinary urgency Musc Denies abnormal gait, Denies atrophy, Denies deformity, Reports arthralgias and Denies limited range of motion Skin/Breast Denies bleeding lesions, Denies changing lesions, Reports lesions and Denies rash Neuro Denies abnormal gait, Denies behavioral changes, Denies confusion and Denies lack of coordination Psych Denies behavioral changes and Denies confusion Physical exam (Primary Care) Vital Signs: Last Vital Signs BP 130/82 03/30/25 14:38 BMI result Body Mass Index 31.6 BMI Assessment/Plan discussion: High BMI High, discussed plan: lifestyle, weight reduction, dietary and physical activity Tobacco/Smoking Status: Tobacco use Status Tobacco use date assessed 03/30/25 03/30/25 14:44 Patient Tobacco Use Status Former Tobacco user 03/30/25 14:44 Tobacco use type Cigarette 03/30/25 14:44 e-Cigarette/Vaping Use Never Used 03/30/25 14:44 PHQ-9: PHQ-9 Score PHQ-9: Total score 1 03/30/25 15:14 Depression Screening Interpretation: Positive Depression Screening Follow-up: Existing condition, In treatment and Follow-up Visit Requested Thrive Assessment: Date of Thrive Assessment Date Thrive assessed 03/30/25 03/30/25 14:44 Currently or been in a relationship where the following occur: I choose not to answer Const General: No confusion Orientation/consciousness: patient oriented x3 and No confusion HENMT Head: Yes normal to inspection, Yes normocephalic and Yes atraumatic Ears: external ears normal Eyes General: appearance normal, both eyes and all related structures Eyelids: Yes eyelids normal Conjunctivae: conjunctivae normal Neck Neck: Yes normal visual inspection and Yes supple Resp Effort & Inspection: normal respiratory effort Auscultation: clear to auscultation bilaterally Cardio Jugular venous distension: no JVD Rate: regular rate Rhythm: regular rhythm Heart sounds: S1 normal heart sound present and S2 normal heart sound present GI Inspection: Yes normal to inspection Palpation (GI): Soft to palpation and nontender Auscultation: normal bowel sounds Skin Lesions: lesion noted (erythema in right side of neck) Neuro General: patient oriented x3 and No confusion Gait exam (Neuro): Shuffling gait present Extrem General: Yes full ROM Psych Appearance: grossly normal Immunizations pneumoc 20-susan conj-dip cr(PF) 0.5 mL IM syringe Performing Provider: Jennie Hahn MD [place] [facility] Administered by: CONSTANCE Conteh on 03/30/25 15:14 Dose Route Admin Location Dispensed Lot Number Expiration Date [facility] Car Top Bolter 0.5 mL IM Right Deltoid 0.5 mL [id number] 03/24/26 [place] [facility] Total Dispensed Waste 0.5 mL 0 % VIS Given Date VIS Provided VIS Publication Date 03/30/25 Single Vaccine 25 Eligibility Eligibility Date Funding Source Not [facility] Eligible 03/30/25 Private Coding Level of Care Code Est Pt Level 3 (36382) Est Pt Prev Care >65y(21669) Diagnoses Physical exam Z00.00 Idiopathic Parkinsonism G20 Right hip pain M25.551 Obese E66.9 Chronic deep vein thrombosis (DVT) of lower extremity, unspecified laterality, unspecified vein I82.509 DVT location: lower extremity Affected thrombotic vein of extremity: unspecified vein of extremity Chronicity: chronic Laterality: unspecified laterality Daytime somnolence R40.0 Skin lesion L98.9 Additional Codes KANCHAN-7 Assessment Billing - KANCHAN-7 Assessment Tool: KANCHAN-7 Assessment 54362 ([id number]) PHQ-9 - 66656 - PHQ-9 Billing: Yes ([id number]) Time Spent (min) 33 Assessment & Plan Assessment & Plan (1) Physical exam: Code(s): Z00.00 - Encounter for general adult medical examination without abnormal findings Category: Medical (2) Idiopathic Parkinsonism: Code(s): G20 - Parkinson's disease Category: Medical (3) Right hip pain: Code(s): M25.551 - Pain in right hip Category: Medical (4) Obese: Code(s): E66.9 - Obesity, unspecified Category: Medical (5) Deep vein thrombosis: Code(s): I82.409 - Acute embolism and thrombosis of unspecified deep veins of unspecified lower extremity Category: Medical Qualifiers: DVT location: lower extremity Affected thrombotic vein of extremity: unspecified vein of extremity Chronicity: chronic Laterality: unspecified laterality Qualified Code(s): I82.509 - Chronic embolism and thrombosis of unspecified deep veins of unspecified lower extremity (6) Daytime somnolence: Code(s): R40.0 - Somnolence Category: Medical (7) Skin lesion: Code(s): L98.9 - Disorder of the skin and subcutaneous tissue, unspecified Category: Medical Plan The patient will be referred to a manager quality improvement for weight management due to her obesity, with a BMI over 30. She will also be referred to dermatology for evaluation of the non-pruritic rash on the right side of her neck, which has been present since August. Preventative care measures include scheduling a bone densitometry and mammography, as well as a colonoscopy due to inadequate preparation in 2016. Patient was informed and verbally consented to the use of an ambient scribe for clinic note documentation during this visit. Orders: Orders RT home sleep study Today R40.0 - Somnolence Pneumococcal 20 Immunization Today Z23 - Encounter for immunization Lipid Panel Today E78.5 - Hyperlipidemia, unspecified Comprehensive Met. Panel Today Z00.00 - Encounter for general adult medical examination without abnormal findings MM tomosynthesis screening BI Today Z12.31 - Encounter for screening mammogram for malignant neoplasm of breast XR DEXA axial skeleton Today Z78.0 - Asymptomatic menopausal state XR hip RT min 2V Today M25.551 - Pain in right hip Referrals Medical Weight Management Referral E66.9 - Obesity, unspecified Open Access Screening Colonoscopy Referral Z12.12 - Encounter for screening for malignant neoplasm of rectum Dermatology Referral L98.9 - Disorder of the skin and subcutaneous tissue, unspecified Medications: New betamethasone valerate 0.1% 1 appl topical DAILY PRN 15 grams 1RF skin irritation 2 weeks L98.9 - Disorder of the skin and subcutaneous tissue, unspecified
[2025-03-30 14:38] VITALS: BP 130/82; BMI 31.6
--- OUTSIDE RECORDS SUMMARY | 2025-03-30 14:45 | XMS_ITS | Clinical Summary ---
Author Organization 175 [facility] Address [address] [place] [address] Phone Care Team Providers Care Supervisor Of Way Name Role Phone Physician, Pcp Unknown Primary Care Provider Matilda vailable Allergies Active Allergy Reactions Criticality Noted Date Comments Lidocaine 12/29/2024 Medications amantadine (SYMMETREL) 100 mg capsule 12/02/2024 Active amitriptyline (ELAVIL) 100 mg tablet 12/02/2024 Active atorvastatin (LIPITOR) 40 mg tablet 12/02/2024 Active benztropine (COGENTIN) 0.5 mg tablet 12/02/2024 Active buPROPion XL (WELLBUTRIN XL) 300 mg 24 hr tablet 12/11/2024 Active clonazePAM (KlonoPIN) 0.5 mg tablet 12/22/2024 Active donepeziL (ARICEPT) 10 mg tablet 12/02/2024 Active ferrous sulfate 325 mg (65 mg elemental iron) tablet Take 1 tablet (325 mg total) by mouth 1 (one) time each day. 10/23/2024 Active hydroCHLOROthia zide (HYDRODIURIL) 25 mg tablet 12/02/2024 Active lisinopriL (PRINIVIL,ZESTR IL) 5 mg tablet 12/02/2024 Act jammie oxyCODONE-aceta minophen (PERCOCET) 5-325 mg per tablet Take 1 tablet by mouth every 8 (eight) hours if needed. for pain Max Daily Amount: 3 tablets 12/22/2024 Active Xarelto 20 mg tablet 12/02/2024 Active zolpidem (AMBIEN) 5 mg tablet 12/22/2024 Active Encounters Date Type Department Care Team Description 12/29/2024 3:00 PM EDT Office Visit Orthopedic Surgery [facility] [address] [address] Panchito Shannon DPM Dermatophytosis of nail (Primary Dx); Peripheral venous insufficiency; Bilateral femoral artery stenosis (CMS/HCC V24) from Last 3 Months Social History Tobacco Use Types Packs/Day Years Used Date Smoking Tobacco: Never Assessed Comments Unknown Sex and Gender Information Value Date Recorded Sex Assigned at Not on file Legal Sex Female 11:14 AM EST Gender Identity Not on file Sexual Orientation Not on file Last Filed Vital Signs Vital Sign Reading Time Taken Comments Blood Pressure - - Pulse - - Temperature - - Respiratory Rate - - Oxygen Saturation - - Inhaled Oxygen Concentration - - Weight 87.1 kg (192 lb) 12/29/2024 3:17 PM EDT Height 165.1 cm (5' 5 ) 12/29/2024 3:17 PM EDT Body Mass Index 31.95 12/29/2024 3:17 PM EDT Plan of Treatment Upcoming Encounters Date Type Department Care Team (Late st Contact Info) Description 04/07/2025 2:45 PM EDT Office Visit Orthopedic Surgery - [place] [address] [address] Panchito Shannon DPM [address] [address] Health Maintenance Due Date Last Done Comments Breast Cancer Screening 1960 Cervical Cancer Screening: P ap Smear 1980 Zoster Vaccines (1 of 2) 2009 Pneumococcal Vaccine: 50+ Years (2 of 2 - PCV) 09/02/2020 09/02/2019, 12/18/2014 COVID-19 Vaccine (2023-2 5 season) 2024 06/27/2021, 06/06/2021 Cholesterol Screening (Lipid Panel) 08/06/2024 Colorectal Cancer Screening: Colonoscopy 08/06/2024 Depression Screening 08/06/2024 Hepatitis C Screening 08/06/2024 Osteoporosis Screening (Bone Density Screening) 08/06/2024 Social Influencers of Health Screening 08/06/2024 Falls Risk Assessment 2024 Influenza Vaccine (#1) 2025 9, 06/25/2018 DTaP,Tdap,and Td Vaccines (2 - Td or Tdap) 01/02/2029 01/02/2019 RSV Immunization Adult Patients (1 - 1-dose 75+ series) 2034 Pneumococcal Vaccine: Pediatrics (0 to 5 Years) and At-Risk Patients (6 to 49 Years) Aged Out 09/02/2019, 12/18/2014 No longer eligible based on patient's age to complete this topic HIB Vaccines Aged Out No longer eligi ble based on patient's age to complete this topic HPV Vaccines Aged Out No longer eligi ble based on patient's age to complete this topic Hepatitis A Vaccines Aged Out No long er eligible based on patient's age to complete this topic Hepatitis B Vaccines Aged Out No long er eligible based on patient's age to complete this topic IPV Vaccines Aged Out No longer eligi ble based on patient's age to complete this topic MMR Vaccines Aged Out No longer eligi ble based on patient's age to complete this topic Meningococcal ACWY Vaccine Aged Out N o longer eligible based on patient's age to complete this topic Meningococcal B Vaccine Aged Out No l onger eligible based on patient's age to complete this topic RSV Immunization Patients Under 20 months Aged Out No longer eligible b ased on patient's age to complete this topic Varicella Vaccines Aged Out No longer eligible based on patient's age to complete this topic Insurance [place] - [place] [facility] Member Subscriber Plan / Payer (Ef fective 2020-Present) Name:ANGELINA CARDONA Relation to Subscriber:Self Name:Angelina Muhammad Payer ID:[id number] Group ID:[id number] Type:Not on file Address: [facility] [address] [id number] Of [address] Relationship Specialty Start Date End Date Physician, Pcp Unknown PCP - General 12/15/24
== END 2025-03-30 15:13 | disposition home or self-care (01) ==
LOC: HO.HMCH 14:17
PROVIDERS: PCP Internal Medicine; Visit Provider Internal Medicine
DX: Z00.00 Encounter for general adult medical examination without abnormal findings (principal); I82.509 Chronic embolism and thrombosis of unspecified deep veins of unspecified lower extremity; G20.C Parkinsonism, unspecified; E66.9 Obesity, unspecified; Z68.31 Body mass index [BMI] 31.0-31.9, adult; M25.551 Pain in right hip; R40.0 Somnolence; L98.9 Disorder of the skin and subcutaneous tissue, unspecified; Z23 Encounter for immunization

== ENCOUNTER → 2025-03-30 14:17 | Outpatient (BNVA) | payer OTHER, SELFPAY | PROVIDERS: PCP Internal Medicine; Visit Provider Internal Medicine | DX: Z00.00 Encounter for general adult medical examination without abnormal findings (principal); I10 Essential (primary) hypertension; E78.5 Hyperlipidemia, unspecified; G20.A1 Parkinson's disease without dyskinesia, without mention of fluctuations; M25.551 Pain in right hip; R40.0 Somnolence; L98.9 Disorder of the skin and subcutaneous tissue, unspecified; E66.9 Obesity, unspecified; Z23 Encounter for immunization; Z68.31 Body mass index [BMI] 31.0-31.9, adult; Z86.718 Personal history of other venous thrombosis and embolism | CPT/HCPCS: 90471; 90677; 96127; 99212; 99397 ==

== ENCOUNTER → 2025-06-25 11:26 | Outpatient (REF) | payer OTHER, SELFPAY ==
--- OUTSIDE RECORDS SUMMARY | 2002-03-25 20:00 | XMS_ITS | Continuity of Care Document ---
Author Organization luisa Jackson [facility] Address [address] [address],[address] [place] [address] Phone Care Team Providers Care Wire Drawing Die Maker Name Role Phone Sherita Wyman MD Unavailable [...] Date Provider Providers Copied on Encounter luisa [facility], [address] [place] [address], [id number], tel:[phone] Converted Locations No Information 2 Zamzam Magallon. [address] [place] [address], [id number] , [place]. tel:[phone] Donald Jackson [facility], [address] [place] [address],[address], [id number], tel:[phone] [facility] LumbagoEdema 2 DOttavio Sherita. [address] [place] [address], [id number] , [place]. tel:[phone] luisa [facility], [address] [facility] [address], [place], [place], [id number], [place] tel:[phone] [facility] Unspecified gastritis and gastroduodeniti s (without mention of hemorrhage) 1 DOttavio Sherita. [address] [place] [address], [id number] , [place]. tel:[phone] luisa [facility], [address] [facility] [address], [place], [place], [id number], [place] tel:[phone] [facility] Benign essential hypertension 1 DOttavio Sherita. [address] [place] [address], [id number] , [place]. tel:[phone] [facility], [address] [place] [address],[address] [facility], [place], [place], [id number], [place] tel:[phone] [facility] CHRONIC OBSTRUCTIVE ASTHMA, UNSPECIFIED 1 DOttavio Sherita. [address] [place] [address], [id number] , [place]. tel:[phone] luisa [facility], [address] [facility] [address], [place], [place], [id number], [place] tel:[phone] Converted Locations Nondependent tobacco use disorderTension headache 1 Z-Convert ed Provider. . luisa [facility], [address] [facility] [address], [place], [place], [id number], [place] tel:[phone] Converted Locations Urge incontinence 6 1 Z-Convert ed Provider. . [facility], [address] [address],[address], [place], [place], [id number], [place] tel:[phone] Converted Locations Diabetes mellitus without mention of complication, type II or unspecified type, not stated as uncontrolled 3200 1 Z-Convert ed Provider. . Family History Family Member Type Diagnosis Age At Onset No Information Payers Payer name Insurance type Covered democrat ID Authoriza tisandy(s) No Information Social History [...]
--- OUTSIDE RECORDS SUMMARY | 2012-02-05 | XMS_ITS | Encounter Summary ---
Author Organization [facility] Address [address] [place] [address] Phone Care Team Providers Care Information Delivery Analyst Name Role Phone Unavailable Primary Care Provider Unavailabl e Reason for Visit * Auth/Cert (Routine) Specialty Diagnoses / Procedures Referred By Nelson patel Referred To Contact Diagnoses Abdominal mass LLQ abdominal pain Referral ID Status Reason Start Date Expiration Date Visits Re quested Visits Authorized [id number] 1 1 Encounter Details Date Type Department Care Team (Late st Contact Info) Description 02/05/2012 Hospital Encounter [facility],Outside Imaging [address] [place] [address] Unknown, Unknown, Social History Tobacco Use Types Packs/Day Years Used Date Smoking Tobacco: Former Cigarettes Smokeless Tobacco: Never Home Health Assessment: Transportation Answer Date Recorded Lack of Transportation (Medical) No 07/09/2024 Lack of Transportation (Non-Medical) No 07/09/2024 Patient Unable or Declines to Respond No 07/09/2024 Education Answer Date Recorded Are you interested in more education? Not on michelle e 05/15/2024 Are you concerned about learning? Not on file 05/15/2024 No 05/15/2024 No 05/15/2024 Digital Access Answer Date Recorded No 05/15/2024 No 05/15/2024 Reliable internet access at home? Not on file 05/15/2024 Device with a working camera? Not on file Intimate Partner Violence Answer Date R ecorded Are you denied basic needs s uch as food, clothing, or medical care? No 05/14/2024 In the past 12 months have y ou been in a relationship with a person who hurts, threatens, or tries to control you? No 05/14/2024 Are you denied basic needs s uch as food, clothing, or medical care? No 05/14/2024 In the past 12 months have y ou been in a relationship with a person who hurts, threatens, or tries to control you? No 05/14/2024 Comments Unknown Sex and Gender Information Value Date Recorded Sex Assigned at Not on file Legal Sex Female 7:33 PM EDT Gender Identity Not on file Sexual Orientation Not on file documented as of this encounter Functional Status * Calculated C-SSRS Risk Score (Lifetime/Recent) Answer Date of Assessment Author No Risk Indicated 05/14/2024 8:36 PM EDT Melina Mcneil RN * [place] Suicide Severity Rating Scale (Screener/Recent Self-Report) Question Answer Date of Assessment Author 1. Wish to be (Past 1 Month) No 024 8:36 PM EDT Melina Veloz RN 2. Non-Specific Active Suici alessandro Thoughts (Past 1 Month) No 05/14/2024 8:36 PM EDT Kvng Veloz ra, RN 6. Suicidal Behavior (Lifetime) No 8:36 PM EDT Melina Veloz RN documented as of this encounter Plan of Treatment Not on file documented as of this encounter Procedures Procedure Name Priority Date/Time Associated Diagnosis Comments CT ABDOMEN/PELVIS OUTSIDE (NO INTERPRETATION) Routine 02/05/2012 12:00 AM EDT documented in this encounter Results * CT Abdomen/Pelvis Outside (No Interpretation) (02/05/2012 12:00 AM EDT) Narrative Record, 05/16/2024 11:11 AM EDT This study is for PACS storage only and not for interpretation. Procedure Note Record, 05/16/2024 This study is for PACS storage only and not for interpretation. us Unknown Unknown MD PENA OUTSIDE IMAGING W/OUT INT ERPRETATION Final Result documented in this encounter Visit Diagnoses Not on filedocumented in this encounter Additional Source Comments The information contained in this document represents components of the legal health record. It is not the complete legal health record.[facility]
--- OUTSIDE RECORDS SUMMARY | 2015-02-16 09:14 | XMS_ITS | Continuity of Care Document ---
Author Organization [facility] Address [address] [place] [phone] Phone Care Team Providers Care Jboss Architect Name Role Phone Chepe Woo Unavailable Unavailabl e Allergies, Adverse Reactions, Alerts Substance Reaction Status Criticality aspirin Active No Information aspirin Active No Information aspirin Active No Information aspirin Active No Information aspirin Active No Information lidocaine Angioedema Active No Information latex Itching Active No Information Medications Medication Instructions Dosage Effective Dates (start - stop) Status Comments Klonopin 0.5 mg tablet take 1 tablet by ORAL route every day 0.5 MG - Active weaning off diltiazem ER 180 mg capsule,extended release take 1 capsule by oral route every day 180 MG - Active Ultram 50 mg tablet 1 tab PO BID - Act jammie Antivert 25 mg tablet take 1 tablet by oral route 3 times every day as needed - Active bupropion HCl SR 150 mg tablet,sustained-re lease take 1 tablet by oral route 2 times every day at 9am and 2pm 150 MG - Active discontinue prio r Buprioprion prescription trazodone 100 mg tablet take 1 tablet by oral route every day after meals 100 MG - Active lithium carbonate ER 450 mg tablet,extended release take 1 Tablet by ORAL route every bedtime 450 MG - Active discontinue prio r lithium prescription pantoprazole 40 mg tablet,delayed release take 1 tablet by oral route every day 40 MG - Active enalapril maleate 10 mg tablet take 1 tablet by oral route 2 times every day 10 MG - Active albuterol sulfate HFA 90 mcg/actuation aerosol inhaler inhale 2 puff by Inhalation route 4 - 6 hours as needed 2 puff - Active Coumadin 2 mg tablet 1 tab po sunday, sunday and sunday - Active Coumadin 10 mg tablet take 1 tablet by oral route every day - Active gabapentin 300 mg capsule take 1 capsule by oral route every bedtime 300 MG - Active metformin 1,000 mg tablet take 1 Tablet by Oral route daily - Active Coumadin 7.5 mg tablet take 1 tablet by oral route every day - Active Coumadin 5 mg tablet take 2 tablets qhs and recheck PT/INR on 06/29/14. - Active atorvastatin 40 mg tablet take 1 tablet by oral route every day 40 MG - Active D/C pravastatin Calcium 500 With D 500 mg (1,250 mg)-400 unit Tab take 1 by Oral route every 12 hours 1 - Active Spiriva with HandiHaler 18 mcg & inhalation Caps inhale 1 capsule (18MCG) by inhalation route every day - Active Flovent HFA 110 mcg/Actuation Aerosol Inhaler inhale 1 puff (110MCG) by inhalation route 2 times every day - Active Catapres 0.1 mg tablet take 1 tablet by oral route 2 times every day - Active Procedures Procedure Date OFFICE VISIT ESTAB PT 25 MIN Promethazine hcl injection Ketorolac tromethamine inj OFFICE VISIT ESTAB PT 25 MIN Indiv.Psychotherapy 45 Minutes 15 OFFICE VISIT ESTAB PT 25 MIN GLUCOSE BLOOD TEST (medicare) 4 OFFICE VISIT ESTAB PT 25 MIN Indiv.Psychotherapy 60 Minutes 14 Indiv. Diag. Evaluation (Physician) Indiv.Psychotherapy 60 Minutes 14 GLUCOSE BLOOD TEST (medicare) 4 OFFICE VISIT ESTAB PT 25 MIN Indiv.Psychotherapy 60 Minutes 14 Indiv.Psychotherapy 45 Minutes 14 GLUCOSE BLOOD TEST (medicare) 4 HBA 1C LIPID PANEL PREVENT VISIT EST 40-64 Psychiatric Diagnostic Evaluation ( Non ) Behavioral Health CoVisit With Medical S OFFICE VISIT ESTAB PT 40 MIN OFFICE VISIT ESTAB PT 25 MIN Family Resource Counselor GLUCOSE,FINGERSTICK OFFICE VISIT ESTAB PT 15 MIN GLUCOSE,FINGERSTICK GLUCOSE,FINGERSTICK HEMOGLOBIN; GLYCOSYLATED OFFICE VISIT ESTAB PT 25 MIN GLUCOSE,FINGERSTICK OFFICE VISIT ESTAB PT 15 MIN OFFICE VISIT ESTAB PT 15 MIN GLUCOSE,FINGERSTICK OFFICE VISIT ESTAB PT 25 MIN OFFICE VISIT ESTAB PT 25 MIN OFFICE VISIT ESTAB PT 25 MIN GLUCOSE,FINGERSTICK GLUCOSE,FINGERSTICK OFFICE VISIT ESTAB PT 25 MIN GLUCOSE,FINGERSTICK OFFICE VISIT ESTAB PT 25 MIN GLUCOSE,FINGERSTICK HEMOGLOBIN; GLYCOSYLATED MICROALBUMIN, SEMIQUANT OFFICE VISIT ESTAB PT 25 MIN GLUCOSE,FINGERSTICK OFFICE VISIT ESTAB PT 25 MIN GLUCOSE,FINGERSTICK OFFICE VISIT ESTAB PT 25 MIN Limit Oral Exam Radiograph Frst Film Dental panoramic film Limit Oral Exam Radiograph Frst Film Schedule Dental 45 Appointment Schedule Dental 45 Appointment Schedule Hygienist 30 Appointment Extraction Erupted Tooth or Exposed Root GLUCOSE,FINGERSTICK HEMOGLOBIN; GLYCOSYLATED OFFICE VISIT ESTAB PT 25 MIN Diab manage trn per indiv GLUCOSE,FINGERSTICK OFFICE VISIT ESTAB PT 25 MIN GLUCOSE,FINGERSTICK OFFICE VISIT ESTAB PT 25 MIN PREVENT VISIT EST 40-64 Diab manage trn per indiv GLUCOSE,FINGERSTICK HEMOGLOBIN; GLYCOSYLATED OFFICE VISIT ESTAB PT 15 MIN GLUCOSE,FINGERSTICK URINE DIP NON-AUTO WITHOUT MICRO 2010 OFFICE VISIT ESTAB PT 25 MIN Diab manage trn per indiv GLUCOSE,FINGERSTICK OFFICE VISIT ESTAB PT 25 MIN GLUCOSE,FINGERSTICK OFFICE VISIT ESTAB PT 25 MIN GLUCOSE,FINGERSTICK OFFICE VISIT ESTAB PT 25 MIN PULSE OXIMETRY GLUCOSE,FINGERSTICK OFFICE VISIT ESTAB PT 25 MIN Diab manage trn per indiv Diab manage trn per indiv PULSE OXIMETRY GLUCOSE,FINGERSTICK OFFICE VISIT ESTAB PT 40 MIN Prophylaxis - Adult Schedule - 6 Month Cleaning Appointment GLUCOSE,FINGERSTICK OFFICE VISIT ESTAB PT 25 MIN URINE DIP NON-AUTO WITHOUT MICRO 2010 GLUCOSE,FINGERSTICK OFFICE VISIT ESTAB PT 15 MIN OFFICE VISIT ESTAB PT 15 MIN OFFICE VISIT ESTAB PT 25 MIN GLUCOSE,FINGERSTICK PULSE OXIMETRY OFFICE VISIT ESTAB PT 25 MIN GLUCOSE,FINGERSTICK HEMOGLOBIN; GLYCOSYLATED OFFICE VISIT ESTAB PT 25 MIN GLUCOSE,FINGERSTICK OFFICE VISIT ESTAB PT 25 MIN GLUCOSE,FINGERSTICK URINE DIP NON-AUTO WITHOUT MICRO 2010 OFFICE VISIT ESTAB PT 25 MIN [facility] Appointment Resin 4+ Surfaces/Incisal GLUCOSE,FINGERSTICK OFFICE VISIT ESTAB PT 25 MIN Sedative Filling Schedule Filling Appointment Schedule - Cleaning Appointment 011 Oral Surgery Appointment - 30 Minutes Ma Comprehensve Oral Exam Dental panoramic film GLUCOSE,FINGERSTICK OFFICE VISIT ESTAB PT 15 MIN Schedule FMX Appointment Schedule Filling Appointment Oral Surgery Appointment - 30 Minutes Limit Oral Exam GLUCOSE,FINGERSTICK HEMOGLOBIN; GLYCOSYLATED PREVENT VISIT NEW PT 40-64 INFLUENZA VACCINE - Child State Supplied IMMUNIZATION ADMIN 1ST VACCINE 11 PNEUMOCOCCAL VAC - State Supplied IMMUNIZATION ADMIN ADDITIONAL VACCINE TDAP - State Supplied IMMUNIZATION ADMIN ADDITIONAL VACCINE URINE DIP NON-AUTO WITHOUT MICRO 2010 MICROALBUMIN, SEMIQUANT Advance Directives Directive Yes / No Effective Date File Name No Information Encounters Encounter Description Practice Location Reason(s) For Visit Diagnoses Date Provider Providers Copied on Encounter [facility] [address] [place] [address], [id number] , tel:[phone] [facility] No Information [place] Mo. [address] [place], [address], [place]. tel:[phone] OFFICE VISIT ESTAB PT 25 MIN [facility] [address] [place] [address], [id number] , tel:[phone] [facility] Hypertension (chief complaint) MigraineAnxi etyHypertens ion, Unspecified 5 Boubacar Rivero. [address] [place], [address], . tel:[phone] Referring Provider: Josefa Hamlin, [address] [place], [address]. tel:[phone] OFFICE VISIT ESTAB PT 25 MIN [facility] [address] [place] [address], [id number] , [place] tel: [phone] [facility] Bipolar I disorder, most recent episode (or current) depressed, unspecified 5 Abe Walsh. [address] [place], [address], [place]. tel:[phone] Indiv.Psycho therapy 45 Minutes [employer] [address] [place] [address], [id number] , [place] tel: [facility] [employer] [facility] Bipolar I disorder, most recent episode (or current) depressed, unspecified 5 Carlton Charlesia. [address] [place], [address], [place]. tel:[phone] [facility] [address] [place] [address], [id number] , [place] tel: [facility] No Information 5 Galinatti Chepe. [address] [place], [address], [place]. tel:[phone] OFFICE VISIT ESTAB PT 25 MIN [employer] [address] [place] [address], [id number] , [place] tel: [phone] [facility] Earache (chief complaint) Earache on rightVertigo 4 Barbara Ly. [address], [place], [id number], [place]. tel:[phone] Referring Provider: Malachi valenzuela, [address] [place], [address]. tel:[phone] [facility] [address] [place] [address], [id number] , [place] tel: [phone] [facility] No Information 4 Galinatti Chepe. [address] [place], [address], . tel:[phone] OFFICE VISIT ESTAB PT 25 MIN [facility] [address] [place] [address], [id number] , tel: [facility] Diabetes (chief complaint)Dep ression (chief complaint)hyp ertension (chief complaint) Bipolar I disorder, most recent episode (or current) depressed, unspecifiedH ypertension, UnspecifiedD iabetes Mellitus Type 2, Uncomplicate dSleep apneaSkin growth Dec-1 2-201 4 Galinai Chepe. [address], [place], [facility], [place]. tel:[phone] [facility], [address] [place] [address], [id number] , tel: [facility] No Information Dec-0 5 4 Galinai Chepe. [address], [place], [facility], [place]. tel:[phone] Indiv.Psycho therapy 60 Minutes [facility] [address] [place] [address], [id number] , tel: [phone] [facility] [employer] [facility] Bipolar I disorder, most recent episode (or current) depressed, unspecified Dec-0 4 4 Vincent Jessica. [address], [facility], [place]. tel: [phone] [facility], [address] [place] [address], [id number] , tel: [phone] [facility] No Information Dec-0 4 [facility] [address], [facility], [place]. tel:[phone] Indiv. Diag. Evaluation (Physician) [facility] [address] [place] [address], [id number] , tel: [phone] [facility] [employer] [facility] Bipolar I disorder, most recent episode (or current) depressed, unspecified Jul- 4- 4 Abe Walsh. [address] [place], [address], [place]. tel:[phone] Indiv.Psycho therapy 60 Minutes [employer] [address] [place], [place], [id number] , [place] tel: [phone] [facility] Anxiety 4 Carlton Lopez. [address] [place], [address], [place]. tel: [phone] [employer] [address], [place], [id number] , [place] tel: [phone] [facility] No Information 4 [place] Chepe. [address] [place], [address], [place]. tel: [phone] OFFICE VISIT ESTAB PT 25 MIN [employer] [address], [place], [id number] , [place] tel: [phone] [facility] Follow Up of Hypertension (chief complaint)dep ression (chief complaint) DepressionHy pertension, BenignAnkle pain, left 4 [place] Mo. [address] [place], [address], [place]. tel:[phone] Referring Provider: Chepe Boyle, [address] [place], [address]. tel: [phone] Indiv.Psycho therapy 60 Minutes [employer] [address], [place], [id number] , [place] tel: [phone] [facility] Anxiety 0 4 Carlton Lopez. [address] [place], [address], [place]. tel: [phone] Indiv.Psycho therapy 45 Minutes [employer] [address], [place], [id number] , [place] tel: [phone] [facility] Anxiety 4 Carlton Lopez. [address] [place], [address], [place]. tel:[phone] PREVENT VISIT EST 40-64 [facility] [address] [place] [address], [id number] , [place] tel:[phone] [facility] Preventive exam (chief complaint)dep ression (chief complaint)abd ominal pain (chief complaint) ROUTINE MEDICAL EXAMAbdomina l PainDiabetes Mellitus Type 2, Uncomplicate dObesityVeno us embolism and thrombosis of deep vessels of proximal lower extremityDep ression Jun- 6 4 Stefania Seaman. [address] [place], [address], [place]. tel:[phone] Referring Provider: Jurgen Aguiar, [address] [place], [address]. tel:[phone] [facility], [address] [place] [address], [id number] , [place] tel:[phone] [facility] No Information Oct-0 3-201 4 [facility]. [address] [place] [address], [id number], [place]. tel:[phone] Psychiatric Diagnostic Evaluation ( Non MD) [facility] [address] [place] [address], [id number] , [place] tel:[phone] [facility] Anxiety Jun-0 2-201 4 Carlton Lopez. [address] [place], [address], [place]. tel:[phone] [facility], [address] [place] [address], [id number] , [place] tel:[phone] [facility] Anxiety Sep-3 0-201 4 No Information OFFICE VISIT ESTAB PT 40 MIN [facility] [address] [place] [address], [id number] , [place] tel:[phone] [facility] Follow Up of Anxiety (chief complaint) Anxiety Sep-3 0-201 4 Elliott Alex. [address] [place] [address], [address], [place]. tel: [phone] Referring Provider: Abi Gallagher, [address] [place], [address]. tel: [phone] [facility] [address] [place] [address], [id number] , [place] tel: [phone] [facility] No Information Sep- 4 Stefania Seaman. [address] [place], [address], [place]. tel:[phone] OFFICE VISIT ESTAB PT 25 MIN [facility] [address] [place] [address], [id number] , [place] tel: [facility] Musculoskelet al pain (chief complaint) Knee pain, left Sep- 4 Zak Zabala. [address] [place], [address], [place]. tel:[phone] Referring Provider: Sagrario Crespo, [address] [place], [address]. tel:[phone] [facility] [address] [place] [address], [id number] , [place] tel: [phone] [facility]rati on - [facility] No Information Sep- [address] [place], [address], [place]. OFFICE VISIT ESTAB PT 15 MIN [facility] [address] [place] [address], [id number] , [place] tel: [phone] [facility] diabetes (chief complaint)kne e pain (chief complaint) Diabetes Mellitus Type 2, Uncomplicate dHypertensio n, BenignOther and unspecified hyperlipidem iaHX PULMONARY EMBOLISMDepr essionKnee pain, leftVisit for screening mammogramNoc turnal dyspnea Nov- 3 Rico Foreman. [address], [place], [id number], [place]. tel:[phone] [facility] [address] [place] [address], [id number] , [place] tel: [phone] [address] Depressive disorder, not elsewhere classifiedBe nign essential hypertension Diabetes mellitus without mention of complication ,Personal history of pulmonary embolismDepr essionHypert ension, BenignDiabet es Mellitus Type 2, Uncomplicate dHX PULMONARY EMBOLISM Nov-0 3 Ravi Neff. [address] [place], [place], [id number], [place]. tel: [phone] OFFICE VISIT ESTAB PT 25 MIN [facility] [address] [place] [address], [id number] , [place] tel: [phone] [facility] foot pain (chief complaint)dep ression (chief complaint) Plantar fascial fibromatosis Pain in limbPulmonar y Embolus, History ofDiabetes Mellitus Type 2, Uncomplicate dHypertensio n, BenignOther and unspecified hyperlipidem ia Jun-0 2 Rico Foreman. [address] [place] [address], [id number], [place]. tel: [phone] OFFICE VISIT ESTAB PT 15 MIN [facility] [address] [place] [address], [id number] , [place] tel: [phone] [facility] foot pain (chief complaint)elliot k pain (chief complaint) Inflammation of foot due to traumaCalf painPulmonar y Embolus, History of Sep-2 2 Rico Foreman. [address] [place] [address], [id number], [place]. tel: [phone] OFFICE VISIT ESTAB PT 15 MIN [employer] [address] [place] [address], [id number] , [place] tel: [phone] [address] foot pain (chief complaint) Foot trauma Sep-2 2 2 Rico Foreman. [address] [place] [address], [id number], [place]. tel: [phone] OFFICE VISIT ESTAB PT 25 MIN [facility] [address] [place] [address], [id number] , [place] tel: [phone] [facility] back pain (chief complaint) Other and unspecified disc disorder of lumbar regionPulmon aleksandra Embolus, History ofObesityDia betes Mellitus Type 2, Uncomplicate d 2 Rico Foreman. [address] [place] [address], [id number], [place]. tel: [phone] OFFICE VISIT ESTAB PT 25 MIN [employer] [address] [place] [address], [id number] , [place] tel: [phone] [facility] shoulder pain (chief complaint) LumbagoShoul sundeep pain, bilateral 2 Rico Foreman. [address] [place] [address], [id number], [place]. tel:[phone] OFFICE VISIT ESTAB PT 25 MIN [employer] [address] [place] [address], [id number] , [place] tel: [facility] diabetes (chief complaint)hip pain (chief complaint) Diabetes Mellitus Type 2, Uncomplicate dHypertensio n, UnspecifiedO ther and unspecified hyperlipidem iaOther and unspecified disc disorder of lumbar regionPulmon aleksandra Embolus, History ofFall with injuryHip pain, leftWrist pain, left 2 Rico Foreman. [address] [place] [address], [id number], [place]. tel:[phone] OFFICE VISIT ESTAB PT 25 MIN [facility] [address] [place] [address], [id number] , [place] tel: [facility] Lower back pain (chief complaint) Back pain with radiationLum bar disc diseaseHisto ry of DVT (deep vein thrombosis)U rinary incontinence Other functional disorder of bladder 2 Rico Foreman. [address] [place] [address], [id number], [place]. tel:[phone] OFFICE VISIT ESTAB PT 25 MIN [facility] [address] [place] [address], [id number] , [place] tel:[phone] [facility] diabetes (chief complaint)elliot k pain (chief complaint) Diabetes Mellitus Type 2, Uncomplicate dLumbagoGERD 2 Rico Foreman. [address] [place] [address], [id number], [place]. tel:[phone] OFFICE VISIT ESTAB PT 25 MIN [facility] [address] [place] [address], [id number] , [place] tel: [phone] [facility] diabetes (chief complaint)phl ebitis (chief complaint)elliot k pain (chief complaint) DMII WO CMP NT ST UNCNTRLumbag oPhlebitis and thrombophleb itis of unspecified siteVenous embolism and thrombosis of deep vessels of proximal lower extremity Dec-3 0-201 2 Rico Foreman. [address], [place], [id number], [place]. tel:[phone] OFFICE VISIT ESTAB PT 25 MIN [employer], [address] [place] [address], [id number] , [place] tel: [phone] [facility] lab test (chief complaint) Venous embolism and thrombosis of deep vessels of proximal lower extremityVen ous embolism and thrombosis of unspecified deep vessels of lower extremity Nov- 8 2 Beth Krish. [address], [place], [id number], [place]. tel: [phone] OFFICE VISIT ESTAB PT 25 MIN [facility] [address] [place] [address], [id number] , [place] tel: [phone] [facility] Leg leg pain (chief complaint) Diabetes Mellitus Type 2, Uncomplicate dCalf painSkin change Nov- 6 2 Rico Foreman. [address] [place] [address], [id number], [place]. tel:[phone] [facility], [address] [place] [address], [id number] , [place] tel: [phone] [facility] examination Nov-0 2- 2 No Information [facility] [address] [place] [address], [id number] , [place] tel: [phone] [facility] examination 201 2 Patience Hurley. [address] [place] [address], [address], [place]. tel:[phone] [facility] [address] [place] [address], [id number] , [place] tel: [phone] [facility] examination 2 No Information OFFICE VISIT ESTAB PT 25 MIN [facility] [address] [place] [address], [id number] , [place] tel: [phone] [facility] diabetes (chief complaint)elliot k pain (chief complaint) Diabetes Mellitus Type 2, Uncomplicate dOther and unspecified hyperlipidem iaLumbagoHyp ertension, BenignAbdomi nal PainVenous embolism and thrombosis of deep vessels of proximal lower extremity 2 Rico Ahsan. [address] [place] [address], [id number], [place]. tel:[phone] [facility], [address] [place] [address], [id number] , [place] tel: [phone] [facility] diabetes (chief complaint) Diabetes Mellitus Type 2, Uncomplicate d 2 Rico Foreman. [address] [place] [address], [id number], [place]. tel: [phone] Consulting Provider: Hayley Suresh. OFFICE VISIT ESTAB PT 25 MIN [facility], [address] [place] [address], [id number] , [place] tel: [phone] [facility] medication refill (chief complaint)elliot k pain (chief complaint) Diabetes Mellitus Type 2, Uncomplicate dBackache 2 Rico Foreman. [address] [place] [address], [id number], [place]. tel:[phone] [facility], [address] [place] [address], [id number] , [place] tel:+ [phone] [facility] Back pain with radiationBac kache 2 Rico Foreman. [address] [place] [address], [id number], [place]. tel:[phone] OFFICE VISIT ESTAB PT 25 MIN [employer], [address] [place] [address], [id number] , tel: [facility] back pain (chief complaint) Diabetes Mellitus Type 2, Uncomplicate dLumbagoDist urbance of skin sensationVen ous embolism and thrombosis of deep vessels of proximal lower extremity 1 Rico Foreman. [address] [place] [address], [id number], [place]. tel:[phone] PREVENT VISIT EST 40-64 [facility] [address] [place] [address], [id number] , tel: [facility] annual visit (chief complaint) Gynecologica l Examination 1 Tamir Farias. [address] [place] [address], [address], [place]. tel:[phone] [facility] [address] [place] [address], [id number] , tel: [facility] diabetes (chief complaint) Diabetes Mellitus Type 2, Uncomplicate d 1 Rico Foreman. [address] [place] [address], [id number], [place]. tel:[phone] Consulting Provider: Hayley Suresh. OFFICE VISIT ESTAB PT 15 MIN [facility] [address] [place] [address], [id number] , tel: [facility] back pain (chief complaint)jeanie betes (chief complaint) Diabetes Mellitus Type 2, Uncomplicate dGluteal painRight leg paresthesias 1 Rico Foreman. [address] [place] [address], [id number], [place]. tel:[phone] OFFICE VISIT ESTAB PT 25 MIN [facility] [address] [place] [address], [id number] , [place] tel: [facility] medication refill (chief complaint)ant icouagulation (chief complaint)elliot k pain (chief complaint)UTI (chief complaint) Venous embolism and thrombosis of deep vessels of proximal lower extremityDia betes Mellitus Type 2, Uncomplicate dHypertensio n, UnspecifiedL umbagoDysuri aUrinary frequency 1 Rico Foreman. [address] [place] [address], [id number], [place]. tel:[phone] [facility] [address] [place] [address], [id number] , [place] tel: [phone] [facility] diabetes (chief complaint) Diabetes Mellitus Type 2, Uncomplicate d 1 Sang Hayes. [address] [place] [address], [id number], [place]. tel:[phone] OFFICE VISIT ESTAB PT 25 MIN [employer] [address] [place] [address], [id number] , [place] tel: [phone] [facility] leg pain (chief complaint) Diabetes Mellitus Type 2, Uncomplicate dKnee pain, bilateralLum bagoVenous embolism and thrombosis of deep vessels of proximal lower extremity 1 Rico Foreman. [address] [place] [address], [id number], [place]. tel:[phone] [facility] [address] [place] [address], [id number] , [place] tel: [phone] [facility] Effusion of lower leg joint 1 Rico Foreman. [address] [place] [address], [id number], [place]. tel:[phone] OFFICE VISIT ESTAB PT 25 MIN [facility] [address] [place] [address], [id number] , [place] tel: [phone] [facility] knee pain (chief complaint) Diabetes Mellitus Type 2, Uncomplicate dKnee pain, leftKnee effusion, leftVenous embolism and thrombosis of deep vessels of proximal lower extremity 1 Rico Foreman. [address] [place] [address], [id number], [place]. tel:[phone] OFFICE VISIT ESTAB PT 25 MIN [facility] [address] [place] [address], [id number] , [place] tel: [phone] [facility] diabetes (chief complaint)wou nd (chief complaint) Diabetes Mellitus Type 2, Uncomplicate dUlcerationH ypertension, UnspecifiedO ther and unspecified hyperlipidem iaVenous embolism and thrombosis of deep vessels of proximal lower extremity 1 Rico Ahsan. [address] [place] [address], [id number], [place]. tel: [phone] OFFICE VISIT ESTAB PT 25 MIN [employer] [employer], [address] [place] [address], [id number] , [place] tel: [phone] [facility] asthma (chief complaint) Diabetes Mellitus Type 2, Uncomplicate dAsthma 1 Cullion Katheryn. [address] [place], [address], [place]. tel: [phone] [facility], [address] [place] [address], [id number] , [place] tel: [phone] [facility] diabetes (chief complaint) Diabetes Mellitus Type 2, Uncomplicate d 1 [facility]. [address], [place], [id number], [place]. tel: [phone] [facility], [address] [place] [address], [id number] , [place] tel: [phone] [facility] diabetes (chief complaint) Diabetes Mellitus Type 2, Uncomplicate d 1 [facility]. [address] [place] [address], [id number], [place]. tel: [phone] Consulting Provider: Hayley Suresh. OFFICE VISIT ESTAB PT 40 MIN [facility], [address] [place] [address], [id number] , [place] tel: [phone] [facility] asthma (chief complaint)cou madin Rx (chief complaint) Diabetes Mellitus Type 2, Uncomplicate dHypertensio n, UnspecifiedV enous embolism and thrombosis of unspecified deep vessels of lower extremityEnc ounter for therapeutic drug monitoring 1 Cullion Katheryn. [address] [place], [address], [place]. tel: [phone] [facility] [facility], [address] [place] [address], [id number] , tel: [phone] [facility] examination 1 Patrick Wilhelm. [address] [place], [address], . tel: [phone] OFFICE VISIT ESTAB PT 25 MIN Cuedd., [address] [place] [address], [id number] , [place] tel: [facility] diabetes (chief complaint) Diabetes Mellitus Type 2, Uncomplicate dMyalgia and myositis, unspecifiedU rinary Tract InfectionCel lulitis 1 Ravi Neff. [address] [place] [address], [id number], [place]. tel:[phone] OFFICE VISIT ESTAB PT 15 MIN Cuedd., [address] [place] [address], [id number] , tel: [facility] jont pain (chief complaint) Diabetes Mellitus Type 2, Uncomplicate dLumbagoHype rtension, UnspecifiedV enous embolism and thrombosis of unspecified deep vessels of lower extremityEnc ounter for therapeutic drug monitoring 1 Rico Foreman. [address] [place] [address], [id number], [place]. tel:[phone] OFFICE VISIT ESTAB PT 15 MIN Cuedd., [address] [place] [address], [id number] , [place] tel: [phone] [facility] discharged form hospital with DVT (chief complaint)con stipation (chief complaint) Diabetes Mellitus Type 2, Uncomplicate dHypertensio n, UnspecifiedO ther and unspecified hyperlipidem iaDVT, lower extremityAnt icoagulation management encounterCon stipationAst hma 1 Rico Foreman. [address] [place] [address], [id number], [place]. tel:[phone] OFFICE VISIT ESTAB PT 25 MIN Cuedd., [address] [place] [address], [id number] , [place] tel: [phone] [facility] diabetes (chief complaint)ast hma (chief complaint) Diabetes Mellitus Type 2, Uncomplicate dAsthmaHyper tension, UnspecifiedO ther and unspecified hyperlipidem ia 1 Rico Foreman. [address] [place] [address], [id number], [place]. tel:[phone] Cuedd., [address] [place] [address], [id number] , [place] tel: [phone] [facility] Dyspnea and respiratory abnormalitie sRespiratory Insufficienc y 1 Rico Foreman. [address] [place] [address], [id number], [place]. tel:[phone] OFFICE VISIT ESTAB PT 25 MIN Cuedd., [address] [place] [address], [id number] , [place] tel: [phone] [facility] asthma (chief complaint) Diabetes Mellitus Type 2, Uncomplicate dRespiratory Insufficienc yASTHMA, UNSPECIFIED TYPE, WITH (ACUTE) EXACERBATION GERDHyperten annabel, UnspecifiedO besity 1 [facility] Hayes. [address], [place], [id number], [place]. tel:[phone] Cuedd., [address] [place] [address], [id number] , [place] tel: [phone] [facility] ArthralgiaPa in in joint, site unspecified 1 Rico Foreman. [address] [place] [address], [id number], [place]. tel:[phone] OFFICE VISIT ESTAB PT 25 MIN Cuedd., [address] [place] [address], [id number] , [place] tel:[phone] [facility] Edema (chief complaint)Ank le pain (chief complaint) Diabetes Mellitus Type 2, Uncomplicate dEdemaKnee pain, leftAnkle pain, left 1 Rico Foreman. [address] [place] [address], [id number], [place]. tel:[phone] OFFICE VISIT ESTAB PT 25 MIN Cuedd., [address] [place] [address], [id number] , [place] tel: [facility] swelling foot and hands (chief complaint) Diabetes Mellitus Type 2, Uncomplicate dEdemaInflue nza with pneumoniaGER DHypertensio n, UnspecifiedL umbagoObesit y Dec- 1 [facility] Hayes. [address] [place] [address], [id number], [place]. tel: [phone] OFFICE VISIT ESTAB PT 25 MIN [facility], [address] [place] [address], [id number] , [place] tel: [facility] back pain (chief complaint)swe lling (chief complaint) Diabetes Mellitus Type 2, Uncomplicate dEdemaLumbag oVenous embolism and thrombosis of deep vessels of proximal lower extremityDec reased urination 1 Rico Foreman. [address] [place] [address], [id number], [place]. tel:[phone] [facility], [address] [place] [address], [id number] , [place] tel: [facility] History of GI BleedingVeno us embolism and thrombosis of deep vessels of proximal lower extremity Dec- 1 Rico Foreman. [address] [place] [address], [id number], [place]. tel: [phone] [facility], [address] [place] [address], [id number] , tel: [facility] No Information 1 [facility]. , [place], [address], [place]. [facility], [address] [place] [address], [id number] , tel: [phone] [facility] examination 1 No Information OFFICE VISIT ESTAB PT 25 MIN [facility], [address] [place] [address], [id number] , [place] tel: [phone] [facility] hx of DVT and PE (chief complaint)jeanie betes (chief complaint) Diabetes Mellitus Type 2, Uncomplicate dPulmonary Embolus, History ofHistory of GI BleedingHype rtension, UnspecifiedO ther and unspecified hyperlipidem ia 1 Rico Foreman. [address] [place] [address], [id number], . tel:[phone] [facility], [address] [place] [address], [id number] , tel: [phone] [facility] examination 1 No Information OFFICE VISIT ESTAB PT 15 MIN Cuedd., [address] [place] [address], [id number] , tel: [phone] [facility] diabetes (chief complaint) Diabetes Mellitus Type 2, Uncomplicate dHistory of GI bleedHistory of DVT (deep vein thrombosis)C onstipationU nspecified essential hypertension 1 Rico Foreman. [address] [place] [address], [id number], . tel:[phone] [facility], [address] [place] [address], [id number] , tel: [phone] [facility] examination 1 No Information PREVENT VISIT NEW PT 40-64 [facility], [address] [place] [address], [id number] , tel:[phone] [facility] physical exam (chief complaint) Routine Medical ExamUnspecif ied essential hypertension Diabetes Mellitus Type 2, Uncomplicate dHyperlipide juan NEC/NOSObesi tyDVT of deep femoral veinGERDLumb agoRoutine Medical Exam 1 Rico Foreman. [address] [place] [address], [id number], . tel:[phone] Family History Family Member Type Diagnosis Age At Onset Sister Problem (finding) hypertension 4 Sister Problem (finding) Alive and well Paternal grandmother Problem (finding) cancer of colon Mother Problem (finding) Diabetes mellitus Problem (finding) 3 Brother Problem (finding) Alive and well Paternal grandfather Problem (finding) cancer, skin Mother Problem (finding) hypertension Immunizations Vaccine Date Status Comments Flu (split) (3 yrs or older) administered Source: New Immunization Record Tdap administered Source: New Imm unization Record Pneumo (2 yrs or older)(PPV) administered Source: New Immunization Record Flu (split) (3 yrs or older) cancelled Source: New Immunization Record Payers Payer name Insurance type Covered republican ID Naun hernandez(s) Medicaid [id number] Social History Type Description Quantity Date Captured Comments Sex Female Smoking Status No Information Sexual Orientation Straight or heterosexual Chief Complaint And Reason For Visit No Information Reason For Referral Reason For Referral No Information Plan Of Treatment Date Type Action Status Goal Tobacco cessation counseling completed Referral Ordered: Referrals: Dermatology. Evaluate and treat ordered Referral Ordered: Neurology. Appointment date/timeframe: 09/06/2011 ordered Referral Ordered: Podiatry. Appointment date/timeframe: 06/22/2011 ordered Referral Ordered: Rheumatology. (related to Effusion of lower leg joint) ordered Referral Ordered: Orthopedics. (related to Knee pain, left) ordered Referral Ordered: Orthopedics. ordered Referral Ordered: Operations Research Engineer (related to Diabetes mellitus without mention of complication,) ordered Referral Ordered: also need cards consult for possible stress (related to Dyspnea and respiratory abnormalities) ordered Referral Ordered: Cardiology. ordered Referral Ordered: Rheumatology. Appointment date/timeframe: 02/27/2011 ordered Referral Ordered: Vascular Surgery. ordered Referral Ordered: Catering Staff Member (related to Diabetes mellitus without mention of complication,) ordered Referral Ordered: Physical Therapist/Independent. ordered Future Order: Radiology Order US EXTREMITY VEIN(One ext.) [id number] (US EX V UN), Ordered on: Ordered Future Order: Lab Order PT/INR ( [id number]), Ordered on: Ordered Future Order: Radiology Order RA D EXAM KNEE AP/LAT 2V, 03225 (XR KNEEA/L), Ordered on: Ordered Future Order: Radiology Order Ma mmogram: Bilateral screening mammogram (MAMSCR), Appointment on: Ordered Future Order: Lab Order DIRECT L DL (1209), Sent on: Sent Future Order: Lab Order PROTHROM BIN TIME (2051), Sent on: Sent Future Order: Radiology Order US EXTREMITY VEIN(One ext.) 02019 (US EX V UN), Appointment on: Ordered Future Order: Radiology Order RA D EXAM 3V ANK3V FT, [id number] (XR ANK/FT), Ordered on: Ordered Future Order: Radiology Order RA D EXAM FT 3V, 33555 (XR FT 3V), Ordered on: Ordered Future Order: Radiology Order RA D EXAM HAND 3V,WRIST COMP 17894,[id number] (XR HND,WRS), Ordered on: Ordered Future Order: Radiology Order RA D EXAM HIP AP/LAT 2V,91452 (XR HIPcomp), Ordered on: Ordered Future Order: Radiology Order US EXTREMITY VEIN(One ext.) 02047 (US EX V UN), Appointment on: Ordered Future Order: Radiology Order KU B - Abd single AP([id number]) (KUB), Ordered on: Ordered Future Order: Radiology Order RA D EXAM SPINE Lumbar AP/Lat, AP Pelvis (XR LAPPAP), Ordered on: Ordered Future Order: Lab Order Urine Di pstick (76018), Appointment on: Ordered Future Order: Lab Order PROTHROM BIN TIME (2051), Ordered on: Ordered Future Order: Lab Order HEPATIC FUNCTION PANEL (981), Sent on: Sent Future Order: Lab Order PROTHROM BIN TIME (2052), Sent on: Sent Future Order: Lab Order GLYCOHEM OGLOBIN-A1C (1108), Sent on: Sent Future Order: Lab Order PROTHROM BIN TIME (2051), Sent on: Sent Future Order: Lab Order URINE CO LONY COUNT (6896), Sent on: Sent Future Order: Lab Order PROTHROM BIN TIME (2051), Sent on: Sent Future Order: Lab Order PROTHROM BIN TIME (2051), Sent on: Sent Future Order: Lab Order Cardiac Risk Profile (902), Ordered on: Ordered Future Order: Lab Order BASIC ME TABOLIC PANEL (962), Ordered on: Ordered Future Order: Lab Order D-DIMER (2062), Sent on: Sent Future Order: Radiology Order RA D EXAM 3v ANK, 23146 (XR ANK), Ordered on: Ordered Future Order: Lab Order SEDRATE (2029), Sent on: Sent Future Order: Lab Order C-REACTI VE PROTEIN (4695), Sent on: Sent Future Order: Lab Order CBC (W D IFF AND PLATELET) (1979), Sent on: Sent Future Order: Radiology Order US EXTREMITY VEIN HOWIE 50183 (US EX V BI), Appointment on: Ordered History Of Present Illness Encounter Date Complaint History Of Prese nt Illness Hypertension (comments) fell 42 times in 2012 - has had chronic headaches this headache worse now started about 4 days ago but present for 2 weeks . asst with N/V x 3 vomitted - normally does not vomit with her headaches - feels like hot water coming down her head - location is entire head. feeling nauseous right now - feels like can not eat since feeling nauseous , no dysarthria , no double vision , no part of body feeling asleep, no numbness no tingling Hypertension The symptoms are /last 2 Weeks. It is currently getting worse. Risk factors include depression, inactive lifestyle and obesity. The hypertension is exacerbated by anxiety. Associated symptoms include confusion, fatigue, headache, nausea and vomiting. Pertinent negatives include chest pain, diaphoresis, dyspnea and irregular heartbeat/palpitations. Earache (comments) note: righ t earache and dizziness and tinnitus since Thurs last wk. No fever. No skin lesions. Earache Onset: 5 days ag o. The patient states the earache is in the right ear. Associated symptoms include loss of balance and ringing in ears. Diabetes Risk factors inc lude: / [place], obesity, over age [age] years old and sedentary lifestyle. She Has been managed with oral medications. Comorbidity: Hypertension. Associated symptoms include: chest pain and diarrhea. Depression The patient pres ents with difficulty falling asleep but denies depressed mood or diminished interest or pleasure. The Depression is associated with nausea and trembling. The patient denies any vomiting. Diabetes (comments) on medicatio n and no Ses. Denies polyuria, polyphagia, polydipsia Depression (comments) currently been followed by phsychiatrist, was started on lithium, denies ses. pt has stopped Gabapentin on her own, is slowly decreasing benzos. denies to be suicidal hypertension hypertension (comments) on oral medication and no Ses.Denies CP, SOB, MCKNIGHT, BV or palpitations depression (comments) states stewart t since saw last provider who decreased Benzos to 0.5mg pt x 3 daily, also with recent loss of , and issues with son pt is feeling down and started hearing voices in the past week. The voices told me to hang myself but I will never do that I have lori. SHe also having nightmares and trouible to sleep. PT has seen recently and has f/u with psychatry coming up. Hypertension Follow Up of Hypertension (comme nts) taking medications daily and no Ses.Denies CP, BV, MCKNIGHT, SOB, or palpitations depression The patient pres ents with depressed mood and diminished interest or pleasure. Follow Up of Hypertension Preventive exam depression abdominal pain Onset: 4 Days. T he location is left lower quadrant. The quality of the pain is achy and pressure. These symptoms do not occur after meals and on urination. Aggravating factors include anxiety and lying down and lifting legs. Pertinent negatives include blood in stool, constipation, diarrhea, dizziness, hematuria, nausea and vomiting. Follow Up of Anxiety The patient presents with anxious/fearful thoughts, compulsive thoughts, difficulty concentrating, difficulty falling asleep, difficulty staying asleep, excessive worry, fatigue, hallucinations (auditory), poor judgment, racing thoughts and restlessness but denies depressed mood, diminished interest or pleasure or thoughts of or suicide. The patient's risk factors include social isolation. The Follow Up of Anxiety is aggravated by lack of sleep. The patient's relieving factors are medication (clonazepam). Additional information: Patient recently came back [place] where [place] was for 1 year. pt was taking clonazepam 1 mg bid and buproprion 150 bid. patient is on waiting list for [facility] center and is establishing here. Patient given 10 pills in ed after acute panic attack and is out today. Admits to hearing voices with panic. Musculoskeletal pain Onset: 3 da ys ago. Severity level is 8. Location: left knee. The pain radiates to the left thigh. Context: there is no injury. The pain is aggravated by walking. There are no relieving factors. Associated symptoms include limping. Additional information: pt reports she has been without her coumadin for a week because she didn't have insurance or money. she c/o left leg pain. She does not feel she has a blood clot because she knows her body and it doesn't feel like it did back in 1996, nor is she sob. Functional Status Date Functional Assessmen t No Information Instructions Date Instruction Additional Infor ortiz Related to Bipol ar I disorder, most recent episode (or current) depressed, unspecified Related to Bipol ar I disorder, most recent episode (or current) depressed, unspecified use the drops Related to Earac he on right take the medicationr eturn one week if worse. Related to Vertigo derm referral Related to Skin growth will have nurse healthcare profclinical nurse manager your company an try to arrange replacement of the mask Related to Sleep apnea low salt dietstart on new medica tion Related to Hypertension, Unspecified continue on current medicationGoal: Decrease total caloric intake (loose weight)Goal: Increase activity/exercise Goal: Monitor home blood sugar readings Goal: Decrease total carbohydrate intake- keep diabetic diet (low carb) Related to Diabetes Mellitus Type 2, Uncomplicated stay on current medications Rela adriana to Bipolar I disorder, most recent episode (or current) depressed, unspecified Related to Bipol ar I disorder, most recent episode (or current) depressed, unspecified Related to Anxie ty stay on current meds keep appt with Behavioral health and psychiatyexercisevolunteer workmeditationhealthy diet Related to Depression take gabapentin at night Related to Ankle pain, left stay on current medicationslow s alt diet Related to Hypertension, Benign Related to Anxie ty Related to Anxie ty Goal: Increase activity/exercise Related to Obesity Goal: Decrease total carbohydrat e intake Related to Diabetes Mellitus Type 2, Uncomplicated Related to Anxie ty Patient was taking 2 mg per day. Written Rx for .5 mg TID = 1.5 per day. At next appt with pcp will reduce to .5 mg bid for 1 mg per day. PCP will take from that point with Psychiatry opinion. Related to Anxiety Walking program recommended Review medications Review medications Walking program recommended Review medications Walking program recommended Walking program recommended Review medications Continue current medication Reviewed medications Activity as tolerated Assessments Type Assessment Date No Information Patient Care Teams Name Effective Dates (start - stop) Status Members No Information
--- OUTSIDE RECORDS SUMMARY | 2025-06-25 13:18 | XMS_ITS | Encounter Summary ---
Author Organization [facility] Address [address] [facility] [address] [place] [phone] Phone Care Team Providers Care Strategic Client Executive Name Role Phone Pcp, Unknown Primary Care Provider Jennie Geronimo MD Primary Care Provid er Encounter Details Date Type Department Care Team (Late st Contact Info) Description 05/15/2024 Procedure Pass [facility] [address] [place] [address] Social History Tobacco Use Types Packs/Day Years Used Date Smoking Tobacco: Former Cigarettes Smokeless Tobacco: Never Education Answer Date Recorded Are you interested [...] on file documented as of this encounter Plan of Treatment Not on file documented as of this encounter Visit Diagnoses Not on filedocumented in this encounter Care Teams Strategic Client Executive Relationship Specialty Start Date End Date Pcp, Unknown PCP - General 05/14/24 05/19/24 Jennie Webb MD [address] [place] [address] PCP - General Internal Medicine 05/20/24 documented as of this encounter Additional Source Comments The information contained in this document represents components of the legal health record. It is not the complete legal health record.[facility]
--- OUTSIDE RECORDS SUMMARY | 2025-06-25 13:18 | XMS_ITS | Clinical Summary ---
Author Organization 175 [facility] Address [address] [place] [address] Phone Care Team Providers Care Physician General Practice Name Role Phone Physician, Pcp Unknown Primary [...] zolpidem (AMBIEN) 5 mg tablet 12/22/2024 Active Social History Tobacco Use Types Packs/Day Years [...] 12/29/2024 3:17 PM EDT Plan of Treatment Health Maintenance Due Date Last Done Comments Breast Cancer Screening 1960 Colorectal Cancer Screening: Colonoscopy 1959 Cervical Cancer Screening: P ap Smear 1980 Zoster Vaccines (1 of 2) 2009 Pneumococcal Vaccine: 50+ Years (2 of 2 - PCV) 09/02/2020 09/02/2019, 12/18/2014 Cholesterol Screening (Lipid Panel) 08/06/2024 Hepatitis C Screening 08/06/2024 Osteoporosis Screening (Bone Density Screening) 08/06/2024 Social Influencers of Health Screening 08/06/2024 Falls Risk Assessment 2024 Depression Screening 09/24/2024 COVID-19 Vaccine (3 - 2024-2 6 season) 2025 06/27/2021, 06/06/2021 Influenza Vaccine (#1) 2025 9, 06/25/2018 DTaP,Tdap,and Td Vaccines (2 - Td or Tdap) 01/02/2029 01/02/2019 RSV Immunization Adult Patients (1 - 1-dose 75+ series) 2034 HIB Vaccines Aged Out No longer eligi [...] patient's age to complete this topic Insurance , [address] [address] [place] [facility] Member Subscriber Plan / Payer (Ef fective 2020-Present) Name:ANGELINA CARDONA Relation to Subscriber:Self Name:Angelina Muhammad Payer ID:[id number] Group ID:[id number] Type:Not on file Address: [address] [place] [id number] Care Teams Physician General Practice Relationship Specialty Start Date End Date Physician, Pcp Unknown PCP - General 12/15/24
--- OUTSIDE RECORDS SUMMARY | 2025-06-25 13:18 | XMS_ITS | Encounter Summary ---
Author Organization [facility] Address [address] [facility] [address] [place] [phone] Phone Care Team Providers Care Hooker Inspector Name Role Phone Pcp, Unknown Primary Care Provider Jennie Geronimo MD Primary Care Provid er Encounter Details Date Type Department Care Team (Late st Contact Info) Description 05/17/2024 Procedure Pass [facility], Ct Scan - [address] [id number] Social History Tobacco Use Types Packs/Day Years [...] on filedocumented in this encounter Care Teams Hooker Inspector Relationship Specialty Start Date End Date Pcp, Unknown PCP - General 05/14/24 05/19/24 Jennie Wbeb MD [address] [place] [address] PCP - General Internal Medicine 05/20/24 documented as of this encounter Additional Source Comments The information contained in this document represents components of the legal health record. It is not the complete legal health record.[facility]
--- OUTSIDE RECORDS SUMMARY | 2025-06-25 13:18 | XMS_ITS | Clinical Summary ---
Author Organization [facility] Address [address] [place] [phone] Phone Care Team Providers Care Artillery Meteorological Man Name Role Phone Jennie Webb MD Primary Care Provid er Allergies Active Allergy Reactions Criticality Noted Date Comments Latex 05/14/2024 Lidocaine 05/14/2024 Medications atorvastatin (LIPITOR) 40 MG tablet Take 40 mg by mouth daily. Active hydroCHLOROthiazide 25 MG tablet Take 25 mg by mouth daily. Active amitriptyline (ELAVIL) 100 MG tablet Take 100 mg by mouth nightly at bedtime. Active rivaroxaban (XARELTO) 20 mg Tab Take 20 mg by mouth daily. Active amantadine HCl (SYMMETREL) 100 mg capsule Take 100 mg by mouth 2 (two) times a day. Active donepeziL (ARICEPT) 10 MG tablet Take 10 mg by mouth nightly at bedtime. Active buPROPion (WELLBUTRIN SR) 150 MG SR 12 hr tablet Take 150 mg by mouth daily. Active prazosin (MINIPRESS) 2 MG capsule Take 2 mg by mouth 3 (three) times a day. Active lisinopril (PRINIVIL,ZESTRIL) 5 MG tablet Take 5 mg by mouth daily. Active benztropine (COGENTIN) 0.5 MG tablet Take 0.5 mg by mouth 2 (two) times a day. Active zolpidem (AMBIEN) 5 MG tablet Take 5 mg by mouth nightly at bedtime as needed for sleep. Active clonazePAM (KLONOPIN) 0.5 MG disintegrating tablet Take 0.5 mg by mouth 2 (two) times a day as needed for anxiety. Active oxyCODONE-acetamino phen (PERCOCET) 5-325 mg per tablet Take 1 tablet by mouth every 8 (eight) hours as needed for pain (specific location in comments) (left hip). 4 Active loperamide (IMODIUM A-D) 2 mg tablet Take 1 tablet by mouth as needed for diarrhea. 4 Active Active Problems Problem Noted Date Diagnosed Date Abdominal mass 05/15/2024 Assessment & Plan (05/19/2024 1:37 PM EDT): The masslike lesion in the lower left rectus abdominal muscle overlies the region of the prior hernia repair, mesh had been used. Dr. Hinson has asked for the surgical records which we are trying to obtain, he did not feel that emergent transfer this weekend was indicated. Provided culture results, will de-escalate from Zosyn to Unasyn today. S/P IR drain placed on 05/15; Cx growing MSSA. Repeat CT shows marked improvement in collection. 05/19: Afebrile, abdominal pain improving. Continues to have some discomfort at site of drain. 40 cc scant serosanguineous output overnight. Remains without leukocytosis. Cultures growing MSSA. Tolerating Zosyn, today being day 4. Discussed with Dr. Hinson of surgery, anticipates removing drain today while continuing to monitor overnight for possible discharge tomorrow. Patient will need close follow-up with PCP to monitor for any reoccurrence. -Continue with regular diet; tolerating -Nutritional consult appreciated -Continue with drain placed on 05/15 Monitoring output; minimal currently Possible drain removal today by surgery -Surgery consult appreciated Follow-up w/PCP on discharge; recommend referral to [facility] surgery if reoccurs -Following culture, growing MSSA; MRSA screen negative -Discontinue Zosyn, start Unasyn-day 4, anticipate 10 to 14-day course Anticipate transition to Augmentin on discharge -ID consult appreciated on abx duration -Probiotic -Pain management with as needed Tylenol, oxycodone, IV Dilaudid Parkinson's disease 05/15/2024 Assessment & Plan (05/18/2024 10:58 AM EDT): Continue amantadine 100 mg twice daily and benztropine 0.5 mg twice daily. Typically ambulates with a walker, appreciate OT, up out of bed for meals. Anemia in other chronic diseases classified else where 05/15/2024 Assessment & Plan (05/19/2024 11:11 AM EDT): Uncertain of the etiology of her anemia. She follows with [facility]. Patient has a port for transfusions and receives transfusions about 4 times a year. There is mild iron deficiency, declines iron supplements and prefers to follow-up with her outpatient provider. Hemoglobin currently stable. No signs of active bleeding. -Stable Chronic deep vein thrombosis (DVT) of left lower extremity 05/15/2024 Assessment & Plan (05/18/2024 10:58 AM EDT): Significant past medical history with recurrent clots, Xarelto restarted as per Dr. Hinson. Alzheimer's disease 05/15/2024 Assessment & Plan (05/17/2024 8:51 AM EDT): Mild, I will update family daily, spoke with the patient's daughter healthcare proxy yesterday, using video director of clinical education for both conversations with patient and family. Family History Medical History Relation Comments Lumbar disc disease Daughter Coronary artery disease Father Clotting disorder Mother Kidney cancer Mother Relation Status Comments Daughter Alive Father Mother Alive Son 1 Son 2 Social History Tobacco Use Types Packs/Day Years Used Date Smoking Tobacco: Former Cigarettes Smokeless Tobacco: Never Tobacco Cessation:Counseling Given: Not Answered Home Health Assessment: Transportation Answer Date Recorded [...] Sign Reading Time Taken Comments Blood Pressure 124/76 07/09/2024 10:30 AM EDT Pulse 55 07/09/2024 10:30 AM EDT Temperature 36.6 C (97.9 F) 07/09/2024 10:30 AM EDT Respiratory Rate 16 06/09/2024 9:10 AM EDT Oxygen Saturation 100% 07/09/2024 10:30 AM EDT Inhaled Oxygen Concentration - - Weight 89.8 kg (198 lb) 05/14/2024 10:49 PM EDT Height 165.1 cm (5' 5 ) 05/14/2024 10:49 PM EDT Body Mass Index 32.95 05/14/2024 10:49 PM EDT Plan of Treatment Health Maintenance Due Date Last Done Comments Adult Td,Tdap Booster 1959 LIPID PANEL 1959 DEPRESSION SCREENING 1971 SMOKING Hx and SMOKELESS TOBACCO SCREENING 1972 HEPATITIS C SCREENING 1977 HIV ONE-TIME SCREENING (18-65 YEARS) 1977 MAMMOGRAM 1999 COLOGUARD 2004 COLONOSCOPY 2004 COLORECTAL CANCER SCREENING 2004 FIT TEST 2004 FOBT 2004 SIGMOIDOSCOPY 2004 VIRTUAL COLONOSCOPY 2004 PNEUMOCOCCAL VACCINES (50+ years) (1 of 1 - PCV) 2009 ZOSTER VACCINES (1 of 2) 2009 RSV VACCINE (1 - Risk 60-74 years 1-dose series) 2019 OSTEOPOROSIS SCREENING INITIAL (ONE-TIME) 2024 INFLUENZA VACCINE (#1) 2025 CREATININE LEVEL 05/19/2025 05/19/2024, , 05/17/2024, Additional history exists POTASSIUM LEVEL 05/19/2025 05/19/2024, 04/25, 05/17/2024, Additional history exists COVID-19 VACCINE ( season) 2025 SCREENING FOR DIABETES 05/19/2027 05/19/2024 HEPATITIS A VACCINES Aged Out No long er eligible based on patient's age to complete this topic HIB VACCINES Aged Out No longer eligi ble based on patient's age to complete this topic MENINGOCOCCAL VACCINES (ACWY) Aged Out No longer eligible based on patient's age to complete this topic MENINGOCOCCAL VACCINES (B) Aged Out N o longer eligible based on patient's age to complete this topic Medical Devices Not on file Procedures Procedure Name Priority Date/Time Associated Diagnosis Comments BASIC METABOLIC PANEL Routine 05/19/2024 6:00 AM EDT from Last 3 Months or Most Recently Relevant to Health Maintenance Results * Basic metabolic panel (05/19/2024 6:00 AM EDT) SODIUM 143 133 - 146 mmol/L [facility] CHLORIDE 101 96 - 108 mmol/L [facility] POTASSIUM 3.5 3.3 - 5.1 mmol/L [facility] CO2 30 21 - 35 mmol/L [facility] BUN 6 6 - 19 mg/dL [facility] CREATININE 0.80 0.5 - 1.5 mg/dL [facility] GLUCOSE 87 70 - 99 mg/dL [facility] CALCIUM 8.9 8.4 - 10.3 mg/dL [facility] EGFR 82 >59 mL/min/1.7 3m2 [facility] Comment:Estimated glomerular filtration rate calculated using the CKD-EPI refit equation. ANION GAP 16 10 - 20 mmol/L [facility] Blood 05/19/2024 6:00 AM EDT 05/19/2024 7:31 AM EDT us Khoa Biggs PA-C LAB BLOOD ORDERABLES Fi nal Result [address] [phone] from Last 3 Months or Most Recently Relevant to Health Maintenance Insurance MEDICARE REPLACEMENT MEDICARE REPLACEMENT MEDICARE REPLACEMENT MEDICARE REPLACEMENT MEDICARE REPLACEMENT [address] [place] [id number] [place] [address] MEDICARE REPLACEMENT ANG HUA [id number] Advance Directives For more information, please contact: [phone] (9AM - 5PM [facility], Sunday-Sunday) * Full Code (Latest Code Status on File) Date Activated Date Inactivated Comments 05/15/2024 10:32 AM Question Answer Comments Code Status Confirmed With: Patient Code Status Communicated To: Inpatient Attending Care Teams Artillery Meteorological Man Relationship Specialty Start Date End Date Jennie Webb MD [address] [place] [address] PCP - General Internal Medicine 05/20/24 Additional Source Comments The information contained in this document represents components of the legal health record. It is not the complete legal health record.[facility]
--- OUTSIDE RECORDS SUMMARY | 2025-06-25 13:18 | XMS_ITS | Encounter Summary ---
Author Organization [facility] Address [address] [facility] [address] [place] [address] Phone Care Team Providers Care Hat Brusher Machine Name Role Phone Pcp, Unknown Primary Care Provider Jennie Geronimo MD Primary Care Provid er Encounter Details Date Type Department Care Team (Late st Contact Info) Description 05/14/2024 Procedure Pass [facility], Ct Scan - [address] [phone] Social History Tobacco Use Types Packs/Day Years [...] 8:36 PM EDT Melina Mcneil RN * [place] Suicide Severity Rating Scale (Screener/Recent Self-Report) Question [...] on filedocumented in this encounter Care Teams Hat Brusher Machine Relationship Specialty Start Date End Date Pcp, Unknown PCP - General 05/14/24 05/19/24 Jennie Webb MD [address] [place] [address] PCP - General Internal Medicine 05/20/24 documented as of this encounter Additional Source Comments The information contained in this document represents components of the legal health record. It is not the complete legal health record.[facility]
== END ==
LOC: HO.SL 11:26
PROVIDERS: PCP Internal Medicine; Visit Provider Internal Medicine
DX: R40.0 Somnolence (principal); R06.83 Snoring; G47.33 Obstructive sleep apnea (adult) (pediatric)
CPT/HCPCS: 95806

== ENCOUNTER 2025-07-07 15:25 | Outpatient (AMB) | payer OTHER, SELFPAY ==
--- OUTSIDE RECORDS SUMMARY | 2012-02-05 | XMS_ITS | Encounter Summary ---
Author Organization [facility] Address [address] [place] [address] Phone Care Team Providers Care Pony Cylinder Press Operator Name Role Phone Unavailable Primary Care Provider Unavailabl e Reason for Visit * Auth/Cert (Routine) Specialty Diagnoses / Procedures Referred By Nelson patel Referred To Contact Diagnoses Abdominal mass LLQ abdominal pain Referral ID Status Reason Start Date Expiration Date Visits Re quested Visits Authorized [id number] 1 1 Encounter Details Date Type Department Care Team (Late st Contact Info) Description 02/05/2012 Hospital Encounter [facility],Outside Imaging [address] [place] [address] Unknown, Unknown, Social History Tobacco Use Types [...] 8:36 PM EDT Melina Mcneil RN * [place] Suicide Severity Rating Scale (Screener/Recent Self-Report) Question [...] It is not the complete legal health record.[facility]
[2025-07-07 15:56] VITALS: BP 140/68; PULSE 79; TEMP 36.2; O2SAT 96; BMI 31.1
--- NOTE | 2025-07-07 15:56 | MHC.PC.OV ---
Vital Signs 07/07/25 15:56 Height 5 ft 5 in Weight 186 lb 15.232 oz BMI 31.1 BP 140/68 H Blood Pressure Location Lt brachial Position Sitting Pulse 79 Pulse Source Pulse Oximeter Temp 97.1 F Temp Source Temporal Artery Scan Pulse Oximetry (%) 96 Oxygen Delivery Method Room Air Intake Visit Reasons: Gastro/ colonoscopy F/U Line Maintainer Section Required: No Accompanied by: LOGISTICS ENGINEER Allergies latex (LATEX) Allergy (Intermediate, Verified 07/07/25 16:08) SWELLING nabumetone Allergy (Intermediate, Verified 07/07/25 16:08) pruritus aspirin (ASA) Allergy (Mild, Verified 07/07/25 16:08) BLEEDING, lip edema lidocaine (LIDOCAINE) Allergy (Mild, Verified 07/07/25 16:08) SWELLING,ITCHING, pruritus carbidopa-levodopa Allergy (Severe, Uncoded 07/07/25 16:08) tracheal swelling Medication List - Last Reconciled 07/07/25 by Jennie Hahn MD acetaminophen ER (8 Hour Pain Reliever) 1,300 mg (2 x 650 mg) PO Q8H PRN albuterol sulfate 90 mcg/actuation 2 puffs inhalation Q6-8H 30 days amantadine HCl 100 mg PO BID 30 days amitriptyline 100 mg PO BEDTIME atorvastatin 40 mg PO BEDTIME 90 days benztropine 0.5 mg PO BID betamethasone valerate 0.1% 1 appl topical DAILY PRN 2 weeks bupropion HCl XL 150 mg PO DAILY calcium citrate-vitamin D3 315 mg-6.25 mcg (250 unit) 2 tabs PO BID [Clamp on tub grab bar As directed] clonazepam 0.5 mg PO DAILY 30 days cromolyn 4% 1 drp ophthalmic (eye) 6XD 7 days docusate sodium 100 mg PO BID donepezil 10 mg PO DAILY 90 days doxycycline monohydrate 100 mg PO BID ferrous sulfate (iron) 325 mg PO DAILY [Grab bar 24 inch for wall As directed] hydrochlorothiazide 25 mg PO DAILY 90 days lactulose 10 grams (15 mL) PO BEDTIME PRN 30 days lisinopril 5 mg PO DAILY 90 days miscellaneous medical supply raised toilet seat- use as directed oxycodone-acetaminophen 5-325 mg (Percocet) 1 tab PO Q8H PRN 30 days pantoprazole 40 mg PO DAILY 90 days prazosin 2 mg PO DAILY rivaroxaban (Xarelto) 20 mg PO DAILY sennosides (Jaimee-christian) 17.2 mg (2 x 8.6 mg) PO BID PRN [shower seat As directed] tizanidine 4 mg PO TID PRN 30 days [Top transfer bench As directed] walker As directed zolpidem 5 mg PO BEDTIME 30 days Tobacco use date assessed: 07/07/25 Fall risk assessment: 2 + Falls in past year Last assessed Fall Risk: 07/07/25 Dental Screening Dental Screen Date: 07/07/25 Did you have a dental visit in the last 12 months?: Yes Did you have a dental problem in the last 6 months where you did not have access to dental care?: No Was dental information given to patient?: Patient has dentist HPI HPI Comments History of Present Illness Details The patient is a 64-year-old female presenting with management of chronic conditions including overactive bladder, depression, anxiety, constipation, memory impairment, hypertension, lumbar pain, left knee pain, and Parkinson's disease. The overactive bladder is currently managed with medication, and the patient continues to take amantadine for this condition. Depression and anxiety are being treated with bupropion and clonazepam, respectively. The patient experiences constipation, for which lactulose is prescribed, and she is advised to take it every two hours until bowel movement occurs. Memory impairment is addressed with donepezil. Hypertension is managed with hydrochlorothiazide and lisinopril. The patient has a history of lumbar pain and left knee pain, and she is referred to orthopedics for further evaluation. The patient underwent a sleep study which returned negative for sleep apnea, and she is scheduled for a follow-up with gastroenterology and a mammogram later in the month. She also has an appointment with a neurologist in September for Parkinson's disease management. [facility] Medical History (Updated 07/07/25 @ 16:27 by Jennie Hahn MD) Pure hypercholesterolemia Postmenopausal Intestinal malabsorption following gastrectomy BMI 29.0-29.9,adult Overweight (BMI 25.0-29.9) Chronic back pain CAD (coronary artery disease) Hyperlipidemia DVT (deep vein thrombosis) in Cholecystectomy planned Stroke History of DVT (deep vein thrombosis) GERD (gastroesophageal reflux disease) Essential hypertension Idiopathic Parkinsonism ITZ (obstructive sleep apnea) Nausea Constipation by delayed colonic transit Muscle spasm Surgical History Hx of cholecystectomy S/P laparoscopic sleeve gastrectomy S/P laparoscopic sleeve gastrectomy S/P endoscopy S/P colonoscopy S/P hysterectomy with oophorectomy (Unknown) S/P appendectomy Family History Father No problems noted. Mother Hypertension Kidney malignancy Social History Household Members: Family Housing: House Alcohol intake: never Patient Tobacco Use Status: Former Tobacco user Tobacco use type: Cigarette e-Cigarette/Vaping Use: Never Used Second Hand Smoke Exposure: No service: No Current occupational status: disabled Cognitive needs: Yes Hearing needs: No Vision needs: No Questionnaire PHQ-9 Over the last 2 weeks, how often have you been bothered by any of the following problems? 1. Little interest or pleasure in doing things: several days 2. Feeling down, depressed, or hopeless: not at all 3. Trouble falling or staying asleep, or sleeping too much: not at all 4. Feeling tired or having little energy: not at all 5. Poor appetite or overeating: not at all 6. Feeling bad about yourself - or that you are a failure or have let yourself or your family down: not at all 7. Trouble concentrating on things, such as reading the newspaper or watching television: not at all 8. Moving or speaking so slowly that other people could have noticed. Or the opposite - being so fidgety or restless that you have been moving around a lot more than usual: not at all 9. Thoughts that you would be better off or of hurting yourself in some way: not at all Total score: 1 Depression Screening Interpretation: Positive Depression Screening Follow-up: Existing condition, In treatment and Follow-up Visit Requested Depression Screening Done: Yes 98022 - PHQ-9 Billing: Yes Source: Developed by Drs. Ahsan Howard, Delaney Morales, Cedrick Mcknight and colleagues, with an educational kobe from [employer]. Thrive Questionnaire Date Thrive assessed: 03/30/25 I am a: Patient What is your living situation today?: I choose not to answer this question Within the past 12 months, did the food you bought not last and you didn't have the money to get more?: I choose not to answer this question Within the past 12 months, did you worry whether your food would run out before you got money to buy more?: I choose not to answer this question Do you have trouble paying for medicines?: I choose not to answer this question Do you have trouble getting transportation to medical appointments?: I choose not to answer this question Do you have trouble paying your heating and electricity bill?: I choose not to answer this question Do you have trouble taking care of your child, family member or friend?: I choose not to answer this question Do you have trouble with day-to-day activities such as bathing, preparing meals, shopping, managing finances, etc.?: I choose not to answer this question Are you currently unemployed and looking for a job?: I choose not to answer this question Are you interested in more education?: I choose not to answer this question Please select the resources that you would like help with: None Currently or been in a relationship where the following occur: I choose not to answer THRIVE Score: 0 AUDIT C Alcohol Use Questionnaire (AUDIT-C) 1. How often do you have a drink containing alcohol?: Never 3. How often do you have six or more drinks on one occasion?: Never Total Score: 0 Score Reviewed/Action Taken: No KANCHAN-7 AMB Questionnaire KANCHAN-7 Date KANCHAN - 7 assessed: 03/30/25 Feeling nervous, anxious, or on edge: 2 = More than half the days Not being able to stop or control worryin = More than half the days Worrying too much about different things: 2 = More than half the days Trouble relaxin = More than half the days Being so restless that it is hard to sit still: 2 = More than half the days Becoming easily annoyed or irritable: 1 = Several days Feeling afraid as if something awful might happen: 1 = Several days Total KANCHAN-7 score (0-4 normal; 5-9 mild; 10-14 moderate; 15-21 severe): 12 Source: Developed by Drs. Ahsan Howard, Delaney Morales, Cedrick Mcknight and colleagues, with an educational kobe from [employer]. KANCHAN-7 Assessment Billing KANCHAN-7 Assessment Tool: KANCHAN-7 Assessment 04567 Review of Systems Const All systems reviewed & are unremarkable except as noted in HPI and below Card Denies chest pain at rest, Denies chest pain with activity, Denies edema, Denies irregular heart rhythm, Denies claudication, Denies dyspnea, Denies dyspnea on exertion, Denies orthopnea, Denies paroxysmal nocturnal dyspnea and Denies slow heart rate Resp Denies cough, Denies dyspnea and Denies dyspnea on exertion GI Denies abdominal pain, Denies change in bowel habits, Denies excessive flatus, Denies nausea and Denies vomiting Denies urinary incontinence, Denies urinary hesitancy and Denies urinary urgency Musc Denies atrophy, Denies deformity and Denies limited range of motion Physical exam (Primary Care) Vital Signs: Last Vital Signs Temp 97.1 F 07/07/25 15:56 Pulse 79 07/07/25 15:56 BP 140/68 H 07/07/25 15:56 Pulse Ox 96 07/07/25 15:56 Oxygen Delivery Method Room Air 07/07/25 15:56 BMI result Body Mass Index 31.1 BMI Assessment/Plan discussion: High BMI High, discussed plan: lifestyle, weight reduction, dietary and physical activity Tobacco/Smoking Status: Tobacco use Status Tobacco use date assessed 07/07/25 07/07/25 16:03 Patient Tobacco Use Status Former Tobacco user 07/07/25 16:03 Tobacco use type Cigarette 07/07/25 16:03 e-Cigarette/Vaping Use Never Used 07/07/25 16:03 PHQ-9: PHQ-9 Score PHQ-9: Total score 1 07/07/25 16:03 Depression Screening Interpretation: Positive Depression Screening Follow-up: Existing condition, In treatment and Follow-up Visit Requested Thrive Assessment: Date of Thrive Assessment Date Thrive assessed 03/30/25 07/07/25 16:03 Currently or been in a relationship where the following occur: I choose not to answer Resp Effort & Inspection: normal respiratory effort Auscultation: clear to auscultation bilaterally Cardio Jugular venous distension: no JVD Rate: regular rate Rhythm: regular rhythm Heart sounds: S1 normal heart sound present and S2 normal heart sound present Extrem General: Yes full ROM Coding Level of Care Code Est Pt Level 4 (96548) Complex EM visit Add On G2211 Diagnoses Essential hypertension I10 Left lower quadrant abdominal pain R10.32 Idiopathic Parkinsonism G20 Chronic midline low back pain with bilateral sciatica M54.41; M54.42; G89.29 Back pain location: low back pain Back pain laterality: midline Sciatica presence: with sciatica Sciatica laterality: bilateral sciatica Chronic pain of left knee M25.562; G89.29 Chronicity: chronic Additional Codes PHQ-9 - 47774 - PHQ-9 Billing: Yes ([id number]) KANCHAN-7 Assessment Billing - KANCHAN-7 Assessment Tool: KANCHAN-7 Assessment 21135 ([id number]) Time Spent (min) 22 Assessment & Plan Assessment & Plan (1) Essential hypertension: Code(s): I10 - Essential (primary) hypertension Category: Medical (2) Left lower quadrant abdominal pain: Code(s): R10.32 - Left lower quadrant pain Category: Medical (3) Idiopathic Parkinsonism: Code(s): G20 - Parkinson's disease Category: Medical (4) Chronic back pain: Code(s): M54.9 - Dorsalgia, unspecified; G89.29 - Other chronic pain Category: Medical Qualifiers: Back pain location: low back pain Back pain laterality: midline Sciatica presence: with sciatica Sciatica laterality: bilateral sciatica Qualified Code(s): M54.41 - Lumbago with sciatica, right side; M54.42 - Lumbago with sciatica, left side; G89.29 - Other chronic pain (5) Left knee pain: Code(s): M25.562 - Pain in left knee Category: Medical Qualifiers: Chronicity: chronic Qualified Code(s): M25.562 - Pain in left knee; G89.29 - Other chronic pain Plan Plan 1. Overactive Bladder The patient continues to manage overactive bladder with amantadine. 2. Depression Depression is being treated with bupropion. 3. Anxiety Anxiety is managed with clonazepam. 4. Constipation Constipation is addressed with lactulose, to be taken every two hours until bowel movement occurs. 5. Memory Impairment Memory impairment is managed with donepezil. 6. Hypertension Hypertension is controlled with hydrochlorothiazide and lisinopril. 7. Lumbar Pain The patient is referred to orthopedics for lumbar pain evaluation. 8. Left Knee Pain Left knee pain is also referred to orthopedics for further assessment. 9. Parkinson's Disease Parkinson's disease is managed by neurology, with a follow-up scheduled in September. Orders: Orders CT abdomen w IV con Today R10.32 - Left lower quadrant pain Medications: Refilled lactulose 10 grams (15 mL) PO BEDTIME PRN 473 mL 0RF constipation 30 days
--- OUTSIDE RECORDS SUMMARY | 2025-07-07 18:13 | XMS_ITS | Encounter Summary ---
Author Organization [facility] Address [address] [facility] [address] [place] [id number] Phone Care Team Providers Care Sales & Service Associate Name Role Phone Pcp, Unknown Primary Care Provider Jennie Geronimo MD Primary Care Provid er Encounter Details Date Type Department Care Team (Late st Contact Info) Description 05/15/2024 Procedure Pass [facility] [address] [place] [address] Social History Tobacco Use Types Packs/Day Years [...] on filedocumented in this encounter Care Teams Sales & Service Associate Relationship Specialty Start Date End Date Pcp, Unknown PCP - General 05/14/24 05/19/24 Jennie Webb MD [address] [place] [address] PCP - General Internal Medicine 05/20/24 documented as of this encounter Additional Source Comments The information contained in this document represents components of the legal health record. It is not the complete legal health record.[facility]
--- OUTSIDE RECORDS SUMMARY | 2025-07-07 18:13 | XMS_ITS | Encounter Summary ---
Author Organization [facility] Address [address] [facility] [address] [place] [address] Phone Care Team Providers Care Quality Assurance Tester Name Role Phone Pcp, Unknown Primary Care Provider Jennie Geronimo MD Primary Care Provid er Encounter Details Date Type Department Care Team (Late st Contact Info) Description 05/17/2024 Procedure Pass [facility], Ct Scan - [address] [id number] Social History Tobacco Use Types Packs/Day Years [...] on filedocumented in this encounter Care Teams Quality Assurance Tester Relationship Specialty Start Date End Date Pcp, Unknown PCP - General 05/14/24 05/19/24 Jennie Webb MD [address] [place] [address] PCP - General Internal Medicine 05/20/24 documented as of this encounter Additional Source Comments The information contained in this document represents components of the legal health record. It is not the complete legal health record.[facility]
--- OUTSIDE RECORDS SUMMARY | 2025-07-07 18:13 | XMS_ITS | Clinical Summary ---
Author Organization [facility] Address [address] [place] [phone] Phone Care Team Providers Care Labeling Machine Operator Name Role Phone Jennie Webb MD Primary [...] Follow-up w/PCP on discharge; recommend referral to [facility] surgery if reoccurs -Following culture, growing MSSA; [...] etiology of her anemia. She follows with [facility]. Patient has a port for transfusions and [...] patient's daughter healthcare proxy yesterday, using video bi data modeler for both conversations with patient and family. [...] 2009 ZOSTER VACCINES (1 of 2) 2009 OSTEOPOROSIS SCREENING INITIAL (ONE-TIME) 2024 INFLUENZA VACCINE (#1) 2025 CREATININE LEVEL 05/19/2025 05/19/2024, , 05/17/2024, Additional history exists POTASSIUM LEVEL 05/19/2025 05/19/2024, 04/25, 05/17/2024, Additional history exists COVID-19 VACCINE ( - season) 2025 SCREENING FOR DIABETES 05/19/2027 05/19/2024 RSV VACCINE (1 - 1-dose 75+ series) 2034 HEPATITIS A VACCINES Aged Out No long [...] EDT) SODIUM 143 133 - 146 mmol/L [facility] CHLORIDE 101 96 - 108 mmol/L [facility] POTASSIUM 3.5 3.3 - 5.1 mmol/L [facility] CO2 30 21 - 35 mmol/L [facility] BUN 6 6 - 19 mg/dL [facility] CREATININE 0.80 0.5 - 1.5 mg/dL [facility] GLUCOSE 87 70 - 99 mg/dL [facility] CALCIUM 8.9 8.4 - 10.3 mg/dL [facility] EGFR 82 >59 mL/min/1.7 3m2 [facility] Comment:Estimated glomerular filtration rate calculated using the CKD-EPI refit equation. ANION GAP 16 10 - 20 mmol/L [facility] Blood 05/19/2024 6:00 AM EDT 05/19/2024 7:31 AM EDT us Khoa Biggs PA-C LAB BLOOD ORDERABLES Fi nal Result [address] [phone] from Last 3 Months or Most Recently Relevant to Health Maintenance Insurance MEDICARE REPLACEMENT ST [address] [place] [address] MEDICARE REPLACEMENT MEDICARE REPLACEMENT MEDICARE REPLACEMENT MEDICARE REPLACEMENT ST [address] [place] [address] MEDICARE REPLACEMENT [place]G [place] [id number] Advance Directives For more information, please contact: [phone] (9AM - 5PM [facility], Sunday-Sunday) * Full Code (Latest Code Status on File) Date Activated Date Inactivated Comments 05/15/2024 10:32 AM Question Answer Comments Code Status Confirmed With: Patient Code Status Communicated To: Inpatient Attending Care Teams Labeling Machine Operator Relationship Specialty Start Date End Date Jennie Webb MD [address] [place] [address] PCP - General Internal Medicine 05/20/24 Additional Source Comments The information contained in this document represents components of the legal health record. It is not the complete legal health record.[facility]
--- OUTSIDE RECORDS SUMMARY | 2025-07-07 18:13 | XMS_ITS | Encounter Summary ---
Author Organization [facility] Address [address] [facility] [address] [place] [address] Phone Care Team Providers Care Linting Machine Operator Name Role Phone Pcp, Unknown Primary Care Provider Jennie Geronimo MD Primary Care Provid er Encounter Details Date Type Department Care Team (Late st Contact Info) Description 05/14/2024 Procedure Pass [facility], Ct Scan - [address] [phone] Social History Tobacco Use Types Packs/Day Years [...] 8:36 PM EDT Melina Mcneil RN * [place] Suicide Severity Rating Scale (Screener/Recent Self-Report) Question [...] on filedocumented in this encounter Care Teams Linting Machine Operator Relationship Specialty Start Date End Date Pcp, Unknown PCP - General 05/14/24 05/19/24 Jennie Webb MD [address] [place] [address] PCP - General Internal Medicine 05/20/24 documented as of this encounter Additional Source Comments The information contained in this document represents components of the legal health record. It is not the complete legal health record.[facility]
== END 2025-07-07 16:34 | disposition home or self-care (01) ==
LOC: HO.HMCH 15:26
PROVIDERS: PCP Internal Medicine; Visit Provider Internal Medicine
DX: I10 Essential (primary) hypertension (principal); R10.32 Left lower quadrant pain; G20.C Parkinsonism, unspecified; M54.41 Lumbago with sciatica, right side; M54.42 Lumbago with sciatica, left side; G89.29 Other chronic pain; M25.562 Pain in left knee

== ENCOUNTER → 2025-07-07 15:25 | Outpatient (BNVA) | payer OTHER, SELFPAY | PROVIDERS: PCP Internal Medicine; Visit Provider Internal Medicine | DX: N32.81 Overactive bladder (principal); F41.9 Anxiety disorder, unspecified; F32.A Depression, unspecified; K59.00 Constipation, unspecified; I10 Essential (primary) hypertension; M25.562 Pain in left knee; R10.32 Left lower quadrant pain; G20.A1 Parkinson's disease without dyskinesia, without mention of fluctuations; M54.41 Lumbago with sciatica, right side; M54.42 Lumbago with sciatica, left side; G89.29 Other chronic pain | CPT/HCPCS: 96127; 99212 ==